=== PATIENT | female | born 1975 | race African-American/Black ===

== ENCOUNTER 2017-04-04 06:39 | Emergency (ER) | payer OTHER ==
[2017-04-04 07:21] LABS: #Basophils 0.1 thou/uL (0.0-0.2); #Eosinphils 0.1 thou/uL (0.0-0.7); #Lymphocytes 3.7 thou/uL (1.20-3.40); #Monocytes 0.9 thou/uL (0.11-0.59); #Neutrophils 3.3 thou/uL (1.40-6.50); %Basophils 1.4 % (0.0-1.0); %Eosinophils 1.7 % (0.0-10.0); %Lymphocytes 45.4 % (21.0-51.0); %Monocytes 10.6 % (0.0-10.0); Hematocrit 28.7 % (36.0-47.0); Mean Platelet Volume 7.7 fL (7.4-10.4); Red Blood Cell (RBC) Count 3.05 mill/uL (4.20-5.40); White Blood Cell (WBC) Count 8.2 thou/uL (4.8-10.8)
[2017-04-04 07:42] LABS: ALT (SGPT) 13 U/L (8-55); AST (SGOT) 54 U/L (5-34); Alkaline Phosphatase 152 U/L (40-150); Anion Gap 13 mmol/L (10-20); BUN (Urea Nitrogen) 5 mg/dL (7.0-18.7); Bilirubin, Total 1.9 mg/dL (0.2-1.2); Calc. Creatinine Clearance 0 mL/min (70-130); Calcium 9.1 mg/dL (7.8-10.44); Carbon Dioxide 22 mmol/L (22-29); Chloride 109 mmol/L (98-107); Estimated GFR-MDRD Greater than 90; Globulin 5.3 g/dL (2.4-3.5); Lipase 98 U/L (8-78); Protein, Total 8.2 g/dL (6.0-8.3)
== END 2017-04-04 10:45 | disposition home or self-care (01) ==
LOC: ERS 06:39
DX: E87.6 Hypokalemia (principal); F10.10 Alcohol abuse, uncomplicated; D64.9 Anemia, unspecified; R18.8 Other ascites; I10 Essential (primary) hypertension; Z87.891 Personal history of nicotine dependence; Z79.899 Other long term (current) drug therapy
CPT/HCPCS: 36415; 80053; 82140; 83690; 85025; 99284

== ENCOUNTER 2019-06-05 17:02 | Inpatient (IN) | payer OTHER, SELFPAY ==
[2019-06-05 17:57] LABS: Hemoglobin 10.7 g/dL (12.0-16.0); Mean Corpuscular HGB CONC 32.8 g/dL (32.0-36.0); Mean Corpuscular Hemoglobin 25.8 pg (27.0-31.0); Mean Corpuscular Volume 78.6 fL (78.0-98.0); Mean Platelet Volume 8.3 fL (7.4-10.4); Platelet Count 113 thou/uL (130-400); RBC Distribution Width 17.9 % (11.5-14.5); Red Blood Cell (RBC) Count 4.15 mill/uL (4.20-5.40); White Blood Cell (WBC) Count 14.4 thou/uL (4.8-10.8)
[2019-06-05 18:11] LABS: Bilirubin Small (Negative); Blood, Urine Large (Negative); Glucose, Urine (Dipstick) Negative (Negative); Leukocyte Trace (Negative); Nitrite Positive (Negative); Protein, Urine (Dipstick) Trace mg/dL (Neg-Trace)
[2019-06-05 18:14] LABS: Clarity Cloudy (Clear)
[2019-06-05 18:17] LABS: Band 12 % (5-11); Lymphocytes 6 % (21-51); MDiff Complete? YES; Monocytes 2 % (0-10); Neutrophil 79 % (42-75); Platelet Morphology Comment Appears Decreased; Reactive Lymphocytes 1 % (0-10); Target Cells SLIGHT = 2-5 cells (100X) (0-1/hpf)
[2019-06-05 18:20] LABS: Bacteria/HPF 4+ HPF (None Seen)
[2019-06-05 18:22] LABS: WBC/HPF 0-3 HPF (0-3)
[2019-06-05 18:23] LABS: Trichomonas/HPF Rare HPF (None Seen)
[2019-06-05 18:23] LABS: ALT (SGPT) 22 U/L (8-55); AST (SGOT) 94 U/L (5-34); Albumin 3.4 g/dL (3.5-5.0); Alkaline Phosphatase 137 U/L (40-110); Anion Gap 15 mmol/L (10-20); BUN (Urea Nitrogen) 10 mg/dL (7.0-18.7); Bilirubin, Total 2.1 mg/dL (0.2-1.2); Calc. Creatinine Clearance 0 mL/min (70-130); Calcium 8.4 mg/dL (7.8-10.44); Carbon Dioxide 19 mmol/L (22-29); Chloride 100 mmol/L (98-107); Estimated GFR-MDRD Greater than 90; Globulin 4.4 g/dL (2.4-3.5); Glucose 106 mg/dL (70-105); Protein, Total 7.8 g/dL (6.0-8.3); Sodium 130 mmol/L (136-145)
--- NOTE | 2019-06-05 18:31 | RAD ---
FRONTAL VIEW CHEST: Indication: Cough. Comparison: 01-10-17 FINDINGS: There is patchy bilateral perihilar opacification as well as superimposed patchy opacity at the left lung base. Cardiac silhouette is accentuated by technique as is pulmonary vasculature. IMPRESSION: Patchy bilateral parenchymal opacities which may be on the basis of atypical pneumonia, or alternativ maliha, edema. Recommend clinical correlation and as necessary imaging follow up may be obtained. POS: ELENITA
[2019-06-05 18:52] LABS: BHCG - Serum Negative (NEGATIVE); Pregs Control Background? CLEAR/WHITE (CLR/WHITE); Pregs Control Bar Appear? YES (CONTROL BAR)
[2019-06-05 18:58] LABS: CKMB 4.7 ng/mL (0-6.6)
[2019-06-05] MEDS ORDERED: cefTRIAXone\\ROCEPHIN 2 GM VIAL ONE (19:51)
[2019-06-05] MEDS ORDERED: Azithromycin 500 MG VIAL ONE (19:51)
[2019-06-05] MEDS ORDERED: Aspirin Chewable 81 MG TAB ONE (19:51)
[2019-06-05] MEDS ORDERED: metroNIDAZOLE 250 MG TAB ONE (20:18)
[2019-06-05] MEDS ORDERED: Oseltamivir 75 MG CAP PO SCH (20:45)
[2019-06-05 20:59] LABS: Lactic Acid 2.4 mmol/L (0.5-2.2)
--- NOTE | 2019-06-05 21:49 | PDOC.FPRHP ---
- History of Present Illness Chief Complaint: Cough History of Present Illness: 43yo F presented to the ED via EMS w/ complaint of cough, fever, and SOB. Pt reported to ED physician that she had been coughing up green phlegm for 2 days. Kids at home are sick as well. Experiencing generalized body aches and weakness. At that time of my evaluation pt was somnolent and verbalized very little. Pt did note that she smoked crack about 2 days ago before her sx had started. She denied currently taking any medication. She denied having medical problems but did state that she knew she had liver disease. Further hx was unable to be obtained. ED Course: Influenza B+, UTI with trich, CXR w/ possible bilateral atypical pna vs edema Received flagyl, azithro, rocephin, and tamiflu. 30mg/kg fluid bolus. - Allergies/Adverse Reactions Allergies Allergy/AdvReac Type Severity Reaction Status Date / Time peach Allergy Rash Verified 06/05/19 23:05 Penicillins Allergy Verified 06/05/19 23:05 - Home Medications Medication Instructions Recorded Confirmed Type No Known 06/05/19 06/05/19 History - History PMHx: Alcoholism cirrhosis, further hx unknown PSHx: Kidney surgery FHx: Unknown Social: Alcoholism, unsure of frequency/quantity; Crack cocaine use - Review of Systems ROS unobtainable: due to mental status General: reports: fever/chills Respiratory: reports: cough, shortness of breath Gastrointestinal: reports: vomiting Neurological: reports: weakness (generalized) - Vital signs BP: 95/47, MAP: 63, Pulse: 108, Resp: 20, Temp: 98.3 (Oral), Pain: 0, O2 sat: 97 on (Room Air), Wt: 68kg - Physical Exam Constitutional: NAD -Constitutional: Somnolent, arousable for very short periods of time HEENT: normocephalic and atraumatic, MMM Neck: supple, no JVD Heart: RRR, normal S1/S2, no murmurs/rubs/gallops, pulses present -Lungs: Inspiratory and expiratory wheezing, mild basilar rales Abdomen: soft, non-tender Musculoskeletal: normal structure, normal tone Neurological: normal sensation -Neurological: Follows commands, limited verbal response Skin: no rash/lesions, good turgor FMR H&P: Results - Labs Result Diagrams: 12/24/19 03:46 06/06/19 03:46 Lab results: WBC 14.4 thou/uL (4.8-10.8) H 06/05/19 17:39 Hgb 10.7 g/dL (12.0-16.0) L 06/05/19 17:39 Hct 32.6 % (36.0-47.0) L 06/05/19 17:39 MCV 78.6 fL (78.0-98.0) 06/05/19 17:39 Plt Count 113 thou/uL (130-400) L 06/05/19 17:39 Band Neuts % (Manual) 12 % (5-11) H 06/05/19 17:39 Sodium 130 mmol/L (136-145) L 06/05/19 17:39 Potassium 4.0 mmol/L (3.5-5.1) 06/05/19 17:39 Chloride 100 mmol/L (98-107) 06/05/19 17:39 Carbon Dioxide 19 mmol/L (22-29) L 06/05/19 17:39 BUN 10 mg/dL (7.0-18.7) 06/05/19 17:39 Creatinine 0.70 mg/dL (0.6-1.1) 06/05/19 17:39 Glucose 106 mg/dL (70-105) H 06/05/19 17:39 Lactic Acid 2.4 mmol/L (0.5-2.2) H 06/05/19 20:34 Calcium 8.4 mg/dL (7.8-10.44) 06/05/19 17:39 Total Bilirubin 2.1 mg/dL (0.2-1.2) H 06/05/19 17:39 AST 94 U/L (5-34) H 06/05/19 17:39 ALT 22 U/L (8-55) 06/05/19 17:39 Alkaline Phosphatase 137 U/L (40-110) H 06/05/19 17:39 CK-MB (CK-2) 4.7 ng/mL (0-6.6) 06/05/19 17:39 Serum Total Protein 7.8 g/dL (6.0-8.3) 06/05/19 17:39 Albumin 3.4 g/dL (3.5-5.0) L 06/05/19 17:39 Urine Ketones Trace mg/dL (Negative) A 06/05/19 18:00 Urine Blood Large (Negative) A 06/05/19 18:00 Urine Nitrite Positive (Negative) A 06/05/19 18:00 Ur Leukocyte Esterase Trace (Negative) H 06/05/19 18:00 Urine RBC 4-6 HPF (0-3) A 06/05/19 18:00 Urine WBC 0-3 HPF (0-3) 06/05/19 18:00 Ur Squamous Epith Cells 4-6 HPF (0-3) A 06/05/19 18:00 Urine Bacteria 4+ HPF (None Seen) A 06/05/19 18:00 - Radiology Interpretation Chest x-ray Status: report reviewed by me (Patchy bilateral parenchymal opacities which may be on the basis of atypical pna or edema.) FMR H&P: A/P - Problem List (1) Atypical pneumonia Current Visit: Yes Status: Acute Code(s): J18.9 - PNEUMONIA, UNSPECIFIED ORGANISM (2) UTI (urinary tract infection) Current Visit: Yes Status: Acute (3) Trichomoniasis Current Visit: Yes Status: Acute (4) Polysubstance abuse Current Visit: Yes Status: Acute Code(s): F19.10 - OTHER PSYCHOACTIVE SUBSTANCE ABUSE, UNCOMPLICATED (5) Influenza B Current Visit: Yes Status: Acute Code(s): J10.1 - FLU DUE TO OTH IDENT INFLUENZA VIRUS W OTH RESP MANIFEST (6) Alcoholism Current Visit: Yes Status: Acute Code(s): F10.20 - ALCOHOL DEPENDENCE, UNCOMPLICATED (7) Cirrhosis Current Visit: No Status: Acute Code(s): K74.60 - UNSPECIFIED CIRRHOSIS OF LIVER Qualifiers: Hepatic cirrhosis type: alcoholic cirrhosis Ascites presence: with ascites Qualified Code(s): K70.31 - Alcoholic cirrhosis of liver with ascites Comment: appears to be end stage with ongoing alc use - Plan Sepsis 2/2 Atypical Pneumonia w/ positive Influenza and Polysubstance abuse - CXR showing bilateral atypical pna vs edema - Recent crack cocaine use prior to sx could have resulted in pneumonitis - Continue to monitor respiratory status, f/u cxr for resolution - Procal of 0.51 - Confirmed influenza B positive - Treat with tamiflu BID - Received azitho and rocephin in ED to cover for atypical pna - Leukocytosis with left shift - continue empiric abx for CAP - LR @ 125 for sepsis - Duoneb treatments prn, supplemental O2 w/ goal >92 - Admit to IMUC for bilateral pna findings Indeterminate troponin - 0.042 -> 0.056 - Likely 2/2 demand ischemia from cocaine use and respiratory illness - Continue to trend UTI - +nitrite and leuks - Rocephin in ED, will continue Trichomoniasis - Seen on UA - Treated w/ 2g Flagyl in ED Alcoholism w/ Hx of Cirrhosis and Ascites - Currently somnolent w/ alcohol level of 106 - Ammonia of 97, likely near patient's baseline - Will monitor pt's mental status as alcohol level resolves, if continued AMS will consider lactulose tx - ASE protocol Lactic Acidosis - IVF resuscitation and optimizing respiratory status - Trend for resolution Hyponatremia - Chronic based on previous visits - Likely 2/2 to beer potomania Code: Full Diet: HH IVF: LR @ 125 VTE: SCD and lovenox Dispo: Admit to IMCU. ELOS >48hr PCP: No doc FMR H&P: Upper Level - Pertinent history 43 yo F w/ PMH of polysubstance abuse and alcohol abuse with alcoholic cirrhosis and preior episodes of alcoholic hepatitis presetns to ED with 2-3 day history of increasing weakness and productvie cough. Pt somnolent for interview. Majority of history obtained from ER records and pt chart. Per ER note reports weakness, productive cough and sick contacts at home. Bedside abg showed metabolic acidosis with respiratory compensation: pCO2 of 28, pH 7.35 and pO2 of 88. Lactic acid initially 3.0. She was given flagyl IV, rocephin ansd azithromycin in ED in addition to 2L IVF. Found to be hyponatremic @ 130 which on review of previous visits appears to be chronic. CXR reviewed and read reports concern of infiltrate vs edema. No evidence of overload on exam. XR did show scattered peribronchial cuffing and concern of LLL and perihilar infiltrates. Flu B pos in ED. - Pertinent findings ROS: Unable to obtain PE: Gen: Somnolent/Uncooperative, ill appearing HEENT: NCAT CV: Tachycardic: regular rhythm. No MRG. No LE edema or evidence of volume overload Resp: Scattered inspiratory and end expiratory wheezes throughout with crackles in left base concerning for iinfectious process. No retractions. Tachypnea. Abd: Mildly distended, no palpable fluid wave, NT, bsx4 Neuro: Somnolent, no focal deficit Psych: Somnolent vs intoxicated - Plan Date/Time: 06/05/19 6717 I, Froylan Ybarra, , have evaluated this patient and agree with findings/ plan as outlined by internal sales resident. Pertinent changes/additions are listed here. 1) Sepsis 2/2 flu - admit to IMCU - cont IVF with LR @ 125 - Monitor BP maintain MAP >65 - CXR concerning for pneumonia viral vs bacterial, procal pos @ .51 and leukocytosis with left shift, will rx for cap and monitor clinical response. - Nebs PRN - Steroids 40mg qdx5 days 2) H/O alcohol abuse: - ASE with meds - mild elevateion in AST - alcohol level 106 3) h/o cirrhosis - monitor fluid status - ast 96 - likely related to alcohol abuse vs drug abuse - ammonia 96, lactulose titrated to 3-4 BM/day - elyte replacement 4) Hyponatremia - check serum osmoles, urine osmoles and urine sodium - likely related to alcohol abuse vs decreased solute intake - studies pending 5) Luekocytosis - abx rocephin and azithromycin, monitor repsonse 6) Lactic acidosis: 2/2 #1 - IVF resuscitate and trend Dispo: Currently stable, will admit to IMCU given b/l infiltrates and monitor for clinical repsonse. Rx for cap and flu. IVF resuscitate and await hyponatremia labs. ASE for alcohol abuse. PRNs for respiratory support. Addendum - Attending - Attending Attestation Date/Time: 06/06/19 1951 I personally evaluated the patient and discussed the management with Dr. Ybarra and Ira at time of admission last night. I agree with the History, Examination, Assessment and Plan documented above with any addition or exceptions noted below.
[2019-06-05 22:04] LABS: Amphetamine Not Detected (NotDetected); Barbiturates Screen Not Detected (NotDetected); Benzodiazepine Screen Not Detected (NotDetected); Cocaine Metabolite Screen Detected (NotDetected); Medtox Reader # READER 4; Methadone Not Detected (NotDetected); Methamphetamine Not Detected (NotDetected); Opiate Screen Not Detected (NotDetected); Oxycodone Screen Not Detected (NotDetected); Phencyclidine (PCP) Not Detected (NotDetected); THC/Cannabinoid Screen Not Detected (NotDetected); Tricyclic Screen Not Detected (NotDetected)
[2019-06-05 22:05] LABS: Medtox Control Line Valid? VALID (VALID)
[2019-06-05 22:18] LABS: Troponin I 0.056 ng/mL (< 0.028)
[2019-06-05] MEDS ORDERED: Acetaminophen 325 MG TAB PO PRN (22:43)
[2019-06-05] MEDS ORDERED: Albuterol Sulfate 1.25 MG/3 ML NEB NEB PRN (22:43)
[2019-06-05] MEDS ORDERED: Acetaminophen 650 MG Suppository PR PRN (22:43)
[2019-06-05 22:49] VITALS: BMI 26.4
[2019-06-05] MEDS: Sodium Chloride 0.9% 1,000 ML IV SCH (23:30)
[2019-06-05 23:43] LABS: HBCM Index 0.07 S/CO (0-0.79); HBSAg Index 0.23 S/CO (0-0.99); HIV (1/2) Antibody/Antigen Non-Reactive (NonReactive); HIV 1/2 INDEX 0.09 S/CO (<1.00); Hep A IgM AB Non-Reactive (NonReactive); Hep A IgM S/CO 0.22 S/CO (0-0.79); Hep B Surf Ag Non-Reactive S/CO (NonReactive); Hep C IgG Ab Non-Reactive (NonReactive); Hep C Index 0.06 S/CO (0-0.79); Hepatitis B Core IgM Abs Non-Reactive (NonReactive)
[2019-06-06 00:25] LABS: Troponin I 0.049 ng/mL (< 0.028)
[2019-06-06] MEDS ORDERED: Diazepam 5 MG TAB PO PRN (00:37)
[2019-06-06] MEDS ORDERED: Thiamine HCl 200 MG/2 ML VIAL IM SCH (00:45)
[2019-06-06] MEDS ORDERED: Diazepam 5 MG TAB PO SCH (00:45)
[2019-06-06] MEDS: Lactated Ringer's 1,000 ML IV SCH ×4 (01:27→17:44)
[2019-06-06 02:30] LABS: ALV-art Gradient 25.705 (0-20); Actual Bicarbonate (HCO3a) 15.7 mEq/L (22-28); Analyzer IN Cardio ER; Base Excess (BEa) -8.6 mEq/L (-2.0 to +3.0); CO2 Tension 28.5 mmHg (35.0-45.0); Calcium, Ionized 1.09 mmol/L (1.12-1.30); Carboxyhemoglobin (COHb) 0.4 gm% (0.0-3.0); Hemoglobin (Hb) 10.2 g/dL (12.0-16.0); O2 Tension (PaO2) 88.4 mmHg (80.0-100.0); Potassium - ABG Lab 3.15 mmol/L (3.70-5.30); Puncture Site RRA; pH, Arterial 7.36 (7.35-7.45)
[2019-06-06 04:30] LABS: Anion Gap 11 mmol/L (10-20); BUN (Urea Nitrogen) 6 mg/dL (7.0-18.7); Calc. Creatinine Clearance 130 mL/min (70-130); Calcium 8.2 mg/dL (7.8-10.44); Carbon Dioxide 20 mmol/L (22-29); Chloride 109 mmol/L (98-107); Estimated GFR-MDRD Greater than 90; Glucose 87 mg/dL (70-105); Potassium 3.6 mmol/L (3.5-5.1); Sodium 136 mmol/L (136-145)
[2019-06-06] MEDS: Sodium Chloride 0.9% 1,000 ML IV SCH ×2 (05:14→05:15)
[2019-06-06 06:05] LABS: #Basophils 0.1 thou/uL (0.0-0.2); #Eosinphils 0.1 thou/uL (0.0-0.7); #Lymphocytes 1.8 thou/uL (1.20-3.40); #Monocytes 1.2 thou/uL (0.11-0.59); #Neutrophils 9.3 thou/uL (1.40-6.50); %Basophils 0.6 % (0.0-1.0); %Eosinophils 0.5 % (0.0-10.0); %Lymphocytes 14.4 % (21.0-51.0); %Monocytes 9.6 % (0.0-10.0); %Neutrophils 74.9 % (42.0-75.0); Band 20 % (5-11); Hemoglobin 9.7 g/dL (12.0-16.0); Lymphocytes 12 % (21-51); MDiff Complete? YES; Mean Corpuscular HGB CONC 33.1 g/dL (32.0-36.0); Mean Corpuscular Hemoglobin 26.2 pg (27.0-31.0); Mean Corpuscular Volume 79.1 fL (78.0-98.0); Mean Platelet Volume 7.6 fL (7.4-10.4); Monocytes 4 % (0-10); Neutrophil 64 % (42-75); Platelet Count 88 thou/uL (130-400); Platelet Morphology Comment Appears Decreased; RBC Distribution Width 17.7 % (11.5-14.5); Red Blood Cell (RBC) Count 3.72 mill/uL (4.20-5.40); Target Cells SLIGHT = 2-5 cells (100X) (0-1/hpf); White Blood Cell (WBC) Count 12.4 thou/uL (4.8-10.8)
--- NOTE | 2019-06-06 07:25 | PDOC.FM ---
- Subjective Subjective: Patient states she feels feverish this AM. No other complaints. Eating/ drinking. She is alert this morning, states she is feeling confused this AM. - Objective Vital Signs & Weight: Vital Signs (12 hours) Temp Pulse Ox 06/06/19 03:37 99.5 F 06/06/19 01:00 99.0 F 06/05/19 22:30 98.1 F 96 Weight Weight 67.614 kg Most Recent Monitor Data Heart Rate from ECG 111 NIBP 132/70 NIBP BP-Mean 90 Respiration from ECG 23 SpO2 100 I&O: 06/05/19 06/06/19 06/07/19 06:59 06:59 06:59 Intake Total 1534 Output Total 775 Balance 759 Result Diagrams: 06/06/19 03:46 06/06/19 03:46 Phys Exam - Physical Examination Pt appears uncomfortable, trembling Respiratory: no rhonchi expiratory wheezing, loudest at the bases tachycardic, no rubs or murmurs Gastrointestinal: soft, no distention, positive bowel sounds Musculoskeletal: no edema, pulses present Neurological: moves all 4 limbs Deviation from normal: alert, asterixis present Skin: normal turgor, cap refill <2 seconds Dx/Plan (1) Alcoholism Code(s): F10.20 - ALCOHOL DEPENDENCE, UNCOMPLICATED Status: Acute (2) Atypical pneumonia Code(s): J18.9 - PNEUMONIA, UNSPECIFIED ORGANISM Status: Acute (3) Influenza B Code(s): J10.1 - FLU DUE TO OTH IDENT INFLUENZA VIRUS W OTH RESP MANIFEST Status: Acute (4) Polysubstance abuse Code(s): F19.10 - OTHER PSYCHOACTIVE SUBSTANCE ABUSE, UNCOMPLICATED Status: Acute (5) Trichomoniasis Status: Acute (6) UTI (urinary tract infection) Status: Acute (7) Alcoholic hepatitis Code(s): K70.10 - ALCOHOLIC HEPATITIS WITHOUT ASCITES Status: Acute Qualifiers: Ascites presence: with ascites Qualified Code(s): K70.11 - Alcoholic hepatitis with ascites (8) Cirrhosis Code(s): K74.60 - UNSPECIFIED CIRRHOSIS OF LIVER Status: Acute Qualifiers: Hepatic cirrhosis type: alcoholic cirrhosis Ascites presence: with ascites Qualified Code(s): K70.31 - Alcoholic cirrhosis of liver with ascites (9) Hyponatremia Code(s): E87.1 - HYPO-OSMOLALITY AND HYPONATREMIA Status: Acute (10) UTI (urinary tract infection) Status: Acute Qualifiers: Urinary tract infection type: acute cystitis Hematuria presence: without hematuria Qualified Code(s): N30.00 - Acute cystitis without hematuria - Plan Plan: 1) Sepsis 2/2 flu - admit to IMCU - cont IVF with LR @ 125 - Monitor BP maintain MAP >65 - CXR concerning for pneumonia viral vs bacterial, procal positive @ .51 and leukocytosis with left shift, will rx for cap and monitor clinical response. - Nebs PRN - Possible underlying asthma, no previous diagnosis; Steroids 40mg qdx5 days - ibuprofen for fever 2) H/O alcohol abuse: - ASE with meds - mild elevation in AST - alcohol level 106 - mentation improved this morning - thiamine daily 3) h/o cirrhosis - monitor fluid status - ast 96 - likely related to alcohol abuse vs drug abuse - ammonia 96, lactulose titrated to 3-4 BM/day - monitor and replace electrolytes as needed 4) Hyponatremia - resolved - likely related to alcohol abuse vs decreased solute intake 5) Leukocytosis - abx rocephin and azithromycin 6) Lactic acidosis: 2/2 #1 - IVF resuscitate and trend Dispo: Currently stable, tx for cap and flu. IVF resuscitation. ASE and thiamine for alcohol abuse. PRNs for respiratory support. Addendum - Attending - Attending Attestation Date/Time: 06/06/19 1009 I personally evaluated the patient and discussed the management with Dr. Philippe I agree with the History, Examination, Assessment and Plan documented above with any addition or exceptions noted below. Continue Azithro, rocephin, tamiflu and steroids. D/C diazepam and start lorazapam for ASE protocol. States last drink was 3 days ago. patient more somnolent this morning but will awaken to verbal stimulation. Unsure if she wants to stop drinking at this time. Will f/u during hospital stay. Transfer to floor.
[2019-06-06] MEDS: Folic Acid 1 MG TAB PO SCH (07:58)
[2019-06-06] MEDS: Multivitamin W/ Minerals 1 TAB PO SCH (07:58)
[2019-06-06] MEDS: predniSONE 20 MG TAB PO SCH (07:59)
[2019-06-06] MEDS: Oseltamivir 75 MG CAP PO SCH ×2 (07:59→20:11)
[2019-06-06] MEDS: Enoxaparin Sodium 40 MG/0.4 ML SYRINGE SC SCH (08:04)
[2019-06-06 08:24] LABS: Lactic Acid 1.5 mmol/L (0.5-2.2)
[2019-06-06] MEDS ORDERED: FLU VACC QS2019-20(6MOS UP)/PF 60 MCG/0.5 ML SYRINGE IM ONE (09:00)
[2019-06-06] MEDS: Thiamine 100 MG TAB PO SCH (09:11)
[2019-06-06] MEDS ORDERED: Lorazepam 2 MG/ML VIAL SLOW IVP PRN (09:53)
[2019-06-06 10:45] LABS: Iron 24 ug/dL (50-170); Iron Binding Capacity, Total 299 mcg/dL (265-497); Transferrin, Serum 239 mg/dL (180-382)
--- NOTE | 2019-06-06 13:24 | CON ---
DATE OF CONSULTATION: HISTORY OF PRESENT ILLNESS: Eunice Styles is a 43-year-old female, who presented with shortness of breath. She was apparently noted to be wheezing when she was admitted and wheezing this morning, although she is pretty clear at this time. She admits to smoking crack cocaine 2 days ago. This correlates with the time she started coughing up sputum. She is positive for influenza B. PAST MEDICAL HISTORY: Remarkable for: 1. Admission in 2017 for alcoholic hepatitis and cirrhosis with ascites. 2. History of E coli sepsis with bacteremia during that admission. 3. History of encephalopathy during that admission. 4. History of renal insufficiency during that admission. 5. History of alcohol abuse prior to that admission. FAMILY HISTORY: Negative for lung disease in early age. REVIEW OF SYSTEMS: Otherwise negative. PHYSICAL EXAMINATION: VITAL SIGNS: Temperature is 100.6, oximetry is 97%, heart rate is 100, and blood pressure 159/87. HEAD AND NECK: Unremarkable. She has very poor dentition. NECK: Without lymphadenopathy. LUNGS: Remarkable for end-expiratory wheezes. HEART: Regular rhythm. ABDOMEN: Soft. EXTREMITIES: Without clubbing, cyanosis, or edema. IMAGING STUDIES: Chest x-ray was reviewed by me. Film was interpreted as having patchy infiltrates, but is fairly unimpressive film. There may be something small in her right upper lobe and something small in her left lower lobe and may be medially at her right base, but it is a fairly unimpressive film. IMPRESSION: 1. Influenza B. 2. Pneumonia versus "crack lung.". 3. She is still mildly bronchospastic. There is no real reason for her to stay in the intermediate care unit as she is in absolutely no distress. She can be transferred to medical bed. 4. Other problems include anemia with hemoglobin 9.7, likely anemia of chronic disease. Her hemoglobin was in the 8 g range when she was in the hospital in 2017. 5. History of cirrhosis. 6. History of coagulopathy with her cirrhosis. Her last INR in this medical record system was a past admission andher INR was greater than 2. 7. Her drug screen was positive for cocaine. PLAN: We will continue supportive care. She is close to a point where she could be considered for discharge home. Job ID: [id number] [facility]
[2019-06-06] MEDS ORDERED: Vancomycin HCl 1.25 GM in Sodium Chloride 0.9% 250 ML 250 ML IVPB SCH (16:15)
--- NOTE | 2019-06-06 16:29 | PDOC.BPN ---
- Brief Progress Note Patient 2/2 blood cultures coag negative staph Start IV vancomycin, will await sensitivities.
[2019-06-06] MEDS: Vancomycin HCl 1 GM in Premix Bag 1 BAG IVPB SCH (17:44)
[2019-06-06] MEDS: Azithromycin 500 MG in Sodium Chloride 0.9% 250 ML 250 ML IVPB SCH (20:06)
[2019-06-06] MEDS: cefTRIAXone\\ROCEPHIN 1 GM in Sodium Chloride 0.9% 100 ML IVPB SCH (20:07)
[2019-06-07] MEDS: Vancomycin HCl 1 GM in Premix Bag 1 BAG IVPB SCH ×2 (02:27→08:45)
[2019-06-07] MEDS: Lactated Ringer's 1,000 ML IV SCH ×2 (02:29→08:23)
[2019-06-07] MEDS ORDERED: Diazepam 5 MG TAB PO PRN (04:00)
[2019-06-07 06:27] LABS: Hemoglobin 9.9 g/dL (12.0-16.0); Mean Corpuscular HGB CONC 32.5 g/dL (32.0-36.0); Mean Corpuscular Hemoglobin 26.1 pg (27.0-31.0); Mean Corpuscular Volume 80.4 fL (78.0-98.0); RBC Distribution Width 18.4 % (11.5-14.5); Red Blood Cell (RBC) Count 3.77 mill/uL (4.20-5.40); White Blood Cell (WBC) Count 12.2 thou/uL (4.8-10.8)
[2019-06-07 06:38] LABS: #Basophils 0.1 thou/uL (0.0-0.2); #Eosinphils 0.1 thou/uL (0.0-0.7); #Lymphocytes 2.6 thou/uL (1.20-3.40); #Monocytes 1.3 thou/uL (0.11-0.59); #Neutrophils 8.2 thou/uL (1.40-6.50); %Basophils 0.9 % (0.0-1.0); %Eosinophils 0.5 % (0.0-10.0); %Lymphocytes 21.1 % (21.0-51.0); %Monocytes 10.5 % (0.0-10.0); %Neutrophils 67.1 % (42.0-75.0); ALT (SGPT) 17 U/L (8-55); AST (SGOT) 70 U/L (5-34); Alkaline Phosphatase 152 U/L (40-110); Anion Gap 8 mmol/L (10-20); BUN (Urea Nitrogen) 7 mg/dL (7.0-18.7); Bilirubin, Total 1.3 mg/dL (0.2-1.2); Calc. Creatinine Clearance 122 mL/min (70-130); Calcium 8.7 mg/dL (7.8-10.44); Carbon Dioxide 26 mmol/L (22-29); Chloride 105 mmol/L (98-107); Estimated GFR-MDRD Greater than 90; Glucose 110 mg/dL (70-105); MDiff Complete? YES; Mean Platelet Volume 12.1 fL (7.4-10.4); Platelet Count 97 thou/uL (130-400); Platelet Morphology Comment Appears Decreased; Potassium 3.3 mmol/L (3.5-5.1); Sodium 136 mmol/L (136-145); Target Cells SLIGHT = 2-5 cells (100X) (0-1/hpf)
--- NOTE | 2019-06-07 07:21 | PDOC.FM ---
- Subjective Subjective: Denies chest pain this morning, denies SOB. She is eating, drinking, voiding, stooling. Pt reports she stooled 7x yesterday. Naeo. She is alert and interactive this morning - Objective Vital Signs & Weight: Vital Signs (12 hours) Temp Pulse Resp BP BP Pulse Ox 06/07/19 03:37 98.1 F 99 20 160/97 H 99 06/07/19 00:00 151/93 H 06/06/19 23:51 98.1 F 100 20 151/93 H 99 06/06/19 20:31 98 06/06/19 20:00 98.1 F 102 H 20 150/83 H 150/83 H 98 Weight Weight 67.614 kg Most Recent Monitor Data Heart Rate from ECG 83 NIBP 159/87 NIBP BP-Mean 111 Respiration from ECG 16 SpO2 98 I&O: 06/06/19 06/07/19 06/08/19 06:59 06:59 06:59 Intake Total 1534 3045 Output Total 775 Balance 759 3045 Result Diagrams: 06/07/19 06:08 06/07/19 06:08 Phys Exam - Physical Examination Constitutional: NAD alert and orientec loud expiratory wheezing, worse on L side Cardiovascular: RRR, no significant murmur Gastrointestinal: soft, non-tender, no distention, positive bowel sounds Musculoskeletal: no edema, pulses present Neurological: non-focal, moves all 4 limbs Psychiatric: normal affect Skin: normal turgor, cap refill <2 seconds Dx/Plan (1) Alcoholism Code(s): F10.20 - ALCOHOL DEPENDENCE, UNCOMPLICATED Status: Acute (2) Atypical pneumonia Code(s): J18.9 - PNEUMONIA, UNSPECIFIED ORGANISM Status: Acute (3) Influenza B Code(s): J10.1 - FLU DUE TO OTH IDENT INFLUENZA VIRUS W OTH RESP MANIFEST Status: Acute (4) Polysubstance abuse Code(s): F19.10 - OTHER PSYCHOACTIVE SUBSTANCE ABUSE, UNCOMPLICATED Status: Acute (5) Trichomoniasis Status: Acute (6) UTI (urinary tract infection) Status: Acute (7) Alcoholic hepatitis Code(s): K70.10 - ALCOHOLIC HEPATITIS WITHOUT ASCITES Status: Acute Qualifiers: Ascites presence: with ascites Qualified Code(s): K70.11 - Alcoholic hepatitis with ascites (8) Cirrhosis Code(s): K74.60 - UNSPECIFIED CIRRHOSIS OF LIVER Status: Acute Qualifiers: Hepatic cirrhosis type: alcoholic cirrhosis Ascites presence: with ascites Qualified Code(s): K70.31 - Alcoholic cirrhosis of liver with ascites (9) Hyponatremia Code(s): E87.1 - HYPO-OSMOLALITY AND HYPONATREMIA Status: Acute (10) UTI (urinary tract infection) Status: Acute Qualifiers: Urinary tract infection type: acute cystitis Hematuria presence: without hematuria Qualified Code(s): N30.00 - Acute cystitis without hematuria - Plan Plan: 1) Sepsis 2/2 flu - CXR concerning for pneumonia viral vs bacterial, procal positive @ 0.51 with L shift - rocephin and azithromycin, tamiflu for influenza B - Nebs PRN - Possible underlying asthma, states she was diagnosed as a child; Steroids 40mg qdx5 days - ibuprofen for fever - Vancomycin added yesterday for 2/2 blood cultures g+ cocci, today shows Coag neg staph and staph epidermidis, likely contaminants, d/c vancomycin 2) H/O alcohol abuse: - ASE with meds - mild elevation in AST - alcohol level 106 - thiamine daily 3) h/o cirrhosis - monitor fluid status - ast 96 - likely related to alcohol abuse vs drug abuse - ammonia 96, lactulose titrated to 3-4 BM/day - monitor and replace electrolytes as needed 4) Hyponatremia - resolved - likely related to alcohol abuse vs decreased solute intake 5) Lactic acidosis: 2/2 #1 - resolved 6) NSTEMI type 2 - Trop indeterminate, down trended 7) Hypokalemia -3.3, monitor and replaced as needed Dispo: Currently stable, tx for cap and flu. Stop IVF. ASE and thiamine for alcohol abuse. PRNs for respiratory support. Addendum - Attending - Attending Attestation Date/Time: 06/07/19 1151 I personally evaluated the patient and discussed the management with Dr. Philippe I agree with the History, Examination, Assessment and Plan documented above with any addition or exceptions noted below. Blood cultures 2/2 positive for different species likely contaminant. d/c vanc and redraw blood cultures. Start amlodipine for BP control and SHEMAR neb for SOB. Monitor today with likely d/c tomorrow. Continue azithro and rocephin.
[2019-06-07] MEDS ORDERED: Potassium Chloride 20 MEQ TAB PO SCH (08:00)
[2019-06-07] MEDS: Oseltamivir 75 MG CAP PO SCH ×2 (08:42→19:42)
[2019-06-07] MEDS: Magnesium Oxide 400 MG TAB PO SCH (08:42)
[2019-06-07] MEDS: Folic Acid 1 MG TAB PO SCH (08:42)
[2019-06-07] MEDS: predniSONE 20 MG TAB PO SCH (08:42)
[2019-06-07] MEDS: Multivitamin W/ Minerals 1 TAB PO SCH (08:43)
[2019-06-07] MEDS: Thiamine 100 MG TAB PO SCH (08:43)
[2019-06-07] MEDS: Enoxaparin Sodium 40 MG/0.4 ML SYRINGE SC SCH (08:43)
[2019-06-07] MEDS ORDERED: Thiamine 100 MG TAB PO SCH (09:00)
[2019-06-07] MEDS ORDERED: Hydrochlorothiazide 25 MG TAB PO SCH (09:00)
[2019-06-07 09:41] LABS: INR-International Normal Ratio 1.6; Prothrombin Time 18.6 SEC (12.0-14.7)
[2019-06-07] MEDS ORDERED: Amlodipine 5 MG TAB PO SCH (10:15)
[2019-06-07] MEDS: Albuterol Sulfate 2.5 mg/3 ml Neb NEB SCH ×2 (14:55→19:26)
[2019-06-07] MEDS: Azithromycin 500 MG in Sodium Chloride 0.9% 250 ML 250 ML IVPB SCH (19:43)
[2019-06-07] MEDS: cefTRIAXone\\ROCEPHIN 1 GM in Sodium Chloride 0.9% 100 ML IVPB SCH (19:52)
[2019-06-08] MEDS: Albuterol Sulfate 2.5 mg/3 ml Neb NEB SCH ×2 (01:27→07:18)
[2019-06-08 07:00] LABS: #Basophils 0.1 thou/uL (0.0-0.2); #Eosinphils 0.1 thou/uL (0.0-0.7); #Monocytes 1.5 thou/uL (0.11-0.59); #Neutrophils 8.8 thou/uL (1.40-6.50); %Basophils 0.7 % (0.0-1.0); %Eosinophils 0.4 % (0.0-10.0); %Lymphocytes 22.4 % (21.0-51.0); %Monocytes 10.9 % (0.0-10.0); %Neutrophils 65.6 % (42.0-75.0); Hemoglobin 10.3 g/dL (12.0-16.0); Mean Corpuscular Volume 81.2 fL (78.0-98.0); Platelet Count 117 thou/uL (130-400); RBC Distribution Width 19.2 % (11.5-14.5); Red Blood Cell (RBC) Count 3.98 mill/uL (4.20-5.40); White Blood Cell (WBC) Count 13.5 thou/uL (4.8-10.8)
--- NOTE | 2019-06-08 07:08 | PDOC.FM ---
- Subjective Subjective: Pt reports she is feeling well this morning, ready to go home. No complaints this morning. Eating, drinking, voiding, stooling. - Objective Vital Signs & Weight: Vital Signs (12 hours) Temp Pulse Resp BP BP Pulse Ox 06/08/19 04:00 98.1 F 99 20 161/89 H 161/89 H 97 06/08/19 00:00 98.3 F 98 20 151/87 H 151/87 H 99 06/07/19 22:13 97 06/07/19 20:00 98.0 F 101 H 20 152/96 H 152/96 H 97 06/07/19 19:26 72 12 Weight Weight 67.614 kg Most Recent Monitor Data Heart Rate from ECG 83 NIBP 159/87 NIBP BP-Mean 111 Respiration from ECG 16 SpO2 98 I&O: 06/07/19 06/08/19 06/09/19 06:59 06:59 06:59 Intake Total 3045 1180 Balance 3045 1180 Result Diagrams: 06/08/19 06:26 06/07/19 06:08 Phys Exam - Physical Examination Constitutional: NAD Respiratory: no wheezing, clear to auscultation bilateral Cardiovascular: RRR, no significant murmur Gastrointestinal: soft, non-tender Musculoskeletal: no edema, pulses present Neurological: non-focal, moves all 4 limbs Psychiatric: normal affect, A&O x 3 Skin: cap refill <2 seconds Dx/Plan (1) Alcoholism Code(s): F10.20 - ALCOHOL DEPENDENCE, UNCOMPLICATED Status: Acute (2) Atypical pneumonia Code(s): J18.9 - PNEUMONIA, UNSPECIFIED ORGANISM Status: Acute (3) Influenza B Code(s): J10.1 - FLU DUE TO OTH IDENT INFLUENZA VIRUS W OTH RESP MANIFEST Status: Acute (4) Polysubstance abuse Code(s): F19.10 - OTHER PSYCHOACTIVE SUBSTANCE ABUSE, UNCOMPLICATED Status: Acute (5) Trichomoniasis Status: Acute (6) UTI (urinary tract infection) Status: Acute (7) Alcoholic hepatitis Code(s): K70.10 - ALCOHOLIC HEPATITIS WITHOUT ASCITES Status: Acute Qualifiers: Ascites presence: with ascites Qualified Code(s): K70.11 - Alcoholic hepatitis with ascites (8) Cirrhosis Code(s): K74.60 - UNSPECIFIED CIRRHOSIS OF LIVER Status: Acute Qualifiers: Hepatic cirrhosis type: alcoholic cirrhosis Ascites presence: with ascites Qualified Code(s): K70.31 - Alcoholic cirrhosis of liver with ascites (9) Hyponatremia Code(s): E87.1 - HYPO-OSMOLALITY AND HYPONATREMIA Status: Acute (10) UTI (urinary tract infection) Status: Acute Qualifiers: Urinary tract infection type: acute cystitis Hematuria presence: without hematuria Qualified Code(s): N30.00 - Acute cystitis without hematuria (11) FLAKITA (acute kidney injury) Code(s): N17.9 - ACUTE KIDNEY FAILURE, UNSPECIFIED Status: Resolved (12) Cocaine abuse Code(s): F14.10 - COCAINE ABUSE, UNCOMPLICATED Status: Acute - Plan Plan: 1) Sepsis 2/2 flu and CAP - CXR concerning for pneumonia viral vs bacterial, procal positive @ 0.51 with L shift - transition to PO cefdinir and azithromycin, tamiflu for influenza B - Nebs PRN - Possible underlying asthma, states she was diagnosed as a child; Steroids 40mg qdx5 days, albuterol PRN - ibuprofen for fever 2) H/O alcohol abuse: - ASE with meds - mild elevation in AST - alcohol level 106 - thiamine daily 3) h/o cirrhosis - monitor fluid status - ast 96 - likely related to alcohol abuse vs drug abuse - ammonia 96, lactulose titrated to 3-4 BM/day 4) Hyponatremia - resolved, likely related to pneumonia 5) Lactic acidosis: 2/2 #1 - resolved 6) NSTEMI type 2 - Trop indeterminate, down trended 7) Hypokalemia -3.3, monitor and replaced as needed 8) Cocaine abuse - aware 9) UTI 2/2 E coli - s/p treatment with rocephin 10) Trichomoniasis -s/p treatment Dispo: Currently stable, tx for cap and flu. Plan to DC home today with antibiotics for CAP and flu with close follow up. Addendum - Attending - Attending Attestation Date/Time: 06/08/19 7521 I personally evaluated the patient and discussed the management with Dr. Philippe I agree with the History, Examination, Assessment and Plan documented above with any addition or exceptions noted below. Repeat cultures negative. D/c today.
[2019-06-08 07:52] VITALS: BP 130/85; TEMP 98.5
[2019-06-08] MEDS: predniSONE 20 MG TAB PO SCH (08:36)
[2019-06-08] MEDS: Folic Acid 1 MG TAB PO SCH (08:38)
[2019-06-08] MEDS: Enoxaparin Sodium 40 MG/0.4 ML SYRINGE SC SCH (08:38)
[2019-06-08] MEDS: Magnesium Oxide 400 MG TAB PO SCH (08:38)
[2019-06-08] MEDS: Oseltamivir 75 MG CAP PO SCH (08:39)
[2019-06-08] MEDS: Multivitamin W/ Minerals 1 TAB PO SCH (08:39)
[2019-06-08] MEDS: Thiamine 100 MG TAB PO SCH (08:39)
[2019-06-08] MEDS ORDERED: Cefdinir 300 MG CAP PO SCH (09:00)
[2019-06-08] MEDS ORDERED: Amlodipine 5 MG TAB PO SCH (09:00)
[2019-06-08] MEDS ORDERED: Azithromycin 250 MG TAB PO SCH (09:00)
[2019-06-08] MEDS ORDERED: Albuterol Sulfate 2.5 mg/3 ml Neb NEB SCH (13:00)
--- NOTE | 2019-06-08 14:07 | DIS ---
DATE OF ADMISSION: 06/05/2019 DATE OF DISCHARGE: 06/08/2019 RESIDENT: Mariam Philippe MD ADMITTING ATTENDING: Kiko Paredes MD DISCHARGE ATTENDING: Soren Brown MD. CONSULTS: Pulmonology, Dr. Jimenez. PROCEDURE PERFORMED: Chest x-ray, 06/05/2019, impression; patchy bilateral parenchymal opacities, which may be on the basis of atypical pneumonia or alternatively edema. PRIMARY DIAGNOSES: 1. Sepsis secondary to influenza. 2. Sepsis secondary to community-acquired pneumonia. 3. Asthma. SECONDARY DIAGNOSES: 1. History of alcohol abuse. 2. History of cirrhosis. 3. Hyponatremia. 4. Lactic acidosis. 5. [id number]-[id number] myocardial infarction, type 2. 6. Hypokalemia. 7. Cocaine abuse. 8. Urinary tract infection secondary to Escherichia coli. 9. Trichomoniasis, vaginal. DISCHARGE MEDICATIONS: 1. Amlodipine 5 mg p.o. daily. 2. Azithromycin 250 mg p.o. daily. 3. Cefdinir 300 mg p.o. b.i.d. 4. Lactulose 10 g p.o. t.i.d. 5. Multivitamin. 6. Oseltamivir 75 mg p.o. b.i.d. 7. Prednisone 40 mg p.o. q.a.m. with breakfast. 8. Thiamine 100 mg p.o. daily. DISCONTINUED MEDICATIONS: None. HISTORY OF PRESENT ILLNESS/HOSPITAL COURSE: A 43-year-old female, presented to the ED via EMS with complaint of cough, fever, and shortness of breath. The patient reported that she had been coughing up green phlegm for 2 days, and her kids were at home sick as well. She experienced generalized body aches and weakness. The patient reported that she had smoked crack 2 days prior before the symptoms had started. She denied any current medications or medical problems, but states she knew she had liver disease. In the ED, she was positive for influenza B. Urine showed infection. The patient also had trichomoniasis. Chest x-ray showed bilateral atypical pneumonia. The patient received Flagyl, azithromycin, Rocephin, and Tamiflu as well as 30 fluid bolus for sepsis. The patient was treated during her stay with azithromycin and Rocephin for her pneumonia as well as to cover atypical pneumonia. She was given steroids and DuoNeb as well because she was wheezing. The patient reports a history of asthma. The patient had an indeterminate troponin that trended down. The patient was treated for an E. coli UTI with Rocephin. She was also treated with Flagyl for trichomoniasis. The patient had lactic acidosis on presentation that resolved. The patient also has cirrhosis with ascites. Her ammonia was 97 on admission. She was started on lactulose and titrated to 2 to 5 bowel movements a day. She was discharged on 10 g oral lactulose t.i.d. The patient also had hyponatremia on admission of 126, that resolved. This was likely secondary to pneumonia. The patient's pressures were elevated in the hospital. She reports she has a history of hypertension. She was started on amlodipine 5 mg p.o. daily. DISPOSITION: Stable. DISCHARGE INSTRUCTIONS: 1. Location: Home. 2. Diet: Heart-healthy. 3. Activity: As tolerated. 4. Follow up and establish care at either [facility] or [facility]. Information was given to be able to call both clinics. Job ID: [id number]
== END 2019-06-08 11:45 | disposition home or self-care (01) | DRG 871 ==
LOC: ERS 17:02 → IMCU/EMU 20:44 → T4-B 06-06 13:18
PROVIDERS: ADMIT Family Medicine; ATTEND Family Medicine
DX: A41.89 Other specified sepsis (principal); J10.08 Influenza due to other identified influenza virus with other specified pneumonia; I21.A1 Myocardial infarction type 2; E87.1 Hypo-osmolality and hyponatremia; E87.2 Acidosis; N39.0 Urinary tract infection, site not specified; F10.19 Alcohol abuse with unspecified alcohol-induced disorder; E87.6 Hypokalemia; F14.10 Cocaine abuse, uncomplicated; B96.20 Unspecified Escherichia coli [E. coli] as the cause of diseases classified elsewhere; A59.01 Trichomonal vulvovaginitis; I10 Essential (primary) hypertension; F31.9 Bipolar disorder, unspecified; Z87.891 Personal history of nicotine dependence; R65.20 Severe sepsis without septic shock; K70.31 Alcoholic cirrhosis of liver with ascites; K70.11 Alcoholic hepatitis with ascites; R79.1 Abnormal coagulation profile; D64.9 Anemia, unspecified; J45.909 Unspecified asthma, uncomplicated; Z88.0 Allergy status to penicillin
CPT/HCPCS: 36415; 71045; 80048; 80053; 80061; 80074; 80306; 80307; 81003; 81015; 82140; 82553; 82728; 82805; 83540; 83550; 83605; 83930; 83935; 84145; 84300; 84466; 84484; 84703; 85025; 85610; 85730; 87040; 87077; 87086; 87149; 87186; 87389; 87804; 93005; 94640; J0456; J0696; J1650; J3370; J3411; J3475; J3490; J7050; J7512; J7611

== ENCOUNTER 2020-10-06 18:13 | Emergency (ER) | payer SELFPAY ==
[2020-10-06 19:04] LABS: #Basophils 0.1 thou/uL (0.0-0.2); #Eosinphils 0.1 thou/uL (0.0-0.7); #Lymphocytes 1.7 thou/uL (1.20-3.40); #Monocytes 0.7 thou/uL (0.11-0.59); #Neutrophils 2.6 thou/uL (1.40-6.50); %Basophils 1.7 % (0.0-1.0); %Eosinophils 2.1 % (0.0-10.0); %Lymphocytes 33.3 % (21.0-51.0); %Monocytes 13.9 % (0.0-10.0); Hemoglobin 9.4 g/dL (12.0-16.0); Mean Corpuscular HGB CONC 31.2 g/dL (32.0-36.0); Mean Corpuscular Hemoglobin 24.7 pg (27.0-31.0); Mean Corpuscular Volume 78.9 fL (78.0-98.0); Mean Platelet Volume 7.1 fL (7.4-10.4); Platelet Count 77 thou/uL (130-400); Red Blood Cell (RBC) Count 3.82 mill/uL (4.20-5.40); White Blood Cell (WBC) Count 5.2 thou/uL (4.8-10.8)
[2020-10-06 19:21] LABS: Anisocytosis SLIGHT = 6-15 cells (100X) (0-5/hpf); Hypochromia SLIGHT = 6-15 cells (100X) (0-5/hpf); MDiff Complete? YES; Platelet Morphology Comment Appears Decreased; Polychromasia SLIGHT = 2-3 cells (100X) (0-2/hpf); Target Cells MODERATE= 6-15 cells (100X) (0-1/hpf)
[2020-10-06 19:26] LABS: ALT (SGPT) 25 U/L (8-55); AST (SGOT) 152 U/L (5-34); Alkaline Phosphatase 224 U/L (40-110); Anion Gap 13 mmol/L (10-20); BUN (Urea Nitrogen) 6 mg/dL (7.0-18.7); Bilirubin, Total 4.3 mg/dL (0.2-1.2); Calc. Creatinine Clearance 0 mL/min (70-130); Calcium 8.4 mg/dL (7.8-10.44); Carbon Dioxide 26 mmol/L (22-29); Chloride 103 mmol/L (98-107); Globulin 5.4 g/dL (2.4-3.5); Glucose 104 mg/dL (70-105); Lipase 86 U/L (8-78); Potassium 3.3 mmol/L (3.5-5.1); Protein, Total 8.4 g/dL (6.0-8.3); Sodium 139 mmol/L (136-145)
== END 2020-10-06 21:34 | disposition home or self-care (01) ==
LOC: ERS 18:13
DX: K74.60 Unspecified cirrhosis of liver (principal); I10 Essential (primary) hypertension; Z87.891 Personal history of nicotine dependence
CPT/HCPCS: 36415; 71045; 80053; 83690; 83880; 85025; 93005

== ENCOUNTER 2020-12-14 04:16 | Emergency (ER) | payer SELFPAY | END 2020-12-14 06:54 | disposition home or self-care (01) | LOC: ERS 04:16 | DX: R60.0 Localized edema (principal); I10 Essential (primary) hypertension; Z87.891 Personal history of nicotine dependence ==

== ENCOUNTER 2021-02-15 19:57 | Emergency (ER) | payer SELFPAY ==
[2021-02-15 20:40] LABS: Hemoglobin 9.9 g/dL (12.0-16.0); Mean Corpuscular HGB CONC 32.5 g/dL (32.0-36.0); Mean Corpuscular Hemoglobin 30.8 pg (27.0-31.0); Mean Corpuscular Volume 94.9 fL (78.0-98.0); Mean Platelet Volume 7.3 fL (7.4-10.4); Platelet Count 65 thou/uL (130-400); RBC Distribution Width 19.7 % (11.5-14.5); Red Blood Cell (RBC) Count 3.21 mill/uL (4.20-5.40); White Blood Cell (WBC) Count 5.3 thou/uL (4.8-10.8)
[2021-02-15 20:45] LABS: BHCG - Serum Negative (NEGATIVE); Pregs Control Background? CLEAR/WHITE (CLR/WHITE); Pregs Control Bar Appear? YES (CONTROL BAR)
[2021-02-15 20:59] LABS: Acetaminophen Less than 6.0 mcg/mL (10.0-30.0); Alcohol 227 mg/dL (Less than 10); Hypochromia SLIGHT = 6-15 cells (100X) (0-5/hpf); Lipase 158 U/L (8-78); Lymphocytes 39 % (21-51); MDiff Complete? YES; Monocytes 11 % (0-10); Neutrophil 50 % (42-75); Platelet Morphology Comment Appears Decreased; Salicylate Less than 8.0 mg/dL (15.0-30.0)
[2021-02-15 21:01] LABS: ALT (SGPT) 36 U/L (8-55); AST (SGOT) 167 U/L (5-34); Albumin 2.7 g/dL (3.5-5.0); Alkaline Phosphatase 227 U/L (40-110); Anion Gap 11 mmol/L (10-20); BUN (Urea Nitrogen) 13 mg/dL (7.0-18.7); Bilirubin, Total 7.6 mg/dL (0.2-1.2); Calc. Creatinine Clearance 0 mL/min (70-130); Calcium 8.3 mg/dL (7.8-10.44); Carbon Dioxide 25 mmol/L (22-29); Chloride 106 mmol/L (98-107); Globulin 5.6 g/dL (2.4-3.5); Glucose 109 mg/dL (70-105); Magnesium 1.5 mg/dL (1.6-2.6); Potassium 3.4 mmol/L (3.5-5.1); Protein, Total 8.3 g/dL (6.0-8.3); Sodium 139 mmol/L (136-145)
[2021-02-15 21:16] LABS: Bacteria/HPF 2+ HPF (None Seen); Bilirubin 2+ (Negative); Blood, Urine 2+ (Negative); Clarity Turbid (Clear); Glucose, Urine (Dipstick) Normal (Negative); Ketone, Urine Negative (Negative); Leukocyte 250 Leu/uL (Negative); Mucous/LPF Rare LPF (<2+); Nitrite Negative (Negative); Protein, Urine (Dipstick) 10 mg/dL (Neg-Trace); Specific Gravity, Urine 1.024 (1.002-1.036); Urobilinogen Greater than 12 mg/dL (Less than 2)
[2021-02-15 21:20] LABS: Amphetamine Not Detected (NotDetected); Barbiturates Screen Not Detected (NotDetected); Benzodiazepine Screen Not Detected (NotDetected); Cocaine Metabolite Screen Detected (NotDetected); Methadone Not Detected (NotDetected); Methamphetamine Not Detected (NotDetected); Opiate Screen Not Detected (NotDetected); Oxycodone Screen Not Detected (NotDetected); Phencyclidine (PCP) Not Detected (NotDetected); THC/Cannabinoid Screen Not Detected (NotDetected); Tricyclic Screen Not Detected (NotDetected)
[2021-02-15 23:47] LABS: Lactic Acid 2.2 mmol/L (0.5-2.2)
[2021-02-16] MEDS ORDERED: Lorazepam 2 MG/ML VIAL ONE (04:23)
== END 2021-02-16 11:06 | disposition home or self-care (01) ==
LOC: ERS 19:57
DX: F10.129 Alcohol abuse with intoxication, unspecified (principal); I10 Essential (primary) hypertension; N19 Unspecified kidney failure; Y90.4 Blood alcohol level of 80-99 mg/100 ml; Z87.891 Personal history of nicotine dependence
CPT/HCPCS: 36415; 80053; 80306; 80307; 81003; 81015; 83605; 83690; 83735; 84703; 85025; 93005; 96374; J2060

== ENCOUNTER 2021-04-01 17:50 | Emergency (ER) | payer SELFPAY | END 2021-04-01 18:41 | disposition home or self-care (01) | LOC: ERS 17:50 | DX: F10.129 Alcohol abuse with intoxication, unspecified (principal); I12.9 Hypertensive chronic kidney disease with stage 1 through stage 4 chronic kidney disease, or unspecified chronic kidney disease; N18.9 Chronic kidney disease, unspecified; Z87.891 Personal history of nicotine dependence | CPT/HCPCS: 99284 ==

== ENCOUNTER 2021-04-05 14:32 | Emergency (ER) | payer SELFPAY ==
[2021-04-05 15:45] LABS: Mean Corpuscular HGB CONC 32.4 g/dL (32.0-36.0); Mean Corpuscular Hemoglobin 29.4 pg (27.0-31.0); Mean Corpuscular Volume 90.6 fL (78.0-98.0); Mean Platelet Volume 11.6 fL (7.4-10.4); Platelet Count 89 thou/uL (130-400); RBC Distribution Width 17.9 % (11.5-14.5); Red Blood Cell (RBC) Count 3.74 mill/uL (4.20-5.40); White Blood Cell (WBC) Count 5.7 thou/uL (4.8-10.8)
[2021-04-05 16:05] LABS: ALT (SGPT) 20 U/L (8-55); AST (SGOT) 65 U/L (5-34); Albumin 2.7 g/dL (3.5-5.0); Alkaline Phosphatase 149 U/L (40-110); Anion Gap 11 mmol/L (10-20); BUN (Urea Nitrogen) 6 mg/dL (7.0-18.7); Bilirubin, Total 5.3 mg/dL (0.2-1.2); Calc. Creatinine Clearance 0 mL/min (70-130); Calcium 8.6 mg/dL (7.8-10.44); Carbon Dioxide 20 mmol/L (22-29); Chloride 108 mmol/L (98-107); Globulin 5.4 g/dL (2.4-3.5); Glucose 157 mg/dL (70-105); Lipase 104 U/L (8-78); Magnesium 1.7 mg/dL (1.6-2.6); Potassium 3.1 mmol/L (3.5-5.1); Protein, Total 8.1 g/dL (6.0-8.3); Sodium 136 mmol/L (136-145)
[2021-04-05 16:15] LABS: Band 1 % (5-11); Eosinophils 1 % (0-10); Large Platelets SLIGHT; Lymphocytes 44 % (21-51); MDiff Complete? YES; Monocytes 14 % (0-10); Neutrophil 35 % (42-75); Platelet Morphology Comment Appears Decreased; Reactive Lymphocytes 5 % (0-10); Target Cells MODERATE= 6-15 cells (100X) (0-1/hpf)
[2021-04-05 16:26] LABS: Bilirubin Negative (Negative); Blood, Urine Negative (Negative); Clarity Clear (Clear); Glucose, Urine (Dipstick) 300 mg/dL (Negative); Ketone, Urine Negative (Negative); Leukocyte Negative Leu/uL (Negative); Nitrite Negative (Negative); Protein, Urine (Dipstick) Negative (Neg-Trace); Specific Gravity, Urine 1.007 (1.002-1.036); Urobilinogen Normal mg/dL (Less than 2)
[2021-04-05 16:30] LABS: Amphetamine Not Detected (NotDetected); Barbiturates Screen Not Detected (NotDetected); Benzodiazepine Screen Not Detected (NotDetected); Cocaine Metabolite Screen Not Detected (NotDetected); Methadone Not Detected (NotDetected); Methamphetamine Not Detected (NotDetected); Opiate Screen Not Detected (NotDetected); Oxycodone Screen Not Detected (NotDetected); Phencyclidine (PCP) Not Detected (NotDetected); THC/Cannabinoid Screen Not Detected (NotDetected); Tricyclic Screen Not Detected (NotDetected)
[2021-04-05] MEDS ORDERED: Aspirin 325 MG TAB ONE (16:34)
[2021-04-05] MEDS ORDERED: Potassium Chloride 20 MEQ TAB ONE (16:34)
[2021-04-05] MEDS ORDERED: NS 0.9% w/ 20 MEQ KCL 1,000 ML IV SCH (17:00)
[2021-04-05 17:18] LABS: Troponin I 0.047 ng/mL (< 0.028)
== END 2021-04-05 18:45 | disposition home or self-care (01) ==
LOC: ERS 14:32
DX: S00.531A Contusion of lip, initial encounter (principal); F10.129 Alcohol abuse with intoxication, unspecified; I12.9 Hypertensive chronic kidney disease with stage 1 through stage 4 chronic kidney disease, or unspecified chronic kidney disease; N18.9 Chronic kidney disease, unspecified; X58.XXXA Exposure to other specified factors, initial encounter; Z87.891 Personal history of nicotine dependence
CPT/HCPCS: 36415; 70450; 70486; 71045; 72125; 80053; 80306; 81003; 82553; 83690; 83735; 84484; 85025; 93005; 96365; J3480

== ENCOUNTER 2021-05-04 07:19 | Emergency (ER) | payer SELFPAY ==
[2021-05-04] MEDS ORDERED: Ondansetron PF 4 MG/2 ML Vial ONE (08:05)
[2021-05-04 08:09] LABS: #Basophils 0.1 thou/uL (0.0-0.2); #Eosinphils 0.2 thou/uL (0.0-0.7); #Lymphocytes 1.7 thou/uL (1.20-3.40); #Monocytes 0.8 thou/uL (0.11-0.59); #Neutrophils 3.1 thou/uL (1.40-6.50); %Eosinophils 3.7 % (0.0-10.0); %Lymphocytes 29.6 % (21.0-51.0); %Monocytes 13.6 % (0.0-10.0); %Neutrophils 52.1 % (42.0-75.0); Hemoglobin 11.1 g/dL (12.0-16.0); Mean Corpuscular HGB CONC 31.4 g/dL (32.0-36.0); Mean Corpuscular Hemoglobin 27.5 pg (27.0-31.0); Mean Corpuscular Volume 87.4 fL (78.0-98.0); Mean Platelet Volume 7.2 fL (7.4-10.4); Platelet Count 102 thou/uL (130-400); RBC Distribution Width 18.9 % (11.5-14.5); Red Blood Cell (RBC) Count 4.02 mill/uL (4.20-5.40); White Blood Cell (WBC) Count 5.9 thou/uL (4.8-10.8)
[2021-05-04 08:15] LABS: INR-International Normal Ratio 1.6; Prothrombin Time 19.7 sec (12.0-14.7)
[2021-05-04 08:43] LABS: ALT (SGPT) 23 U/L (8-55); AST (SGOT) 71 U/L (5-34); Acetaminophen Less than 6.0 mcg/mL (10.0-30.0); Albumin 2.8 g/dL (3.5-5.0); Alcohol Less than 10 mg/dL (Less than 10); Alkaline Phosphatase 221 U/L (40-110); Anion Gap 12 mmol/L (10-20); BUN (Urea Nitrogen) 7 mg/dL (7.0-18.7); Bilirubin, Total 4.9 mg/dL (0.2-1.2); Calc. Creatinine Clearance 0 mL/min (70-130); Calcium 9.2 mg/dL (7.8-10.44); Carbon Dioxide 22 mmol/L (22-29); Chloride 106 mmol/L (98-107); Globulin 5.5 g/dL (2.4-3.5); Glucose 116 mg/dL (70-105); Lipase 128 U/L (8-78); Potassium 4.2 mmol/L (3.5-5.1); Protein, Total 8.3 g/dL (6.0-8.3); Salicylate Less than 8.0 mg/dL (15.0-30.0); Sodium 136 mmol/L (136-145)
[2021-05-04 09:01] LABS: CKMB 3.4 ng/mL (0-6.6)
== END 2021-05-04 14:43 | disposition home or self-care (01) ==
LOC: ERS 07:19
DX: R11.2 Nausea with vomiting, unspecified (principal); I10 Essential (primary) hypertension; N19 Unspecified kidney failure; Z87.891 Personal history of nicotine dependence
CPT/HCPCS: 71045; 80053; 80307; 82553; 83690; 84484; 85025; 85610; 93005; 96374; J2405

== ENCOUNTER 2021-05-17 02:39 | Observation (INO) | payer SELFPAY ==
[2021-05-17 04:00] LABS: #Basophils 0.1 thou/uL (0.0-0.2); #Eosinphils 0.1 thou/uL (0.0-0.7); #Lymphocytes 1.5 thou/uL (1.20-3.40); #Monocytes 0.7 thou/uL (0.11-0.59); #Neutrophils 3.1 thou/uL (1.40-6.50); %Basophils 1.9 % (0.0-1.0); %Eosinophils 2.1 % (0.0-10.0); %Lymphocytes 26.6 % (21.0-51.0); %Monocytes 12.7 % (0.0-10.0); %Neutrophils 56.8 % (42.0-75.0); Anisocytosis MODERATE=16-30 cells (100X) (0-5/hpf); Hemoglobin 10.1 g/dL (12.0-16.0); MDiff Complete? YES; Mean Corpuscular HGB CONC 32.3 g/dL (32.0-36.0); Mean Corpuscular Volume 86.7 fL (78.0-98.0); Mean Platelet Volume 13.1 fL (7.4-10.4); Platelet Count 75 thou/uL (130-400); Platelet Morphology Comment Appears Decreased; RBC Distribution Width 23.5 % (11.5-14.5); Target Cells SLIGHT = 2-5 cells (100X) (0-1/hpf); White Blood Cell (WBC) Count 5.5 thou/uL (4.8-10.8)
[2021-05-17 04:18] LABS: Albumin 2.6 g/dL (3.5-5.0)
[2021-05-17 04:20] LABS: Calcium 9.1 mg/dL (7.8-10.44); Chloride 108 mmol/L (98-107); Potassium 3.5 mmol/L (3.5-5.1); Sodium 140 mmol/L (136-145)
[2021-05-17] MEDS ORDERED: Ketamine 50 MG/ML (10ML VIAL) ONE (04:20)
[2021-05-17 04:21] LABS: Glucose 122 mg/dL (70-105); Protein, Total 7.6 g/dL (6.0-8.3)
[2021-05-17 04:22] LABS: Anion Gap 11 mmol/L (10-20); Carbon Dioxide 25 mmol/L (22-29)
[2021-05-17 04:23] LABS: Bilirubin, Total 4.9 mg/dL (0.2-1.2)
[2021-05-17 04:24] LABS: Alkaline Phosphatase 237 U/L (40-110); Calc. Creatinine Clearance 0 mL/min (70-130)
[2021-05-17 04:25] LABS: BUN (Urea Nitrogen) 9 mg/dL (7.0-18.7)
[2021-05-17 04:26] LABS: AST (SGOT) 80 U/L (5-34)
[2021-05-17 04:27] LABS: ALT (SGPT) 27 U/L (8-55)
[2021-05-17 04:28] LABS: Bacteria/HPF None Seen HPF (None Seen); Bilirubin Negative (Negative); Blood, Urine 1+ (Negative); Clarity Clear (Clear); Glucose, Urine (Dipstick) Normal (Negative); Ketone, Urine Negative (Negative); Leukocyte Negative Leu/uL (Negative); Nitrite Negative (Negative); Protein, Urine (Dipstick) 10 mg/dL (Neg-Trace); RBC/HPF 21-50 HPF (0-3); Specific Gravity, Urine 1.023 (1.002-1.036); Squamous Epithelial 0-3 HPF (0-3); Urobilinogen 6 mg/dL (Less than 2); WBC/HPF 0-3 HPF (0-3); pH, Urine 6.5 (5.0-9.0)
[2021-05-17 04:35] LABS: Amphetamine Not Detected (NotDetected); Barbiturates Screen Not Detected (NotDetected); Benzodiazepine Screen Not Detected (NotDetected); Cocaine Metabolite Screen Detected (NotDetected); Methadone Not Detected (NotDetected); Methamphetamine Not Detected (NotDetected); Opiate Screen Not Detected (NotDetected); Oxycodone Screen Not Detected (NotDetected); Phencyclidine (PCP) Not Detected (NotDetected); THC/Cannabinoid Screen Not Detected (NotDetected); Tricyclic Screen Not Detected (NotDetected)
[2021-05-17 05:14] LABS: Alcohol 17 mg/dL (Less than 10)
[2021-05-17 05:17] LABS: Salicylate Less than 8.0 mg/dL (15.0-30.0)
[2021-05-17] MEDS ORDERED: Dextrose 5 % And 0.9 % NaCl 1,000 ML IV SCH (06:00)
[2021-05-17] MEDS ORDERED: Clindamycin/D5W 600 mg/50 ml Premix Bag ONE (07:56)
[2021-05-17] MEDS ORDERED: Bacitracin 1 PK ONE (08:19)
[2021-05-17 09:55] VITALS: BMI 26.9
[2021-05-17] MEDS ORDERED: Ondansetron PF 4 MG/2 ML Vial IVP PRN (11:22)
[2021-05-17] MEDS ORDERED: HYDROcodone/Acetaminophen 5/325 mg Tablet PO PRN (11:22)
[2021-05-17] MEDS ORDERED: Senokot S 8.6-50 MG TAB PO PRN (11:22)
[2021-05-17] MEDS ORDERED: Multivitamins, Adult 10 ML, Folic Acid 1 MG, Thiamine HCl 100 MG in Dextrose 5 %-0.45 %... IV SCH (12:15)
[2021-05-17] MEDS ORDERED: Lorazepam 1 MG TAB PO PRN (12:16)
[2021-05-17] MEDS: Folic Acid 1 MG, Multivitamins, Adult 10 ML in Dextrose 5 %-0.45 % NaCl 1,000 ML IV SCH (13:48)
[2021-05-17] MEDS: Sodium Chloride 0.9% 1,000 ML IV SCH ×2 (13:55→15:44)
[2021-05-17] MEDS ORDERED: FLU VACC QS2021-22(6MOS UP)/PF 60 MCG/0.5 ML SYRINGE IM ONE (14:15)
[2021-05-17] MEDS: Thiamine HCl 200 MG/2 ML VIAL SLOW IVP SCH (15:43)
[2021-05-17] MEDS: Clindamycin/D5W 600 MG in Premix Bag 1 BAG IVPB SCH ×2 (15:43→21:45)
[2021-05-18] MEDS: Sodium Chloride 0.9% 1,000 ML IV SCH ×3 (00:59→17:42)
[2021-05-18 05:37] LABS: Hemoglobin 9.1 g/dL (12.0-16.0); Mean Corpuscular Volume 87.5 fL (78.0-98.0); Mean Platelet Volume 10.7 fL (7.4-10.4); Platelet Count 87 thou/uL (130-400); RBC Distribution Width 21.1 % (11.5-14.5); Red Blood Cell (RBC) Count 3.23 mill/uL (4.20-5.40); White Blood Cell (WBC) Count 4.3 thou/uL (4.8-10.8)
[2021-05-18 05:52] LABS: Anion Gap 6 mmol/L (10-20); BUN (Urea Nitrogen) 7 mg/dL (7.0-18.7); Calc. Creatinine Clearance 116 mL/min (70-130); Calcium 7.9 mg/dL (7.8-10.44); Carbon Dioxide 27 mmol/L (22-29); Chloride 106 mmol/L (98-107); Glucose 125 mg/dL (70-105); Sodium 136 mmol/L (136-145)
[2021-05-18] MEDS: Clindamycin/D5W 600 MG in Premix Bag 1 BAG IVPB SCH ×3 (05:52→21:34)
[2021-05-18 05:56] LABS: ALT (SGPT) 20 U/L (8-55); AST (SGOT) 60 U/L (5-34); Albumin 2.1 g/dL (3.5-5.0); Alkaline Phosphatase 159 U/L (40-110); Protein, Total 6.4 g/dL (6.0-8.3)
[2021-05-18 06:10] LABS: Eosinophils 3 % (0-10); Lymphocytes 46 % (21-51); MDiff Complete? YES; Monocytes 14 % (0-10); Neutrophil 36 % (42-75); Platelet Morphology Comment Appears Decreased; Reactive Lymphocytes 1 % (0-10); Target Cells SLIGHT = 2-5 cells (100X) (0-1/hpf)
[2021-05-18 06:14] LABS: Potassium 2.9 mmol/L (3.5-5.1)
[2021-05-18] MEDS ORDERED: Electrolyte Replacement Protocol 1 EACH FS PRN (06:25)
[2021-05-18] MEDS: Enoxaparin Sodium 40 MG/0.4 ML SYRINGE SC SCH (09:07)
[2021-05-18] MEDS: Potassium Chloride 20 MEQ TAB PO SCH ×2 (10:46→14:54)
[2021-05-18] MEDS: Folic Acid 1 MG, Multivitamins, Adult 10 ML in Dextrose 5 %-0.45 % NaCl 1,000 ML IV SCH (17:02)
[2021-05-18] MEDS: Thiamine HCl 200 MG/2 ML VIAL SLOW IVP SCH (17:03)
[2021-05-18 18:30] LABS: Potassium 3.6 mmol/L (3.5-5.1)
[2021-05-19] MEDS: Sodium Chloride 0.9% 1,000 ML IV SCH ×2 (04:27→05:53)
[2021-05-19] MEDS: Clindamycin/D5W 600 MG in Premix Bag 1 BAG IVPB SCH ×2 (05:53→13:06)
[2021-05-19 06:41] LABS: Anion Gap 10 mmol/L (10-20); BUN (Urea Nitrogen) 7 mg/dL (7.0-18.7); Calc. Creatinine Clearance 124 mL/min (70-130); Calcium 8.1 mg/dL (7.8-10.44); Carbon Dioxide 22 mmol/L (22-29); Chloride 107 mmol/L (98-107); Glucose 116 mg/dL (70-105); Potassium 3.7 mmol/L (3.5-5.1); Sodium 135 mmol/L (136-145)
[2021-05-19 06:42] LABS: Hemoglobin 8.9 g/dL (12.0-16.0); Mean Corpuscular HGB CONC 32.4 g/dL (32.0-36.0); Mean Corpuscular Hemoglobin 28.1 pg (27.0-31.0); Mean Corpuscular Volume 86.7 fL (78.0-98.0); Mean Platelet Volume 11.9 fL (7.4-10.4); Platelet Count 89 thou/uL (130-400); Red Blood Cell (RBC) Count 3.17 mill/uL (4.20-5.40); White Blood Cell (WBC) Count 4.9 thou/uL (4.8-10.8)
[2021-05-19] MEDS: Enoxaparin Sodium 40 MG/0.4 ML SYRINGE SC SCH (09:54)
[2021-05-19 10:17] LABS: Eosinophils 5 % (0-10); Hypochromia MODERATE=16-30 cells (100X) (0-5/hpf); Lymphocytes 34 % (21-51); MDiff Complete? YES; Monocytes 22 % (0-10); Neutrophil 39 % (42-75); Platelet Morphology Comment Appears Decreased; Polychromasia SLIGHT = 2-3 cells (100X) (0-2/hpf); Target Cells SLIGHT = 2-5 cells (100X) (0-1/hpf)
[2021-05-19 12:06] LABS: ALT (SGPT) 19 U/L (8-55); AST (SGOT) 58 U/L (5-34); Albumin 2.2 g/dL (3.5-5.0); Alkaline Phosphatase 166 U/L (40-110); Bilirubin, Direct 2.9 mg/dL (0.1-0.3); Bilirubin, Total 4.2 mg/dL (0.2-1.2); Protein, Total 6.7 g/dL (6.0-8.3)
[2021-05-19 15:57] VITALS: BP 139/86; TEMP 98.2
[2021-05-19] MEDS: Folic Acid 1 MG, Multivitamins, Adult 10 ML in Dextrose 5 %-0.45 % NaCl 1,000 ML IV SCH (17:07)
[2021-05-19] MEDS: Thiamine HCl 200 MG/2 ML VIAL SLOW IVP SCH (17:09)
== END 2021-05-19 16:26 | disposition home or self-care (01) ==
LOC: ERS 02:39 → NEURO 06:28
PROVIDERS: ADMIT Internal Medicine Geriatric Medicine; ATTEND Internal Medicine
DX: F14.10 Cocaine abuse, uncomplicated (principal); F10.20 Alcohol dependence, uncomplicated; S61.204A Unspecified open wound of right ring finger without damage to nail, initial encounter; L03.011 Cellulitis of right finger; I96 Gangrene, not elsewhere classified; E87.6 Hypokalemia; I12.9 Hypertensive chronic kidney disease with stage 1 through stage 4 chronic kidney disease, or unspecified chronic kidney disease; N18.9 Chronic kidney disease, unspecified; R79.89 Other specified abnormal findings of blood chemistry; Z88.0 Allergy status to penicillin; Z91.018 Allergy to other foods; Z79.899 Other long term (current) drug therapy; Z87.891 Personal history of nicotine dependence; X58.XXXA Exposure to other specified factors, initial encounter; Y90.0 Blood alcohol level of less than 20 mg/100 ml
CPT/HCPCS: 36415; 51701; 70450; 76705; 80048; 80053; 80076; 80306; 80307; 81003; 81015; 82140; 85007; 85025; 85027; 90471; 90686; 93005; 96365; 96366; 96367; 96372; 96375; 96376; G0008; G0378; J0744; J1650; J3411; J3490; J7042; J7050

== ENCOUNTER 2021-07-29 14:25 | Inpatient (IN) | payer SELFPAY ==
[2021-07-29 15:10] LABS: Analyzer IN Cardio ER; Base Excess -10.7 mEq/L (-2.0 to +3.0); Calcium, Ionized (venous) 1.07 mmol/L (1.16-1.32); Chloride (VBG) 103 mmol/L (98-106); Hemoglobin (Hb) 10.9 g/dL (11.7-16.0); Potassium (VBG) 3.78 mmol/L (3.70-5.30); Sodium 134.9 mmol/L (133-146); pH (venous) 7.35 (7.32-7.43)
[2021-07-29 15:11] LABS: Actual Bicarbonate (HCO3v) 13 mEq/L (22-28)
[2021-07-29 15:17] LABS: #Lymphocytes 0.8 thou/uL (1.20-3.40); #Monocytes 1.9 thou/uL (0.11-0.59); %Basophils 0.2 % (0.0-1.0); %Lymphocytes 6.4 % (21.0-51.0); %Monocytes 14.6 % (0.0-10.0); %Neutrophils 78.9 % (42.0-75.0); Hemoglobin 10.1 g/dL (12.0-16.0); Mean Corpuscular HGB CONC 30.9 g/dL (32.0-36.0); Mean Corpuscular Hemoglobin 26.9 pg (27.0-31.0); Mean Corpuscular Volume 86.9 fL (78.0-98.0); Mean Platelet Volume 7.4 fL (7.4-10.4); Platelet Count 74 thou/uL (130-400); RBC Distribution Width 21.2 % (11.5-14.5); Red Blood Cell (RBC) Count 3.77 mill/uL (4.20-5.40); White Blood Cell (WBC) Count 12.7 thou/uL (4.8-10.8)
[2021-07-29 15:27] LABS: BHCG - Serum Negative (NEGATIVE); Pregs Control Background? CLEAR/WHITE (CLR/WHITE); Pregs Control Bar Appear? YES (CONTROL BAR)
[2021-07-29 15:46] LABS: Acetaminophen Less than 6.0 mcg/mL (10.0-30.0); Alcohol Less than 10 mg/dL (Less than 10); CK (CPK) 1997 U/L (29-168); Magnesium 1.5 mg/dL (1.6-2.6); Salicylate Less than 8.0 mg/dL (15.0-30.0)
[2021-07-29 15:47] LABS: ALT (SGPT) 28 U/L (8-55); AST (SGOT) 123 U/L (5-34); Albumin 2.5 g/dL (3.5-5.0); Alkaline Phosphatase 165 U/L (40-110); Anion Gap 20 mmol/L (10-20); BUN (Urea Nitrogen) 16 mg/dL (7.0-18.7); Bilirubin, Total 7.3 mg/dL (0.2-1.2); Calc. Creatinine Clearance 0 mL/min (70-130); Calcium 8.7 mg/dL (7.8-10.44); Carbon Dioxide 16 mmol/L (22-29); Chloride 102 mmol/L (98-107); Globulin 5.4 g/dL (2.4-3.5); Glucose 135 mg/dL (70-105); Potassium 3.8 mmol/L (3.5-5.1); Protein, Total 7.9 g/dL (6.0-8.3); Sodium 134 mmol/L (136-145)
[2021-07-29 16:00] LABS: CKMB 6.2 ng/mL (0-6.6)
[2021-07-29] MEDS ORDERED: Levofloxacin 500 mg/D5W 100 ml Premix Bag ONE (16:33)
[2021-07-29 16:35] LABS: Bilirubin Small (Negative); Blood, Urine Moderate (Negative); Glucose, Urine (Dipstick) Negative (Negative); Ketone, Urine Trace mg/dL (Negative); Leukocyte Moderate (Negative); Nitrite Negative (Negative); Protein, Urine (Dipstick) > or equal to 300 mg/dL (Neg-Trace); pH, Urine 6.5 (5.0-9.0)
[2021-07-29 16:38] LABS: Clarity Turbid (Clear)
[2021-07-29 16:42] LABS: Amphetamine Detected (NotDetected); Barbiturates Screen Not Detected (NotDetected); Benzodiazepine Screen Not Detected (NotDetected); Cocaine Metabolite Screen Not Detected (NotDetected); Methadone Not Detected (NotDetected); Methamphetamine Not Detected (NotDetected); Opiate Screen Not Detected (NotDetected); Oxycodone Screen Not Detected (NotDetected); Phencyclidine (PCP) Not Detected (NotDetected); THC/Cannabinoid Screen Not Detected (NotDetected); Tricyclic Screen Not Detected (NotDetected)
[2021-07-29 16:54] LABS: WBC/HPF Greater than 50 HPF (0-3)
[2021-07-29 16:55] LABS: Bacteria/HPF 4+ HPF (None Seen); Renal Epithelial 0-3 HPF (None Seen); Squamous Epithelial 21-50 HPF (0-3); Trichomonas/HPF 3+ HPF (None Seen)
[2021-07-29] MEDS ORDERED: Magnesium 2 GM/50 ML BAG (IN WATER) ONE (17:42)
[2021-07-29] MEDS ORDERED: Lorazepam 2 MG/ML VIAL ONE ×2 (18:12→20:21)
[2021-07-29] MEDS ORDERED: Lorazepam 2 MG/ML VIAL SLOW IVP SCH ×2 (18:15→22:00)
[2021-07-29 18:34] LABS: Hemoglobin A1c 5.6 % (4.0-6.0)
[2021-07-29 18:45] LABS: Troponin I 0.151 ng/mL (< 0.028)
[2021-07-29 18:49] LABS: Lactic Acid 5.6 mmol/L (0.5-2.2)
[2021-07-29] MEDS: Lactated Ringer's 1,000 ML IV SCH (20:35)
[2021-07-29 20:40] LABS: SARS-CoV-2 NAA Rapid Test Not Detected (NotDetected)
[2021-07-29] MEDS ORDERED: Acetaminophen 650 MG Suppository ONE (20:45)
[2021-07-29] MEDS ORDERED: Ketorolac Tromethamine 30 MG/ML VIAL ONE (20:55)
[2021-07-29] MEDS ORDERED: Acetaminophen 650 MG Suppository PR PRN (21:53)
[2021-07-29] MEDS ORDERED: cefTRIAXone\\ROCEPHIN 1 GM in Sodium Chloride 0.9% 100 ML IVPB SCH (22:00)
[2021-07-29 22:02] LABS: Troponin I 0.179 ng/mL (< 0.028)
[2021-07-30] MEDS: Lactated Ringer's 1,000 ML IV SCH ×3 (03:06→20:36)
[2021-07-30] MEDS ORDERED: FLU VACC QS2021-22(6MOS UP)/PF 60 MCG/0.5 ML SYRINGE IM ONE (09:00)
[2021-07-30] MEDS: Enoxaparin Sodium 40 MG/0.4 ML SYRINGE SC SCH (09:13)
[2021-07-30] MEDS: metroNIDAZOLE 500 MG in Premix Bag 1 BAG IVPB SCH ×2 (09:15→20:36)
[2021-07-30] MEDS: Multivitamin W/ Minerals 1 TAB PO SCH (10:25)
[2021-07-30 12:50] LABS: Hemoglobin 9.4 g/dL (12.0-16.0); Mean Corpuscular HGB CONC 30.5 g/dL (32.0-36.0); Mean Corpuscular Hemoglobin 27.1 pg (27.0-31.0); Mean Corpuscular Volume 88.9 fL (78.0-98.0); Mean Platelet Volume 8.5 fL (7.4-10.4); Platelet Count 64 thou/uL (130-400); RBC Distribution Width 21.5 % (11.5-14.5); Red Blood Cell (RBC) Count 3.48 mill/uL (4.20-5.40); White Blood Cell (WBC) Count 15.7 thou/uL (4.8-10.8)
[2021-07-30 13:11] LABS: Lactic Acid 2.7 mmol/L (0.5-2.2)
[2021-07-30 13:28] LABS: ALT (SGPT) 29 U/L (8-55); AST (SGOT) 159 U/L (5-34); Alkaline Phosphatase 108 U/L (40-110); Anion Gap 12 mmol/L (10-20); Anisocytosis SLIGHT = 6-15 cells (100X) (0-5/hpf); BUN (Urea Nitrogen) 21 mg/dL (7.0-18.7); Band 21 % (5-11); Bilirubin, Total 6.3 mg/dL (0.2-1.2); CK (CPK) 2286 U/L (29-168); Calc. Creatinine Clearance 113 mL/min (70-130); Calcium 7.9 mg/dL (7.8-10.44); Carbon Dioxide 22 mmol/L (22-29); Chloride 107 mmol/L (98-107); Globulin 4.2 g/dL (2.4-3.5); Glucose 146 mg/dL (70-105); Hypochromia SLIGHT = 6-15 cells (100X) (0-5/hpf); Lymphocytes 6 % (21-51); MDiff Complete? YES; Monocytes 16 % (0-10); Neutrophil 55 % (42-75); Ovalocytes SLIGHT = 2-5 cells (100X) (0-1/hpf); Phosphorus 2.4 mg/dL (2.3-4.7); Platelet Morphology Comment Appears Decreased; Polychromasia SLIGHT = 2-3 cells (100X) (0-2/hpf); Protein, Total 6.2 g/dL (6.0-8.3); Reactive Lymphocytes 2 % (0-10); Sodium 137 mmol/L (136-145); Target Cells MODERATE= 6-15 cells (100X) (0-1/hpf)
[2021-07-30 15:28] LABS: Ref Lab Test Ordered VOLATILES BLOOD; Reference Lab Name LABCORP
[2021-07-30 15:53] LABS: Ref Lab Test Ordered VOLITILES UR; Reference Lab Name LABCORP
[2021-07-30] MEDS: Acetaminophen 325 MG TAB PO PRN (20:35)
[2021-07-30] MEDS: cefTRIAXone\\ROCEPHIN 2 GM in Sodium Chloride 0.9% 100 ML IVPB SCH (21:55)
[2021-07-30] MEDS ORDERED: cefTRIAXone\\ROCEPHIN 2 GM in Sodium Chloride 0.9% 100 ML IVPB SCH (22:00)
[2021-07-31] MEDS: Lactated Ringer's 1,000 ML IV SCH (05:18)
[2021-07-31 07:21] LABS: Hemoglobin 8.8 g/dL (12.0-16.0); Mean Corpuscular HGB CONC 29.4 g/dL (32.0-36.0); Mean Corpuscular Hemoglobin 26.5 pg (27.0-31.0); Mean Corpuscular Volume 90.2 fL (78.0-98.0); Mean Platelet Volume 7.3 fL (7.4-10.4); Platelet Count 77 thou/uL (130-400); RBC Distribution Width 22.3 % (11.5-14.5); Red Blood Cell (RBC) Count 3.33 mill/uL (4.20-5.40); White Blood Cell (WBC) Count 14.9 thou/uL (4.8-10.8)
[2021-07-31 07:39] LABS: ALT (SGPT) 41 U/L (8-55); AST (SGOT) 205 U/L (5-34); Albumin 2.1 g/dL (3.5-5.0); Alkaline Phosphatase 103 U/L (40-110); Anion Gap 6 mmol/L (10-20); BUN (Urea Nitrogen) 16 mg/dL (7.0-18.7); Bilirubin, Total 5.7 mg/dL (0.2-1.2); Calc. Creatinine Clearance 123 mL/min (70-130); Calcium 8.1 mg/dL (7.8-10.44); Carbon Dioxide 27 mmol/L (22-29); Chloride 103 mmol/L (98-107); Globulin 4.5 g/dL (2.4-3.5); Glucose 173 mg/dL (70-105); Potassium 4.1 mmol/L (3.5-5.1); Protein, Total 6.6 g/dL (6.0-8.3); Sodium 132 mmol/L (136-145)
[2021-07-31 08:12] LABS: Band 17 % (5-11); Hypochromia SLIGHT = 6-15 cells (100X) (0-5/hpf); Lymphocytes 6 % (21-51); MDiff Complete? YES; Monocytes 18 % (0-10); Neutrophil 59 % (42-75); Platelet Morphology Comment Appears Decreased; Polychromasia SLIGHT = 2-3 cells (100X) (0-2/hpf)
[2021-07-31] MEDS: Enoxaparin Sodium 40 MG/0.4 ML SYRINGE SC SCH ×2 (08:15→11:02)
[2021-07-31] MEDS: metroNIDAZOLE 500 MG TAB PO SCH ×3 (08:15→21:27)
[2021-07-31] MEDS: Multivitamin W/ Minerals 1 TAB PO SCH (08:15)
[2021-07-31 14:26] LABS: HBCM Index 0.08 S/CO (0-0.79); HIV (1/2) Antibody/Antigen Non-Reactive (NonReactive); HIV 1/2 INDEX 0.19 S/CO (<1.00); Hep A IgM AB Non-Reactive (NonReactive); Hep A IgM S/CO 0.21 S/CO (0-0.79); Hep B Surf Ag Non-Reactive S/CO (NonReactive); Hep C IgG Ab Non-Reactive (NonReactive); Hep C Index 0.13 S/CO (0-0.79); Hepatitis B Core IgM Abs Non-Reactive (NonReactive)
[2021-07-31 19:57] LABS: Syphilis Antibody Index 11.52 S/CO (<1.00 Non-Reactive)
[2021-07-31 19:59] LABS: Syphilis Antibody INDETERMINATE (Nonreactive)
[2021-07-31] MEDS ORDERED: Sodium Chloride 0.9% 1,000 ML IV SCH (21:15)
[2021-07-31] MEDS: Acetaminophen 325 MG TAB PO PRN (21:26)
[2021-07-31] MEDS: cefTRIAXone\\ROCEPHIN 2 GM in Sodium Chloride 0.9% 100 ML IVPB SCH (21:27)
[2021-07-31 22:14] LABS: Troponin I 0.137 ng/mL (< 0.028)
[2021-08-01 05:03] LABS: ALT (SGPT) 38 U/L (8-55); AST (SGOT) 171 U/L (5-34); Alkaline Phosphatase 109 U/L (40-110); Anion Gap 10 mmol/L (10-20); BUN (Urea Nitrogen) 11 mg/dL (7.0-18.7); Bilirubin, Total 5.7 mg/dL (0.2-1.2); Calc. Creatinine Clearance 129 mL/min (70-130); Calcium 7.7 mg/dL (7.8-10.44); Carbon Dioxide 23 mmol/L (22-29); Chloride 103 mmol/L (98-107); Globulin 4.3 g/dL (2.4-3.5); Glucose 94 mg/dL (70-105); Potassium 3.6 mmol/L (3.5-5.1); Protein, Total 6.3 g/dL (6.0-8.3); Sodium 132 mmol/L (136-145)
[2021-08-01 05:09] LABS: Band 5 % (5-11); Eosinophils 3 % (0-10); Hemoglobin 8.1 g/dL (12.0-16.0); Hypochromia SLIGHT = 6-15 cells (100X) (0-5/hpf); Lymphocytes 7 % (21-51); MDiff Complete? YES; Mean Corpuscular HGB CONC 30.9 g/dL (32.0-36.0); Mean Corpuscular Hemoglobin 27.2 pg (27.0-31.0); Mean Platelet Volume 6.3 fL (7.4-10.4); Monocytes 22 % (0-10); Neutrophil 63 % (42-75); Platelet Count 85 thou/uL (130-400); Platelet Morphology Comment Appears Decreased; RBC Distribution Width 21.6 % (11.5-14.5); Red Blood Cell (RBC) Count 2.97 mill/uL (4.20-5.40); Target Cells SLIGHT = 2-5 cells (100X) (0-1/hpf); White Blood Cell (WBC) Count 14.2 thou/uL (4.8-10.8)
[2021-08-01] MEDS: metroNIDAZOLE 500 MG TAB PO SCH ×2 (08:20→21:23)
[2021-08-01] MEDS: Multivitamin W/ Minerals 1 TAB PO SCH (08:21)
[2021-08-01] MEDS: Enoxaparin Sodium 40 MG/0.4 ML SYRINGE SC SCH ×2 (08:21→08:22)
[2021-08-01 09:00] VITALS: BMI 31.7
[2021-08-01] MEDS ORDERED: Esmolol 100 MG/10 ML VIAL ONE (10:09)
[2021-08-01] MEDS ORDERED: GLYCOPYRROLATE/PF 0.2 MG/ML VIAL ONE (10:09)
[2021-08-01] MEDS ORDERED: PROPOFOL 200 MG/20 ML VIAL ONE (10:09)
[2021-08-01] MEDS ORDERED: Ketamine 50 MG/ML (10ML VIAL) ONE (10:22)
[2021-08-01] MEDS ORDERED: PROPOFOL 40 ML ONE (10:23)
[2021-08-01] MEDS ORDERED: Benzocaine 20% Spray 60 ML CAN ONE (10:23)
[2021-08-01] MEDS: Benzonatate 100 MG CAP PO PRN (15:40)
[2021-08-01] MEDS: Acetaminophen 325 MG TAB PO PRN (18:43)
[2021-08-01] MEDS: cefTRIAXone\\ROCEPHIN 2 GM in Sodium Chloride 0.9% 100 ML IVPB SCH (21:23)
[2021-08-02 05:03] LABS: ALT (SGPT) 32 U/L (8-55); AST (SGOT) 138 U/L (5-34); Albumin 1.9 g/dL (3.5-5.0); Alkaline Phosphatase 115 U/L (40-110); Anion Gap 9 mmol/L (10-20); BUN (Urea Nitrogen) 9 mg/dL (7.0-18.7); Bilirubin, Total 5.2 mg/dL (0.2-1.2); Calc. Creatinine Clearance 134 mL/min (70-130); Calcium 7.6 mg/dL (7.8-10.44); Carbon Dioxide 21 mmol/L (22-29); Chloride 102 mmol/L (98-107); Globulin 4.3 g/dL (2.4-3.5); Glucose 153 mg/dL (70-105); Potassium 3.4 mmol/L (3.5-5.1); Protein, Total 6.2 g/dL (6.0-8.3); Sodium 129 mmol/L (136-145)
[2021-08-02 05:55] LABS: Anisocytosis SLIGHT = 6-15 cells (100X) (0-5/hpf); Eosinophils 1 % (0-10); Hemoglobin 7.8 g/dL (12.0-16.0); Hypochromia SLIGHT = 6-15 cells (100X) (0-5/hpf); Lymphocytes 28 % (21-51); MDiff Complete? YES; Mean Corpuscular HGB CONC 31.1 g/dL (32.0-36.0); Mean Corpuscular Hemoglobin 27.5 pg (27.0-31.0); Mean Corpuscular Volume 88.3 fL (78.0-98.0); Mean Platelet Volume 5.9 fL (7.4-10.4); Monocytes 17 % (0-10); Neutrophil 53 % (42-75); Platelet Count 89 thou/uL (130-400); Platelet Morphology Comment Appears Decreased; RBC Distribution Width 22.2 % (11.5-14.5); Reactive Lymphocytes 1 % (0-10); Red Blood Cell (RBC) Count 2.83 mill/uL (4.20-5.40); Target Cells MODERATE= 6-15 cells (100X) (0-1/hpf); White Blood Cell (WBC) Count 10.8 thou/uL (4.8-10.8)
[2021-08-02] MEDS: Acetaminophen 325 MG TAB PO PRN ×2 (06:24→22:00)
[2021-08-02] MEDS: Enoxaparin Sodium 40 MG/0.4 ML SYRINGE SC SCH (09:16)
[2021-08-02] MEDS: Benzonatate 100 MG CAP PO PRN (09:17)
[2021-08-02] MEDS: Multivitamin W/ Minerals 1 TAB PO SCH (09:17)
[2021-08-02] MEDS: metroNIDAZOLE 500 MG TAB PO SCH ×2 (09:17→20:15)
[2021-08-02] MEDS ORDERED: Potassium Chloride 20 MEQ TAB PO SCH (09:30)
[2021-08-02 12:09] LABS: Potassium, Urine 20.9 mmol/L
[2021-08-03 05:09] LABS: Hemoglobin 8.2 g/dL (12.0-16.0); Mean Corpuscular HGB CONC 30.9 g/dL (32.0-36.0); Mean Corpuscular Hemoglobin 27.4 pg (27.0-31.0); Mean Corpuscular Volume 88.7 fL (78.0-98.0); Mean Platelet Volume 11.2 fL (7.4-10.4); Platelet Count 99 thou/uL (130-400); RBC Distribution Width 22.5 % (11.5-14.5); Red Blood Cell (RBC) Count 2.98 mill/uL (4.20-5.40); White Blood Cell (WBC) Count 10.8 thou/uL (4.8-10.8)
[2021-08-03 05:10] LABS: ALT (SGPT) 32 U/L (8-55); AST (SGOT) 114 U/L (5-34); Alkaline Phosphatase 119 U/L (40-110); Anion Gap 9 mmol/L (10-20); BUN (Urea Nitrogen) 6 mg/dL (7.0-18.7); Bilirubin, Total 5.6 mg/dL (0.2-1.2); Calc. Creatinine Clearance 140 mL/min (70-130); Calcium 7.9 mg/dL (7.8-10.44); Carbon Dioxide 24 mmol/L (22-29); Chloride 102 mmol/L (98-107); Globulin 4.2 g/dL (2.4-3.5); Glucose 109 mg/dL (70-105); Potassium 3.9 mmol/L (3.5-5.1); Protein, Total 6.2 g/dL (6.0-8.3); Sodium 131 mmol/L (136-145)
[2021-08-03] MEDS: Acetaminophen 325 MG TAB PO PRN ×2 (05:20→17:13)
[2021-08-03 05:46] LABS: Band 1 % (5-11); Eosinophils 2 % (0-10); Lymphocytes 27 % (21-51); MDiff Complete? YES; Metamyelocyte 2 % (0-0); Monocytes 15 % (0-10); Neutrophil 53 % (42-75); Platelet Morphology Comment Appears Decreased; Target Cells SLIGHT = 2-5 cells (100X) (0-1/hpf); Toxic Granulation SLIGHT
[2021-08-03] MEDS: metroNIDAZOLE 500 MG TAB PO SCH ×2 (09:44→20:49)
[2021-08-03] MEDS: Multivitamin W/ Minerals 1 TAB PO SCH (09:44)
[2021-08-03] MEDS: Enoxaparin Sodium 40 MG/0.4 ML SYRINGE SC SCH (09:45)
[2021-08-04] MEDS: Acetaminophen 325 MG TAB PO PRN ×2 (00:56→13:14)
[2021-08-04 04:42] LABS: ALT (SGPT) 29 U/L (8-55); AST (SGOT) 100 U/L (5-34); Alkaline Phosphatase 111 U/L (40-110); Anion Gap 9 mmol/L (10-20); BUN (Urea Nitrogen) 7 mg/dL (7.0-18.7); Bilirubin, Total 5.8 mg/dL (0.2-1.2); Calc. Creatinine Clearance 131 mL/min (70-130); Calcium 7.9 mg/dL (7.8-10.44); Carbon Dioxide 25 mmol/L (22-29); Chloride 99 mmol/L (98-107); Globulin 4.3 g/dL (2.4-3.5); Glucose 128 mg/dL (70-105); Mean Corpuscular Hemoglobin 27.1 pg (27.0-31.0); Mean Corpuscular Volume 90.4 fL (78.0-98.0); Mean Platelet Volume 10.8 fL (7.4-10.4); Platelet Count 125 thou/uL (130-400); Potassium 3.9 mmol/L (3.5-5.1); Protein, Total 6.3 g/dL (6.0-8.3); RBC Distribution Width 23.9 % (11.5-14.5); Red Blood Cell (RBC) Count 2.93 mill/uL (4.20-5.40); Sodium 129 mmol/L (136-145); White Blood Cell (WBC) Count 11.4 thou/uL (4.8-10.8)
[2021-08-04 04:43] LABS: Anisocytosis SLIGHT = 6-15 cells (100X) (0-5/hpf); Band 2 % (5-11); Hypochromia SLIGHT = 6-15 cells (100X) (0-5/hpf); Lymphocytes 25 % (21-51); MDiff Complete? YES; Monocytes 22 % (0-10); Neutrophil 47 % (42-75); Platelet Morphology Comment Appears Adequate; Polychromasia SLIGHT = 2-3 cells (100X) (0-2/hpf); Target Cells MODERATE= 6-15 cells (100X) (0-1/hpf)
[2021-08-04] MEDS: Enoxaparin Sodium 40 MG/0.4 ML SYRINGE SC SCH (08:42)
[2021-08-04] MEDS: Multivitamin W/ Minerals 1 TAB PO SCH (08:42)
[2021-08-04] MEDS: metroNIDAZOLE 500 MG TAB PO SCH (08:42)
[2021-08-04 12:29] VITALS: TEMP 98.4
[2021-08-04] MEDS: Benzonatate 100 MG CAP PO PRN (13:14)
[2021-08-04] MEDS ORDERED: hydrOXYzine 25 MG TAB PO SCH ×2 (14:00→18:00)
[2021-08-04 16:26] VITALS: BP 131/79
== END 2021-08-04 17:30 | disposition home or self-care (01) | DRG 871 ==
LOC: ERS 14:25 → ERHOLD 16:19 → 2NO 21:17
PROVIDERS: ADMIT Student in an Organized Health Care Education/Training Program; ATTEND Student in an Organized Health Care Education/Training Program
PROC: 3E03329 Introduction of Other Anti-infective into Peripheral Vein, Percutaneous Approach (ICD-10-PCS; 2021-07-29)
PROC: B24BZZ4 Ultrasonography of Heart with Aorta, Transesophageal (ICD-10-PCS; principal; 2021-08-01)
DX: A40.3 Sepsis due to Streptococcus pneumoniae (principal); G92.8 Other toxic encephalopathy; J13 Pneumonia due to Streptococcus pneumoniae; J69.0 Pneumonitis due to inhalation of food and vomit; E87.2 Acidosis; M62.82 Rhabdomyolysis; R45.851 Suicidal ideations; E22.2 Syndrome of inappropriate secretion of antidiuretic hormone; Z20.822 Contact with and (suspected) exposure to COVID-19; I10 Essential (primary) hypertension; T43.621A Poisoning by amphetamines, accidental (unintentional), initial encounter; F32.A Depression, unspecified; E83.42 Hypomagnesemia; R74.01 Elevation of levels of liver transaminase levels; D64.9 Anemia, unspecified; A59.9 Trichomoniasis, unspecified; K70.30 Alcoholic cirrhosis of liver without ascites; F15.129 Other stimulant abuse with intoxication, unspecified; F10.20 Alcohol dependence, uncomplicated; R73.9 Hyperglycemia, unspecified; R01.1 Cardiac murmur, unspecified; I08.1 Rheumatic disorders of both mitral and tricuspid valves; D69.6 Thrombocytopenia, unspecified; Z88.0 Allergy status to penicillin; Z91.018 Allergy to other foods; Z79.899 Other long term (current) drug therapy
CPT/HCPCS: 36415; 51701; 70450; 71046; 80053; 80074; 80306; 80307; 81003; 81015; 82550; 82553; 82805; 83036; 83605; 83735; 83880; 83930; 83935; 84100; 84133; 84145; 84300; 84484; 84703; 85025; 86593; 86780; 87040; 87077; 87086; 87149; 87186; 87389; 93005; 93010; 93306; 93312; 96365; 96375; J0696; J1650; J1885; J1956; J2060; J2704; J3475; J3490; J7050; J7120; U0002

== ENCOUNTER 2021-09-29 14:58 | Inpatient (IN) | payer SELFPAY ==
[2021-09-29 15:58] LABS: Hemoglobin 9.2 g/dL (12.0-16.0); Mean Corpuscular HGB CONC 31.7 g/dL (32.0-36.0); Mean Corpuscular Hemoglobin 27.1 pg (27.0-31.0); Mean Corpuscular Volume 85.6 fL (78.0-98.0); Mean Platelet Volume 10.7 fL (7.4-10.4); Platelet Count 119 thou/uL (130-400); RBC Distribution Width 18.3 % (11.5-14.5); Red Blood Cell (RBC) Count 3.39 mill/uL (4.20-5.40); White Blood Cell (WBC) Count 5.6 thou/uL (4.8-10.8)
[2021-09-29 16:11] LABS: Eosinophils 1 % (0-10); Lymphocytes 28 % (21-51); MDiff Complete? YES; Monocytes 16 % (0-10); Neutrophil 54 % (42-75); Platelet Morphology Comment Appears Decreased; Polychromasia SLIGHT = 2-3 cells (100X) (0-2/hpf); Target Cells SLIGHT = 2-5 cells (100X) (0-1/hpf)
[2021-09-29 16:19] LABS: Acetaminophen Less than 10.0 mcg/mL (10.0-30.0); Alcohol Less than 10 mg/dL (Less than 10); Salicylate Less than 8.0 mg/dL (15.0-30.0)
[2021-09-29 16:20] LABS: ALT (SGPT) 17 U/L (8-55); AST (SGOT) 42 U/L (5-34); Albumin 2.4 g/dL (3.5-5.0); Alkaline Phosphatase 187 U/L (40-110); Anion Gap 9 mmol/L (10-20); BUN (Urea Nitrogen) 9 mg/dL (7.0-18.7); Bilirubin, Total 1.9 mg/dL (0.2-1.2); CK (CPK) 124 U/L (29-168); Calc. Creatinine Clearance 0 mL/min (70-130); Calcium 8.4 mg/dL (7.8-10.44); Carbon Dioxide 26 mmol/L (22-29); Chloride 105 mmol/L (98-107); Globulin 4.3 g/dL (2.4-3.5); Glucose 124 mg/dL (70-105); Lipase 48 U/L (8-78); Magnesium 1.4 mg/dL (1.6-2.6); Potassium 3.7 mmol/L (3.5-5.1); Protein, Total 6.7 g/dL (6.0-8.3); Sodium 136 mmol/L (136-145)
[2021-09-29] MEDS ORDERED: Magnesium 2 GM/50 ML BAG (IN WATER) ONE ×2 (16:42→16:49)
[2021-09-29 16:52] LABS: Bacteria/HPF 1+ HPF (None Seen); Bilirubin Negative (Negative); Blood, Urine Trace (Negative); Clarity Clear (Clear); Glucose, Urine (Dipstick) 30 mg/dL (Negative); Ketone, Urine Negative (Negative); Leukocyte 250 Leu/uL (Negative); Nitrite Negative (Negative); Pregnancy Test - Urine (BHCG) Negative (Negative); Pregu Control Background? CLEAR/WHITE (CLR/WHITE); Pregu Control Bar Appear? YES (CONTROL BAR); Protein, Urine (Dipstick) 10 mg/dL (Neg-Trace); RBC/HPF 0-3 HPF (0-3); Specific Gravity 1.019 (1.002-1.036); Specific Gravity, Urine 1.019 (1.002-1.036); Squamous Epithelial 0-3 HPF (0-3); WBC/HPF 0-3 HPF (0-3)
[2021-09-29 17:00] LABS: Amphetamine Not Detected (NotDetected); Barbiturates Screen Not Detected (NotDetected); Benzodiazepine Screen Not Detected (NotDetected); Cocaine Metabolite Screen Not Detected (NotDetected); Methadone Not Detected (NotDetected); Methamphetamine Not Detected (NotDetected); Opiate Screen Not Detected (NotDetected); Oxycodone Screen Not Detected (NotDetected); Phencyclidine (PCP) Not Detected (NotDetected); THC/Cannabinoid Screen Not Detected (NotDetected); Tricyclic Screen Not Detected (NotDetected)
[2021-09-29] MEDS ORDERED: Aspirin Chewable 81 MG TAB ONE (17:58)
[2021-09-29] MEDS ORDERED: Bisacodyl 5 MG TAB PO PRN (18:02)
[2021-09-29] MEDS ORDERED: Ondansetron PF 4 MG/2 ML Vial IVP PRN (18:02)
[2021-09-29] MEDS ORDERED: Lorazepam 1 MG TAB PO PRN (18:02)
[2021-09-29] MEDS ORDERED: Senokot S 8.6-50 MG TAB PO PRN (18:02)
[2021-09-29] MEDS ORDERED: Lorazepam 2 MG/ML VIAL IM PRN (18:02)
[2021-09-29] MEDS ORDERED: Electrolyte Replacement Protocol 1 EACH FS SCH (18:15)
[2021-09-29 19:18] LABS: Troponin I 0.051 ng/mL (< 0.028)
[2021-09-29 22:03] LABS: Troponin I 0.046 ng/mL (< 0.028)
[2021-09-29] MEDS: Sodium Chloride 0.9% 1,000 ML IV SCH (22:23)
[2021-09-29 22:24] LABS: Magnesium 1.7 mg/dL (1.6-2.6)
[2021-09-29] MEDS: Lorazepam 1 MG TAB PO SCH (22:26)
[2021-09-29] MEDS: Thiamine HCl 200 MG/2 ML VIAL SLOW IVP SCH (22:30)
[2021-09-29] MEDS: Nicotine 21 MG PATCH TD SCH (22:30)
[2021-09-30] MEDS ORDERED: Furosemide 20 MG/2 ML VIAL SLOW IVP SCH (01:00)
[2021-09-30] MEDS: Lorazepam 1 MG TAB PO SCH ×4 (01:18→17:13)
[2021-09-30 05:39] LABS: SARS-CoV-2 NAA Rapid Test Not Detected (NotDetected)
[2021-09-30 05:40] LABS: Eosinophils 1 % (0-10); Hemoglobin 10.7 g/dL (12.0-16.0); Hypochromia SLIGHT = 6-15 cells (100X) (0-5/hpf); Lymphocytes 48 % (21-51); MDiff Complete? YES; Mean Corpuscular HGB CONC 30.6 g/dL (32.0-36.0); Mean Corpuscular Volume 91.6 fL (78.0-98.0); Mean Platelet Volume 10.2 fL (7.4-10.4); Monocytes 2 % (0-10); Neutrophil 49 % (42-75); Platelet Count 71 thou/uL (130-400); Platelet Morphology Comment Appears Decreased; RBC Distribution Width 18.9 % (11.5-14.5); Red Blood Cell (RBC) Count 3.83 mill/uL (4.20-5.40); White Blood Cell (WBC) Count 4.3 thou/uL (4.8-10.8)
[2021-09-30 06:23] LABS: ALT (SGPT) 17 U/L (8-55); AST (SGOT) 42 U/L (5-34); Albumin 2.2 g/dL (3.5-5.0); Alkaline Phosphatase 154 U/L (40-110); Anion Gap 9 mmol/L (10-20); BUN (Urea Nitrogen) 9 mg/dL (7.0-18.7); Bilirubin, Total 1.8 mg/dL (0.2-1.2); Calc. Creatinine Clearance 114 mL/min (70-130); Calcium 8.5 mg/dL (7.8-10.44); Carbon Dioxide 27 mmol/L (22-29); Chloride 105 mmol/L (98-107); Globulin 4.2 g/dL (2.4-3.5); Glucose 240 mg/dL (70-105); Phosphorus 4.1 mg/dL (2.3-4.7); Potassium 3.7 mmol/L (3.5-5.1); Protein, Total 6.4 g/dL (6.0-8.3); Sodium 137 mmol/L (136-145)
[2021-09-30] MEDS: Folic Acid 1 MG TAB PO SCH (08:22)
[2021-09-30] MEDS: Multivit, Therapeutic 1 TAB PO SCH (08:22)
[2021-09-30] MEDS: Sodium Chloride 0.9% 1,000 ML IV SCH (11:43)
[2021-09-30 13:55] LABS: Syphilis Antibody Index 12.32 S/CO (<1.00 Non-Reactive)
[2021-09-30 14:05] LABS: Syphilis Antibody INDETERMINATE (Nonreactive)
[2021-09-30] MEDS: Thiamine HCl 200 MG/2 ML VIAL SLOW IVP SCH (17:12)
[2021-09-30] MEDS: Nicotine 21 MG PATCH TD SCH (17:13)
[2021-09-30] MEDS ORDERED: Nicotine 14 MG PATCH TD PRN (17:56)
[2021-09-30] MEDS ORDERED: Dextrose 5% in Water 1,000 ML IV PRN (18:01)
[2021-09-30] MEDS ORDERED: Dextrose 50% Abboject 50 ML SYRINGE SLOW IVP PRN (18:01)
[2021-09-30] MEDS ORDERED: Insulin Regular 300 UNITS/3 ML VIAL SC PRN (18:01)
[2021-09-30] MEDS ORDERED: Lorazepam 1 MG TAB PO PRN (18:02)
[2021-09-30] MEDS: Senokot S 8.6-50 MG TAB PO SCH ×2 (21:17→21:45)
[2021-09-30] MEDS: pyridOXINE 50 MG (B6) TAB PO SCH ×2 (21:18→21:44)
[2021-09-30] MEDS: Cyanocobalamin (Vitamin B-12) 1,000 MCG TAB PO SCH ×2 (21:18→21:44)
[2021-09-30] MEDS ORDERED: Lorazepam 2 MG/ML VIAL ONE (23:04)
[2021-09-30] MEDS ORDERED: Lorazepam 2 MG/ML VIAL SLOW IVP SCH (23:30)
[2021-10-01] MEDS: Lorazepam 1 MG TAB PO SCH ×3 (00:17→12:45)
[2021-10-01 04:40] LABS: ALT (SGPT) 18 U/L (8-55); AST (SGOT) 47 U/L (5-34); Albumin 2.4 g/dL (3.5-5.0); Alkaline Phosphatase 151 U/L (40-110); Anion Gap 10 mmol/L (10-20); BUN (Urea Nitrogen) 10 mg/dL (7.0-18.7); Bilirubin, Total 1.8 mg/dL (0.2-1.2); Calc. Creatinine Clearance 128 mL/min (70-130); Calcium 8.5 mg/dL (7.8-10.44); Carbon Dioxide 25 mmol/L (22-29); Chloride 108 mmol/L (98-107); Globulin 4.6 g/dL (2.4-3.5); Glucose 82 mg/dL (70-105); Magnesium 1.3 mg/dL (1.6-2.6); Potassium 3.9 mmol/L (3.5-5.1); Sodium 139 mmol/L (136-145)
[2021-10-01 05:53] LABS: Band 1 % (5-11); Eosinophils 6 % (0-10); Hypochromia SLIGHT = 6-15 cells (100X) (0-5/hpf); Lymphocytes 40 % (21-51); MDiff Complete? YES; Mean Corpuscular HGB CONC 31.2 g/dL (32.0-36.0); Mean Corpuscular Volume 86.5 fL (78.0-98.0); Mean Platelet Volume 10.6 fL (7.4-10.4); Monocytes 13 % (0-10); Neutrophil 40 % (42-75); Platelet Count 133 thou/uL (130-400); Platelet Morphology Comment Appears Adequate; Polychromasia SLIGHT = 2-3 cells (100X) (0-2/hpf); RBC Distribution Width 18.3 % (11.5-14.5); Red Blood Cell (RBC) Count 3.71 mill/uL (4.20-5.40)
[2021-10-01] MEDS ORDERED: Magnesium Sulfate In Water 4 GM in Premix Bag 1 BAG IVPB SCH (06:30)
[2021-10-01] MEDS: Multivit, Therapeutic 1 TAB PO SCH ×2 (09:57→11:59)
[2021-10-01] MEDS: Folic Acid 1 MG TAB PO SCH ×2 (09:57→12:00)
[2021-10-01] MEDS: K-Phos Neutral 250 MG TAB PO SCH ×2 (12:49→18:48)
[2021-10-01] MEDS ORDERED: Lorazepam 1 MG TAB PO PRN (18:02)
[2021-10-01] MEDS: Propranolol 10 MG TAB PO SCH (18:48)
[2021-10-01] MEDS: Lorazepam 0.5 MG TAB PO SCH ×2 (21:17→21:41)
[2021-10-01] MEDS: Senokot S 8.6-50 MG TAB PO SCH (21:41)
[2021-10-01] MEDS: Cyanocobalamin (Vitamin B-12) 1,000 MCG TAB PO SCH (21:42)
[2021-10-01] MEDS: Thiamine HCl 200 MG/2 ML VIAL SLOW IVP SCH ×2 (21:42→21:44)
[2021-10-01] MEDS: pyridOXINE 50 MG (B6) TAB PO SCH (21:42)
[2021-10-02 03:55] LABS: Albumin 2.6 g/dL (3.5-5.0); Anion Gap 10 mmol/L (10-20); BUN (Urea Nitrogen) 9 mg/dL (7.0-18.7); BUN/Creatinine Ratio 14.06; Calc. Creatinine Clearance 127 mL/min (70-130); Calcium 8.7 mg/dL (7.8-10.44); Carbon Dioxide 26 mmol/L (22-29); Chloride 106 mmol/L (98-107); Glucose 102 mg/dL (70-105); Magnesium 1.5 mg/dL (1.6-2.6); Phosphorus 4.4 mg/dL (2.3-4.7); Potassium 3.8 mmol/L (3.5-5.1); Sodium 138 mmol/L (136-145)
[2021-10-02 04:03] LABS: Band 2 % (5-11); Eosinophils 3 % (0-10); Hypochromia SLIGHT = 6-15 cells (100X) (0-5/hpf); Lymphocytes 25 % (21-51); MDiff Complete? YES; Mean Corpuscular HGB CONC 31.7 g/dL (32.0-36.0); Mean Corpuscular Hemoglobin 27.4 pg (27.0-31.0); Mean Corpuscular Volume 86.6 fL (78.0-98.0); Mean Platelet Volume 9.8 fL (7.4-10.4); Monocytes 11 % (0-10); Neutrophil 59 % (42-75); Platelet Count 128 thou/uL (130-400); Platelet Morphology Comment Appears Decreased; RBC Distribution Width 18.2 % (11.5-14.5); Red Blood Cell (RBC) Count 4.02 mill/uL (4.20-5.40)
[2021-10-02] MEDS ORDERED: Magnesium 2 GM/50 ML(in water) 2 GM in Premix Bag 1 BAG IVPB SCH (04:45)
[2021-10-02] MEDS: K-Phos Neutral 250 MG TAB PO SCH ×3 (08:29→17:14)
[2021-10-02] MEDS: Propranolol 10 MG TAB PO SCH ×2 (08:29→17:14)
[2021-10-02] MEDS: Multivit, Therapeutic 1 TAB PO SCH (08:30)
[2021-10-02] MEDS: Folic Acid 1 MG TAB PO SCH (08:32)
[2021-10-02] MEDS: Thiamine 100 MG TAB PO SCH (17:14)
[2021-10-02] MEDS ORDERED: cloNIDine 0.1 MG TAB PO PRN (17:48)
[2021-10-02] MEDS ORDERED: Lorazepam 0.5 MG TAB PO PRN (18:02)
[2021-10-02] MEDS: pyridOXINE 50 MG (B6) TAB PO SCH (21:22)
[2021-10-02] MEDS: Cyanocobalamin (Vitamin B-12) 1,000 MCG TAB PO SCH (21:22)
[2021-10-02] MEDS: Rifaximin 550 MG TAB PO SCH (21:22)
[2021-10-02] MEDS: Thiamine HCl 200 MG/2 ML VIAL SLOW IVP SCH (22:07)
[2021-10-03 04:35] LABS: Hemoglobin 12.1 g/dL (12.0-16.0); Mean Corpuscular HGB CONC 30.8 g/dL (32.0-36.0); Mean Corpuscular Volume 87.6 fL (78.0-98.0); Mean Platelet Volume 10.3 fL (7.4-10.4); Platelet Count 152 thou/uL (130-400); RBC Distribution Width 18.6 % (11.5-14.5); Red Blood Cell (RBC) Count 4.48 mill/uL (4.20-5.40); White Blood Cell (WBC) Count 7.3 thou/uL (4.8-10.8)
[2021-10-03 04:52] LABS: Phosphorus 4.4 mg/dL (2.3-4.7)
[2021-10-03 05:18] LABS: ALT (SGPT) 22 U/L (8-55); AST (SGOT) 65 U/L (5-34); Albumin 2.8 g/dL (3.5-5.0); Alkaline Phosphatase 140 U/L (40-110); Anion Gap 18 mmol/L (10-20); BUN (Urea Nitrogen) 11 mg/dL (7.0-18.7); Bilirubin, Total 2.7 mg/dL (0.2-1.2); Calc. Creatinine Clearance 116 mL/min (70-130); Calcium 9.4 mg/dL (7.8-10.44); Carbon Dioxide 16 mmol/L (22-29); Chloride 107 mmol/L (98-107); Globulin 5.5 g/dL (2.4-3.5); Glucose 85 mg/dL (70-105); Magnesium 1.6 mg/dL (1.6-2.6); Protein, Total 8.3 g/dL (6.0-8.3); Sodium 137 mmol/L (136-145)
[2021-10-03 05:29] LABS: Eosinophils 5 % (0-10); Lymphocytes 27 % (21-51); MDiff Complete? YES; Monocytes 15 % (0-10); Neutrophil 52 % (42-75)
[2021-10-03] MEDS ORDERED: Magnesium 2 GM/50 ML(in water) 2 GM in Premix Bag 1 BAG IVPB SCH (05:30)
[2021-10-03] MEDS: Folic Acid 1 MG TAB PO SCH (08:41)
[2021-10-03] MEDS: Multivit, Therapeutic 1 TAB PO SCH (08:41)
[2021-10-03] MEDS: K-Phos Neutral 250 MG TAB PO SCH ×2 (08:41→11:41)
[2021-10-03] MEDS: Rifaximin 550 MG TAB PO SCH ×2 (08:41→20:50)
[2021-10-03] MEDS: Propranolol 10 MG TAB PO SCH ×2 (08:41→17:15)
[2021-10-03] MEDS: Thiamine 100 MG TAB PO SCH (17:15)
[2021-10-03] MEDS: pyridOXINE 50 MG (B6) TAB PO SCH (20:50)
[2021-10-03] MEDS: Cyanocobalamin (Vitamin B-12) 1,000 MCG TAB PO SCH (20:51)
[2021-10-04 06:48] LABS: ALT (SGPT) 17 U/L (8-55); AST (SGOT) 50 U/L (5-34); Albumin 2.5 g/dL (3.5-5.0); Alkaline Phosphatase 128 U/L (40-110); Anion Gap 10 mmol/L (10-20); BUN (Urea Nitrogen) 13 mg/dL (7.0-18.7); Bilirubin, Total 1.8 mg/dL (0.2-1.2); Calc. Creatinine Clearance 102 mL/min (70-130); Calcium 9.1 mg/dL (7.8-10.44); Carbon Dioxide 26 mmol/L (22-29); Chloride 105 mmol/L (98-107); Globulin 4.4 g/dL (2.4-3.5); Glucose 118 mg/dL (70-105); Potassium 3.7 mmol/L (3.5-5.1); Protein, Total 6.9 g/dL (6.0-8.3); Sodium 137 mmol/L (136-145)
[2021-10-04] MEDS: Rifaximin 550 MG TAB PO SCH ×2 (10:14→20:22)
[2021-10-04] MEDS: Multivit, Therapeutic 1 TAB PO SCH (10:14)
[2021-10-04] MEDS: Folic Acid 1 MG TAB PO SCH (10:14)
[2021-10-04] MEDS: Propranolol 10 MG TAB PO SCH ×2 (10:15→16:30)
[2021-10-04] MEDS: Thiamine 100 MG TAB PO SCH (18:02)
[2021-10-04] MEDS: Cyanocobalamin (Vitamin B-12) 1,000 MCG TAB PO SCH (20:23)
[2021-10-04] MEDS: pyridOXINE 50 MG (B6) TAB PO SCH (20:23)
[2021-10-05 04:23] VITALS: BMI 24.8
[2021-10-05] MEDS: Rifaximin 550 MG TAB PO SCH ×2 (07:56→20:24)
[2021-10-05] MEDS: Folic Acid 1 MG TAB PO SCH (07:56)
[2021-10-05] MEDS: Multivit, Therapeutic 1 TAB PO SCH (07:56)
[2021-10-05] MEDS: Propranolol 10 MG TAB PO SCH ×2 (07:57→17:54)
[2021-10-05] MEDS ORDERED: Electrolyte Replacement Protocol FS PRN (13:15)
[2021-10-05] MEDS: Thiamine 100 MG TAB PO SCH (17:54)
[2021-10-05] MEDS: Cyanocobalamin (Vitamin B-12) 1,000 MCG TAB PO SCH (20:24)
[2021-10-05] MEDS: pyridOXINE 50 MG (B6) TAB PO SCH (20:24)
[2021-10-06 08:26] LABS: Hemoglobin A1c 7.1 % (4.0-6.0)
[2021-10-06 08:29] LABS: INR-International Normal Ratio 1.6
[2021-10-06 08:39] LABS: ALT (SGPT) 25 U/L (8-55); AST (SGOT) 64 U/L (5-34); Albumin 2.7 g/dL (3.5-5.0); Alkaline Phosphatase 137 U/L (40-110); Anion Gap 12 mmol/L (10-20); BUN (Urea Nitrogen) 8 mg/dL (7.0-18.7); Bilirubin, Total 2.2 mg/dL (0.2-1.2); Calc. Creatinine Clearance 132 mL/min (70-130); Calcium 9.1 mg/dL (7.8-10.44); Carbon Dioxide 22 mmol/L (22-29); Chloride 107 mmol/L (98-107); Globulin 4.8 g/dL (2.4-3.5); Glucose 102 mg/dL (70-105); Protein, Total 7.5 g/dL (6.0-8.3); Sodium 137 mmol/L (136-145)
[2021-10-06] MEDS: Rifaximin 550 MG TAB PO SCH ×2 (09:50→22:10)
[2021-10-06] MEDS: Multivit, Therapeutic 1 TAB PO SCH (09:51)
[2021-10-06] MEDS: Propranolol 10 MG TAB PO SCH ×2 (09:51→17:25)
[2021-10-06] MEDS: Folic Acid 1 MG TAB PO SCH (09:51)
[2021-10-06 12:28] LABS: SARS-CoV-2 PCR by NAA Not Detected (NotDetected)
[2021-10-06] MEDS: Thiamine 100 MG TAB PO SCH (18:22)
[2021-10-06] MEDS: pyridOXINE 50 MG (B6) TAB PO SCH (22:09)
[2021-10-06] MEDS: Cyanocobalamin (Vitamin B-12) 1,000 MCG TAB PO SCH (22:10)
[2021-10-07] MEDS: Rifaximin 550 MG TAB PO SCH ×2 (08:33→22:29)
[2021-10-07] MEDS: Multivit, Therapeutic 1 TAB PO SCH (08:33)
[2021-10-07] MEDS: Folic Acid 1 MG TAB PO SCH (08:33)
[2021-10-07] MEDS: Propranolol 10 MG TAB PO SCH ×2 (09:07→17:19)
[2021-10-07] MEDS: Insulin Regular 300 UNITS/3 ML VIAL SC PRN ×2 (12:28→17:19)
[2021-10-07] MEDS: Thiamine 100 MG TAB PO SCH (17:22)
[2021-10-07] MEDS: Cyanocobalamin (Vitamin B-12) 1,000 MCG TAB PO SCH (22:29)
[2021-10-07] MEDS: pyridOXINE 50 MG (B6) TAB PO SCH (22:29)
[2021-10-08] MEDS: Rifaximin 550 MG TAB PO SCH ×2 (07:57→22:26)
[2021-10-08] MEDS: Folic Acid 1 MG TAB PO SCH (07:58)
[2021-10-08] MEDS: Multivit, Therapeutic 1 TAB PO SCH (07:58)
[2021-10-08] MEDS: Propranolol 10 MG TAB PO SCH ×2 (07:59→17:05)
[2021-10-08] MEDS: Insulin Regular 300 UNITS/3 ML VIAL SC PRN (17:08)
[2021-10-08] MEDS: Thiamine 100 MG TAB PO SCH (18:32)
[2021-10-08] MEDS: pyridOXINE 50 MG (B6) TAB PO SCH (22:26)
[2021-10-08] MEDS: Cyanocobalamin (Vitamin B-12) 1,000 MCG TAB PO SCH (22:26)
[2021-10-09 07:54] VITALS: BP 124/73; TEMP 98.6
[2021-10-09] MEDS: Multivit, Therapeutic 1 TAB PO SCH (08:22)
[2021-10-09] MEDS: Rifaximin 550 MG TAB PO SCH (08:22)
[2021-10-09] MEDS: Folic Acid 1 MG TAB PO SCH (08:22)
[2021-10-09] MEDS: Propranolol 10 MG TAB PO SCH (08:22)
== END 2021-10-09 09:57 | disposition home or self-care (01) | DRG 441 ==
LOC: ERS 14:58 → 2NO 17:24 → OBSVTOIN 09-30 09:23 → T4-B 09-30 19:30 → 2NO 10-01 00:51 → T4-A 10-03 20:27
PROVIDERS: ADMIT Internal Medicine; ATTEND Internal Medicine
DX: K72.00 Acute and subacute hepatic failure without coma (principal); J18.0 Bronchopneumonia, unspecified organism; G93.41 Metabolic encephalopathy; F10.239 Alcohol dependence with withdrawal, unspecified; D61.818 Other pancytopenia; E44.0 Moderate protein-calorie malnutrition; Z20.822 Contact with and (suspected) exposure to COVID-19; J43.9 Emphysema, unspecified; E78.5 Hyperlipidemia, unspecified; F41.9 Anxiety disorder, unspecified; F31.9 Bipolar disorder, unspecified; E83.52 Hypercalcemia; F17.210 Nicotine dependence, cigarettes, uncomplicated; K70.11 Alcoholic hepatitis with ascites; F19.10 Other psychoactive substance abuse, uncomplicated; E11.65 Type 2 diabetes mellitus with hyperglycemia; I10 Essential (primary) hypertension; E87.6 Hypokalemia; Y90.0 Blood alcohol level of less than 20 mg/100 ml; G93.89 Other specified disorders of brain; E66.9 Obesity, unspecified; E83.42 Hypomagnesemia; Z90.49 Acquired absence of other specified parts of digestive tract; Z98.51 Tubal ligation status; Z59.00 Homelessness unspecified; Z90.710 Acquired absence of both cervix and uterus; Z68.24 Body mass index [BMI] 24.0-24.9, adult; Z91.14 Patient's other noncompliance with medication regimen
CPT/HCPCS: 36415; 36416; 51701; 70450; 71045; 72125; 80053; 80069; 80306; 80307; 81003; 81015; 81025; 82140; 82550; 82553; 83036; 83690; 83735; 84100; 84443; 84484; 85025; 85610; 86593; 86780; 93005; 95712; 95819; 95957; 96365; 96375; G0378; J1815; J1940; J2060; J3411; J3475; J7050; U0002; U0003; U0005

== ENCOUNTER 2021-10-12 02:49 | Emergency (ER) | payer SELFPAY | END 2021-10-12 04:30 | disposition home or self-care (01) | LOC: ERS 02:49 | DX: Z71.1 Person with feared health complaint in whom no diagnosis is made (principal); J44.9 Chronic obstructive pulmonary disease, unspecified; E78.5 Hyperlipidemia, unspecified; E11.9 Type 2 diabetes mellitus without complications; F17.210 Nicotine dependence, cigarettes, uncomplicated | CPT/HCPCS: 36416; 99281 ==

== ENCOUNTER 2021-10-20 10:06 | Inpatient (IN) | payer MEDICARE, SELFPAY ==
[2021-10-20 10:37] LABS: #Eosinphils 0.2 thou/uL (0.0-0.7); #Lymphocytes 1.8 thou/uL (1.20-3.40); #Monocytes 0.7 thou/uL (0.11-0.59); #Neutrophils 3.1 thou/uL (1.40-6.50); %Basophils 0.8 % (0.0-1.0); %Eosinophils 4.1 % (0.0-10.0); %Lymphocytes 30.9 % (21.0-51.0); %Monocytes 12.4 % (0.0-10.0); %Neutrophils 51.9 % (42.0-75.0); Mean Corpuscular HGB CONC 31.2 g/dL (32.0-36.0); Mean Corpuscular Hemoglobin 26.4 pg (27.0-31.0); Mean Corpuscular Volume 84.7 fL (78.0-98.0); Mean Platelet Volume 10.3 fL (7.4-10.4); Platelet Count 145 thou/uL (130-400); RBC Distribution Width 19.3 % (11.5-14.5); Red Blood Cell (RBC) Count 3.78 mill/uL (4.20-5.40); White Blood Cell (WBC) Count 5.9 thou/uL (4.8-10.8)
[2021-10-20 10:45] LABS: Actual Bicarbonate (HCO3v) 19 mEq/L (22-28); Analyzer IN Cardio ER; Base Excess -2.3 mEq/L (-2.0 to +3.0); Calcium, Ionized (venous) 1.02 mmol/L (1.16-1.32); Chloride (VBG) 112 mmol/L (98-106); Hemoglobin (Hb) 10.7 g/dL (11.7-16.0); Potassium (VBG) 3.67 mmol/L (3.70-5.30); Sodium 139.5 mmol/L (133-146); pH (venous) 7.53 (7.32-7.43)
[2021-10-20 12:13] LABS: ALT (SGPT) 24 U/L (8-55); AST (SGOT) 69 U/L (5-34); Acetaminophen Less than 10.0 mcg/mL (10.0-30.0); Albumin 2.6 g/dL (3.5-5.0); Alcohol Less than 10 mg/dL (Less than 10); Alkaline Phosphatase 180 U/L (40-110); Anion Gap 15 mmol/L (10-20); BUN (Urea Nitrogen) 8 mg/dL (7.0-18.7); Calc. Creatinine Clearance 0 mL/min (70-130); Calcium 8.5 mg/dL (7.8-10.44); Carbon Dioxide 17 mmol/L (22-29); Chloride 110 mmol/L (98-107); Globulin 4.8 g/dL (2.4-3.5); Glucose 117 mg/dL (70-105); Potassium 3.8 mmol/L (3.5-5.1); Protein, Total 7.4 g/dL (6.0-8.3); Salicylate Less than 8.0 mg/dL (15.0-30.0); Sodium 138 mmol/L (136-145)
[2021-10-20 15:34] LABS: Amphetamine Not Detected (NotDetected); Barbiturates Screen Not Detected (NotDetected); Benzodiazepine Screen Not Detected (NotDetected); Bilirubin Negative (Negative); Blood, Urine Trace (Negative); Clarity Clear (Clear); Cocaine Metabolite Screen Detected (NotDetected); Glucose, Urine (Dipstick) Normal (Negative); Ketone, Urine Negative (Negative); Leukocyte 25 Leu/uL (Negative); Methadone Not Detected (NotDetected); Methamphetamine Not Detected (NotDetected); Nitrite Negative (Negative); Opiate Screen Not Detected (NotDetected); Oxycodone Screen Not Detected (NotDetected); Phencyclidine (PCP) Not Detected (NotDetected); Protein, Urine (Dipstick) 10 mg/dL (Neg-Trace); Specific Gravity, Urine 1.019 (1.002-1.036); Squamous Epithelial 0-3 HPF (0-3); THC/Cannabinoid Screen Not Detected (NotDetected); Tricyclic Screen Not Detected (NotDetected); Urobilinogen 6 mg/dL (Less than 2); WBC/HPF 0-3 HPF (0-3); pH, Urine 7.5 (5.0-9.0)
[2021-10-20 15:36] LABS: Bacteria/HPF 1+ HPF (None Seen)
[2021-10-20] MEDS ORDERED: Dextrose 5% in Water 1,000 ML IV PRN (16:37)
[2021-10-20] MEDS ORDERED: HumaLOG 300 UNITS/3 ML VIAL SC PRN (16:37)
[2021-10-20] MEDS ORDERED: Dextrose 50% Abboject 50 ML SYRINGE SLOW IVP PRN (16:37)
[2021-10-20 16:40] VITALS: BMI 25.7
[2021-10-20] MEDS ORDERED: Ondansetron ODT 4 MG TAB PO PRN (16:40)
[2021-10-20] MEDS ORDERED: Ondansetron PF 4 MG/2 ML Vial IVP PRN (16:40)
[2021-10-20] MEDS ORDERED: Acetaminophen 650 MG Suppository PR PRN (16:40)
[2021-10-20] MEDS ORDERED: Acetaminophen 325 MG TAB PO PRN (16:40)
[2021-10-20] MEDS: cefTRIAXone\\ROCEPHIN 1 GM in Sodium Chloride 0.9% 100 ML IVPB SCH (16:57)
[2021-10-20] MEDS: Sodium Chloride 0.9% 1,000 ML IV SCH (16:57)
[2021-10-20] MEDS: HumaLOG 300 UNITS/3 ML VIAL SC PRN (17:42)
[2021-10-20] MEDS ORDERED: Lorazepam 1 MG TAB PO PRN ×2 (18:12→20:37)
[2021-10-20] MEDS ORDERED: Lorazepam 2 MG/ML VIAL IM PRN (18:12)
[2021-10-20] MEDS ORDERED: Albuterol Sulfate 2.5 mg/3 ml Neb NEB PRN (18:14)
[2021-10-20] MEDS ORDERED: Electrolyte Replacement Protocol 1 EACH FS SCH (18:15)
[2021-10-20] MEDS ORDERED: Thiamine 100 MG TAB PO SCH (18:30)
[2021-10-20] MEDS ORDERED: Folic Acid 1 MG TAB PO SCH (18:30)
[2021-10-20] MEDS ORDERED: Multivit, Therapeutic 1 TAB PO SCH (18:30)
[2021-10-20] MEDS: Nicotine 14 MG PATCH TD SCH (18:46)
[2021-10-20 23:30] LABS: SARS-CoV-2 NAA Rapid Test Not Detected (NotDetected)
[2021-10-21] MEDS: Sodium Chloride 0.9% 1,000 ML IV SCH (03:21)
[2021-10-21 06:20] LABS: #Basophils 0.1 thou/uL (0.0-0.2); #Eosinphils 0.3 thou/uL (0.0-0.7); #Lymphocytes 1.8 thou/uL (1.20-3.40); #Monocytes 0.7 thou/uL (0.11-0.59); #Neutrophils 3.6 thou/uL (1.40-6.50); %Basophils 0.9 % (0.0-1.0); %Eosinophils 4.1 % (0.0-10.0); %Lymphocytes 28.9 % (21.0-51.0); %Monocytes 10.3 % (0.0-10.0); %Neutrophils 55.8 % (42.0-75.0); Hemoglobin 10.2 g/dL (12.0-16.0); Mean Corpuscular HGB CONC 31.7 g/dL (32.0-36.0); Mean Corpuscular Hemoglobin 27.2 pg (27.0-31.0); Mean Corpuscular Volume 85.9 fL (78.0-98.0); Mean Platelet Volume 9.7 fL (7.4-10.4); Platelet Count 126 thou/uL (130-400); RBC Distribution Width 19.2 % (11.5-14.5); Red Blood Cell (RBC) Count 3.76 mill/uL (4.20-5.40); White Blood Cell (WBC) Count 6.4 thou/uL (4.8-10.8)
[2021-10-21 06:45] LABS: ALT (SGPT) 21 U/L (8-55); AST (SGOT) 62 U/L (5-34); Albumin 2.7 g/dL (3.5-5.0); Alkaline Phosphatase 172 U/L (40-110); Anion Gap 12 mmol/L (10-20); BUN (Urea Nitrogen) 5 mg/dL (7.0-18.7); Bilirubin, Total 3.7 mg/dL (0.2-1.2); Calc. Creatinine Clearance 116 mL/min (70-130); Calcium 8.5 mg/dL (7.8-10.44); Carbon Dioxide 22 mmol/L (22-29); Chloride 107 mmol/L (98-107); Globulin 4.8 g/dL (2.4-3.5); Glucose 98 mg/dL (70-105); Potassium 3.2 mmol/L (3.5-5.1); Protein, Total 7.5 g/dL (6.0-8.3); Sodium 138 mmol/L (136-145)
[2021-10-21] MEDS ORDERED: Potassium Chloride 20 MEQ TAB PO SCH (07:15)
[2021-10-21] MEDS ORDERED: hydrALAZINE 20 MG/ML VIAL SLOW IVP PRN (07:40)
[2021-10-21] MEDS ORDERED: Labetalol HCl 100 MG/20 ML VIAL SLOW IVP PRN (07:40)
[2021-10-21] MEDS ORDERED: Calcium Carbonate 500 MG ChewTAB PO PRN (07:40)
[2021-10-21] MEDS ORDERED: Artificial Tear Sol 15 ML BOT EA EYE PRN (07:40)
[2021-10-21] MEDS ORDERED: Acetaminophen 325 MG TAB PO PRN (08:06)
[2021-10-21] MEDS: Thiamine 100 MG TAB PO SCH (09:00)
[2021-10-21] MEDS: Amlodipine 5 MG TAB PO SCH (09:00)
[2021-10-21] MEDS: Multivit, Therapeutic 1 TAB PO SCH (09:00)
[2021-10-21] MEDS: Folic Acid 1 MG TAB PO SCH (09:00)
[2021-10-21 09:07] LABS: Iron 44 ug/dL (50-170); Iron Binding Capacity, Total 293 mcg/dL (265-497)
[2021-10-21 09:08] LABS: Bilirubin, Direct 2.2 mg/dL (0.1-0.3); Bilirubin, Total 3.8 mg/dL (0.2-1.2)
[2021-10-21 09:08] LABS: Pregnancy Test - Urine (BHCG) Negative (Negative); Pregu Control Background? CLEAR/WHITE (CLR/WHITE); Pregu Control Bar Appear? YES (CONTROL BAR); Specific Gravity 1.019 (1.002-1.036)
[2021-10-21 09:26] LABS: Ferritin 37.04 ng/mL (10-291)
[2021-10-21 09:28] LABS: HIV (1/2) Antibody/Antigen Non-Reactive (NonReactive); HIV 1/2 INDEX 0.15 S/CO (<1.00)
[2021-10-21] MEDS: HumaLOG 300 UNITS/3 ML VIAL SC PRN ×2 (12:27→17:19)
[2021-10-21] MEDS: cefTRIAXone\\ROCEPHIN 1 GM in Sodium Chloride 0.9% 100 ML IVPB SCH (17:19)
[2021-10-21] MEDS: Nicotine 14 MG PATCH TD SCH (18:15)
[2021-10-22] MEDS: HumaLOG 300 UNITS/3 ML VIAL SC PRN ×2 (04:16→12:10)
[2021-10-22 06:10] LABS: Hemoglobin 10.9 g/dL (12.0-16.0); Mean Corpuscular HGB CONC 29.9 g/dL (32.0-36.0); Mean Corpuscular Hemoglobin 26.4 pg (27.0-31.0); Mean Corpuscular Volume 88.1 fL (78.0-98.0); Mean Platelet Volume 10.8 fL (7.4-10.4); Platelet Count 131 thou/uL (130-400); RBC Distribution Width 19.9 % (11.5-14.5); Red Blood Cell (RBC) Count 4.12 mill/uL (4.20-5.40); White Blood Cell (WBC) Count 6.1 thou/uL (4.8-10.8)
[2021-10-22 06:13] LABS: INR-International Normal Ratio 1.6; PTT 37.9 sec (22.9-36.1); Prothrombin Time 18.9 sec (12.0-14.7)
[2021-10-22 06:25] LABS: #Basophils 0.1 thou/uL (0.0-0.2); #Eosinphils 0.3 thou/uL (0.0-0.7); #Lymphocytes 2.2 thou/uL (1.20-3.40); #Monocytes 0.8 thou/uL (0.11-0.59); #Neutrophils 2.8 thou/uL (1.40-6.50); %Basophils 0.9 % (0.0-1.0); %Eosinophils 4.7 % (0.0-10.0); %Lymphocytes 35.5 % (21.0-51.0); %Neutrophils 45.8 % (42.0-75.0)
[2021-10-22 06:37] LABS: ALT (SGPT) 20 U/L (8-55); AST (SGOT) 57 U/L (5-34); Albumin 2.6 g/dL (3.5-5.0); Alkaline Phosphatase 239 U/L (40-110); Anion Gap 11 mmol/L (10-20); BUN (Urea Nitrogen) 7 mg/dL (7.0-18.7); Bilirubin, Total 2.4 mg/dL (0.2-1.2); Calc. Creatinine Clearance 99 mL/min (70-130); Calcium 8.5 mg/dL (7.8-10.44); Carbon Dioxide 23 mmol/L (22-29); Chloride 108 mmol/L (98-107); Glucose 210 mg/dL (70-105); Potassium 3.7 mmol/L (3.5-5.1); Protein, Total 7.6 g/dL (6.0-8.3); Sodium 138 mmol/L (136-145)
[2021-10-22] MEDS: Folic Acid 1 MG TAB PO SCH (09:02)
[2021-10-22] MEDS: Thiamine 100 MG TAB PO SCH (09:02)
[2021-10-22] MEDS: Amlodipine 5 MG TAB PO SCH (09:02)
[2021-10-22] MEDS: Multivit, Therapeutic 1 TAB PO SCH (09:04)
[2021-10-22 12:07] VITALS: BP 135/93; TEMP 97.9
[2021-10-23] MEDS ORDERED: Thiamine 100 MG TAB PO SCH (18:15)
== END 2021-10-22 14:41 | disposition home or self-care (01) | DRG 441 ==
LOC: ERS 10:06 → T4-A 14:34 → OBSVTOIN 10-21 11:00
PROVIDERS: ADMIT Family Medicine; ATTEND Family Medicine
DX: K72.00 Acute and subacute hepatic failure without coma (principal); G93.41 Metabolic encephalopathy; N39.0 Urinary tract infection, site not specified; E87.2 Acidosis; F12.929 Cannabis use, unspecified with intoxication, unspecified; Z20.822 Contact with and (suspected) exposure to COVID-19; J44.9 Chronic obstructive pulmonary disease, unspecified; E78.5 Hyperlipidemia, unspecified; F31.9 Bipolar disorder, unspecified; F17.210 Nicotine dependence, cigarettes, uncomplicated; E11.65 Type 2 diabetes mellitus with hyperglycemia; D64.9 Anemia, unspecified; F10.10 Alcohol abuse, uncomplicated; Z91.018 Allergy to other foods; Z88.0 Allergy status to penicillin; Z79.899 Other long term (current) drug therapy; Z59.00 Homelessness unspecified
CPT/HCPCS: 36415; 36416; 51701; 70450; 71045; 76705; 80053; 80306; 80307; 81003; 81015; 81025; 82140; 82247; 82607; 82728; 82746; 82805; 83540; 83550; 83605; 84425; 85025; 85610; 85730; 87086; 87389; 93005; 96374; G0378; J0696; J1815; J3490; J7050; U0002

== ENCOUNTER 2021-12-28 07:36 | Inpatient (IN) | payer OTHER, SELFPAY ==
[2021-12-28 08:36] LABS: Bilirubin Negative (Negative); Blood, Urine Trace (Negative); Clarity Clear (Clear); Glucose, Urine (Dipstick) Normal (Negative); Ketone, Urine Negative (Negative); Leukocyte 75 Leu/uL (Negative); Nitrite Negative (Negative); Protein, Urine (Dipstick) 10 mg/dL (Neg-Trace); RBC/HPF 0-3 HPF (0-3); Specific Gravity, Urine 1.017 (1.002-1.036); Urobilinogen Normal mg/dL (Less than 2); WBC/HPF 0-3 HPF (0-3)
[2021-12-28 08:37] LABS: Bacteria/HPF 1+ HPF (None Seen)
[2021-12-28 09:03] LABS: Hemoglobin 10.1 g/dL (12.0-16.0); Mean Corpuscular HGB CONC 31.6 g/dL (32.0-36.0); Mean Corpuscular Hemoglobin 25.7 pg (27.0-31.0); Mean Corpuscular Volume 81.2 fL (78.0-98.0); Mean Platelet Volume 11.2 fL (7.4-10.4); Platelet Count 160 thou/uL (130-400); RBC Distribution Width 18.7 % (11.5-14.5); Red Blood Cell (RBC) Count 3.94 mill/uL (4.20-5.40)
[2021-12-28 09:11] LABS: BHCG - Serum Negative (NEGATIVE); Pregs Control Background? CLEAR/WHITE (CLR/WHITE); Pregs Control Bar Appear? YES (CONTROL BAR)
[2021-12-28 09:14] LABS: Acetaminophen Less than 10.0 mcg/mL (10.0-30.0); Alcohol Less than 10 mg/dL (Less than 10); Salicylate Less than 8.0 mg/dL (15.0-30.0)
[2021-12-28 09:23] LABS: ALT (SGPT) 39 U/L (8-55); AST (SGOT) 121 U/L (5-34); Albumin 2.9 g/dL (3.5-5.0); Alkaline Phosphatase 196 U/L (40-110); Anion Gap 16 mmol/L (10-20); BUN (Urea Nitrogen) 11 mg/dL (7.0-18.7); Bilirubin, Total 1.8 mg/dL (0.2-1.2); Calc. Creatinine Clearance 0 mL/min (70-130); Calcium 8.9 mg/dL (7.8-10.44); Carbon Dioxide 19 mmol/L (22-29); Chloride 110 mmol/L (98-107); Estimated GFR 109; Globulin 4.7 g/dL (2.4-3.5); Glucose 125 mg/dL (70-105); Potassium 3.4 mmol/L (3.5-5.1); Protein, Total 7.6 g/dL (6.0-8.3); Sodium 142 mmol/L (136-145)
[2021-12-28 09:24] LABS: Eosinophils 6 % (0-10); Hypochromia SLIGHT = 6-15 cells (100X) (0-5/hpf); Large Platelets SLIGHT; Lymphocytes 21 % (21-51); MDiff Complete? YES; Monocytes 14 % (0-10); Neutrophil 57 % (42-75); Platelet Morphology Comment Appears Adequate; Polychromasia SLIGHT = 2-3 cells (100X) (0-2/hpf); Reactive Lymphocytes 1 % (0-10); Target Cells MODERATE= 6-15 cells (100X) (0-1/hpf); Tear Drops SLIGHT = 2-5 cells (100X) (0-1/hpf)
[2021-12-28 09:37] LABS: SARS-CoV-2 NAA Rapid Test Not Detected (NotDetected)
[2021-12-28 09:42] LABS: CKMB 10.1 ng/mL (0-6.6)
[2021-12-28 09:48] LABS: Amphetamine Not Detected (NotDetected); Barbiturates Screen Not Detected (NotDetected); Benzodiazepine Screen Not Detected (NotDetected); Cocaine Metabolite Screen Not Detected (NotDetected); Methadone Not Detected (NotDetected); Methamphetamine Not Detected (NotDetected); Opiate Screen Not Detected (NotDetected); Oxycodone Screen Not Detected (NotDetected); Phencyclidine (PCP) Not Detected (NotDetected); THC/Cannabinoid Screen Not Detected (NotDetected); Tricyclic Screen Not Detected (NotDetected)
[2021-12-28] MEDS ORDERED: Acetaminophen 325 MG TAB PO PRN (10:51)
[2021-12-28] MEDS ORDERED: Rifaximin 550 MG TAB PO SCH (11:45)
[2021-12-28 12:23] LABS: Troponin I 0.042 ng/mL (< 0.028)
[2021-12-28 15:43] VITALS: BMI 29.2
[2021-12-28 16:03] LABS: Troponin I 0.023 ng/mL (< 0.028)
[2021-12-28] MEDS: Rifaximin 550 MG TAB PO SCH (20:57)
[2021-12-29] MEDS: Ondansetron PF 4 MG/2 ML Vial IVP PRN ×2 (01:57→13:11)
[2021-12-29 05:02] LABS: Anion Gap 11 mmol/L (10-20); BUN (Urea Nitrogen) 10 mg/dL (7.0-18.7); Calc. Creatinine Clearance 127 mL/min (70-130); Calcium 8.9 mg/dL (7.8-10.44); Carbon Dioxide 22 mmol/L (22-29); Chloride 112 mmol/L (98-107); Estimated GFR 108; Glucose 118 mg/dL (70-105); Potassium 3.2 mmol/L (3.5-5.1); Sodium 142 mmol/L (136-145)
[2021-12-29 05:29] LABS: #Basophils 0.1 thou/uL (0.0-0.2); #Eosinphils 0.2 thou/uL (0.0-0.7); #Lymphocytes 2.1 thou/uL (1.20-3.40); #Monocytes 1.1 thou/uL (0.11-0.59); #Neutrophils 4.8 thou/uL (1.40-6.50); %Basophils 0.9 % (0.0-1.0); %Eosinophils 2.6 % (0.0-10.0); %Lymphocytes 25.4 % (21.0-51.0); %Monocytes 13.5 % (0.0-10.0); %Neutrophils 57.6 % (42.0-75.0); Hemoglobin 8.8 g/dL (12.0-16.0); Mean Corpuscular Hemoglobin 25.2 pg (27.0-31.0); Mean Corpuscular Volume 81.3 fL (78.0-98.0); Mean Platelet Volume 12.1 fL (7.4-10.4); Platelet Count 149 thou/uL (130-400); Platelet Morphology Comment Appears Adequate; RBC Distribution Width 18.8 % (11.5-14.5); RBC Morphology Normal; Red Blood Cell (RBC) Count 3.48 mill/uL (4.20-5.40); White Blood Cell (WBC) Count 8.3 thou/uL (4.8-10.8)
[2021-12-29] MEDS ORDERED: Potassium Chloride 20 MEQ TAB PO SCH (09:00)
[2021-12-29] MEDS: Aspirin 81 mg Enteric Coated Tablet PO SCH (09:37)
[2021-12-29] MEDS: Rifaximin 550 MG TAB PO SCH ×2 (09:37→20:27)
[2021-12-30] MEDS: Aspirin 81 mg Enteric Coated Tablet PO SCH (08:04)
[2021-12-30] MEDS: Rifaximin 550 MG TAB PO SCH ×2 (08:12→21:05)
[2021-12-30 09:54] LABS: Hemoglobin 9.1 g/dL (12.0-16.0); Mean Corpuscular HGB CONC 30.8 g/dL (32.0-36.0); Mean Platelet Volume 10.8 fL (7.4-10.4); Platelet Count 152 thou/uL (130-400); RBC Distribution Width 18.7 % (11.5-14.5); Red Blood Cell (RBC) Count 3.66 mill/uL (4.20-5.40); White Blood Cell (WBC) Count 7.1 thou/uL (4.8-10.8)
[2021-12-30 10:18] LABS: Phosphorus 3.5 mg/dL (2.3-4.7)
[2021-12-30 10:20] LABS: ALT (SGPT) 36 U/L (8-55); AST (SGOT) 108 U/L (5-34); Albumin 2.7 g/dL (3.5-5.0); Alkaline Phosphatase 186 U/L (40-110); Anion Gap 15 mmol/L (10-20); BUN (Urea Nitrogen) 6 mg/dL (7.0-18.7); Bilirubin, Total 1.3 mg/dL (0.2-1.2); Calc. Creatinine Clearance 115 mL/min (70-130); Calcium 8.5 mg/dL (7.8-10.44); Carbon Dioxide 19 mmol/L (22-29); Chloride 105 mmol/L (98-107); Estimated GFR 102; Globulin 4.3 g/dL (2.4-3.5); Glucose 162 mg/dL (70-105); Magnesium 1.4 mg/dL (1.6-2.6); Potassium 3.2 mmol/L (3.5-5.1); Sodium 136 mmol/L (136-145)
[2021-12-30] MEDS ORDERED: Magnesium Sulfate In Water 4 GM in Premix Bag 1 BAG IVPB SCH (11:00)
[2021-12-30 11:33] LABS: Band 1 % (5-11); Eosinophils 3 % (0-10); Hypochromia SLIGHT = 6-15 cells (100X) (0-5/hpf); Lymphocytes 32 % (21-51); MDiff Complete? YES; Monocytes 15 % (0-10); Neutrophil 49 % (42-75); Platelet Morphology Comment Appears Adequate; Polychromasia SLIGHT = 2-3 cells (100X) (0-2/hpf)
[2021-12-30] MEDS: Potassium Citrate 10 MEQ TAB PO SCH ×2 (12:00→14:42)
[2021-12-30] MEDS ORDERED: Dextrose 50% Abboject 50 ML SYRINGE SLOW IVP PRN (15:46)
[2021-12-30] MEDS ORDERED: Insulin Regular 300 UNITS/3 ML VIAL SC PRN ×2 (15:46)
[2021-12-30] MEDS ORDERED: Dextrose 5% in Water 1,000 ML IV PRN (15:46)
[2021-12-30] MEDS ORDERED: Electrolyte Replacement Protocol 1 EACH FS SCH (16:00)
[2021-12-30] MEDS ORDERED: Thiamine 100 MG TAB PO SCH (21:00)
[2021-12-30] MEDS ORDERED: Multivit, Therapeutic 1 TAB PO SCH (21:00)
[2021-12-30] MEDS ORDERED: Folic Acid 1 MG TAB PO SCH (21:00)
[2021-12-31 05:36] VITALS: TEMP 98.4
[2021-12-31 06:47] LABS: #Basophils 0.1 thou/uL (0.0-0.2); #Eosinphils 0.4 thou/uL (0.0-0.7); #Neutrophils 2.6 thou/uL (1.40-6.50); %Basophils 1.4 % (0.0-1.0); %Eosinophils 5.8 % (0.0-10.0); %Monocytes 14.6 % (0.0-10.0); %Neutrophils 36.3 % (42.0-75.0); Hemoglobin 10.1 g/dL (12.0-16.0); Mean Corpuscular HGB CONC 31.7 g/dL (32.0-36.0); Mean Corpuscular Hemoglobin 25.7 pg (27.0-31.0); Mean Corpuscular Volume 81.1 fL (78.0-98.0); Mean Platelet Volume 11.3 fL (7.4-10.4); Platelet Count 164 thou/uL (130-400); RBC Distribution Width 18.8 % (11.5-14.5); Red Blood Cell (RBC) Count 3.93 mill/uL (4.20-5.40); White Blood Cell (WBC) Count 7.1 thou/uL (4.8-10.8)
[2021-12-31 06:49] LABS: ALT (SGPT) 40 U/L (8-55); AST (SGOT) 108 U/L (5-34); Albumin 2.9 g/dL (3.5-5.0); Alkaline Phosphatase 234 U/L (40-110); Anion Gap 11 mmol/L (10-20); BUN (Urea Nitrogen) 4 mg/dL (7.0-18.7); Bilirubin, Total 1.2 mg/dL (0.2-1.2); Calc. Creatinine Clearance 115 mL/min (70-130); Calcium 8.8 mg/dL (7.8-10.44); Carbon Dioxide 25 mmol/L (22-29); Chloride 105 mmol/L (98-107); Estimated GFR 102; Globulin 4.6 g/dL (2.4-3.5); Glucose 153 mg/dL (70-105); Magnesium 1.5 mg/dL (1.6-2.6); Phosphorus 3.7 mg/dL (2.3-4.7); Potassium 3.4 mmol/L (3.5-5.1); Protein, Total 7.5 g/dL (6.0-8.3); Sodium 138 mmol/L (136-145)
[2021-12-31] MEDS ORDERED: Potassium Chloride 20 MEQ TAB PO SCH (08:00)
[2021-12-31] MEDS ORDERED: Magnesium 2 GM/50 ML(in water) 2 GM in Premix Bag 1 BAG IVPB SCH (08:00)
[2021-12-31] MEDS: Rifaximin 550 MG TAB PO SCH (08:03)
[2021-12-31] MEDS ORDERED: Magnesium Sulfate 4 GM in Sodium Chloride 0.9% 250 ML 250 ML IVPB SCH (08:30)
[2021-12-31 08:56] VITALS: BP 134/76
[2021-12-31] MEDS ORDERED: Magnesium Sulfate In Water 4 GM in Premix Bag 1 BAG IVPB SCH (09:00)
== END 2021-12-31 16:43 | disposition home or self-care (01) | DRG 441 ==
LOC: ERS 07:36 → EEVIPCON 10:41 → ERHOLD 10:41 → 2NO 15:51 → T4-A 12-30 19:55
PROVIDERS: ADMIT Internal Medicine; ATTEND Internal Medicine
DX: K72.00 Acute and subacute hepatic failure without coma (principal); G93.41 Metabolic encephalopathy; E44.0 Moderate protein-calorie malnutrition; F17.210 Nicotine dependence, cigarettes, uncomplicated; Z20.822 Contact with and (suspected) exposure to COVID-19; K70.30 Alcoholic cirrhosis of liver without ascites; J44.9 Chronic obstructive pulmonary disease, unspecified; E11.9 Type 2 diabetes mellitus without complications; E87.6 Hypokalemia; E83.42 Hypomagnesemia; F31.9 Bipolar disorder, unspecified; F10.20 Alcohol dependence, uncomplicated; Z90.710 Acquired absence of both cervix and uterus; Z68.29 Body mass index [BMI] 29.0-29.9, adult; Z88.0 Allergy status to penicillin; Z79.899 Other long term (current) drug therapy; Z98.51 Tubal ligation status; Z91.14 Patient's other noncompliance with medication regimen
CPT/HCPCS: 36415; 36416; 71045; 76705; 80048; 80053; 80306; 80307; 81003; 81015; 82140; 82553; 83735; 84100; 84484; 84703; 85025; 87040; 87086; 93005; J1815; J2405; J3475

== ENCOUNTER 2021-12-31 19:38 | Inpatient (IN) | payer SELFPAY ==
[~2021-12-31 19:38] MED LIST: ISOVUE-370 76%-LOCM 1 ML ONE
[2021-12-31 20:14] LABS: Hemoglobin 8.8 g/dL (12.0-16.0); Mean Corpuscular HGB CONC 31.4 g/dL (32.0-36.0); Mean Corpuscular Hemoglobin 25.7 pg (27.0-31.0); Mean Corpuscular Volume 81.7 fL (78.0-98.0); Mean Platelet Volume 10.4 fL (7.4-10.4); Platelet Count 153 thou/uL (130-400); RBC Distribution Width 18.5 % (11.5-14.5); Red Blood Cell (RBC) Count 3.41 mill/uL (4.20-5.40); White Blood Cell (WBC) Count 7.4 thou/uL (4.8-10.8)
[2021-12-31 20:26] LABS: Bacteria/HPF None Seen HPF (None Seen); Bilirubin Negative (Negative); Blood, Urine 2+ (Negative); Clarity Clear (Clear); Glucose, Urine (Dipstick) Normal (Negative); Ketone, Urine 10 mg/dL (Negative); Leukocyte 75 Leu/uL (Negative); Nitrite Negative (Negative); Protein, Urine (Dipstick) 20 mg/dL (Neg-Trace); Specific Gravity, Urine 1.021 (1.002-1.036); Squamous Epithelial 0-3 HPF (0-3); Urobilinogen Normal mg/dL (Less than 2); pH, Urine 6.5 (5.0-9.0)
[2021-12-31 20:31] LABS: ALT (SGPT) 37 U/L (8-55); AST (SGOT) 101 U/L (5-34); Albumin 2.7 g/dL (3.5-5.0); Alkaline Phosphatase 197 U/L (40-110); Anion Gap 12 mmol/L (10-20); BUN (Urea Nitrogen) 6 mg/dL (7.0-18.7); Bilirubin, Total 1.3 mg/dL (0.2-1.2); Calc. Creatinine Clearance 0 mL/min (70-130); Calcium 8.5 mg/dL (7.8-10.44); Carbon Dioxide 22 mmol/L (22-29); Chloride 106 mmol/L (98-107); Estimated GFR 93; Glucose 89 mg/dL (70-105); Potassium 3.2 mmol/L (3.5-5.1); Protein, Total 6.7 g/dL (6.0-8.3); Sodium 137 mmol/L (136-145)
[2021-12-31] MEDS ORDERED: Cefepime 2 GM VIAL ONE (20:36)
[2021-12-31 20:43] LABS: Actual Bicarbonate (HCO3v) 22 mEq/L (22-28); Analyzer IN Cardio ER; Anisocytosis SLIGHT = 6-15 cells (100X) (0-5/hpf); Band 3 % (5-11); Base Excess -0.4 mEq/L (-2.0 to +3.0); Calcium, Ionized (venous) 1.02 mmol/L (1.16-1.32); Chloride (VBG) 106 mmol/L (98-106); Elliptocytes SLIGHT = 2-5 cells (100X) (0-1/hpf); Eosinophils 4 % (0-10); Hemoglobin (Hb) 9.6 g/dL (11.7-16.0); Hypochromia SLIGHT = 6-15 cells (100X) (0-5/hpf); Lymphocytes 37 % (21-51); MDiff Complete? YES; Monocytes 6 % (0-10); Neutrophil 45 % (42-75); Nucleated RBC 1 % (0); Platelet Morphology Comment Appears Adequate; Polychromasia SLIGHT = 2-3 cells (100X) (0-2/hpf); Potassium (VBG) 3.14 mmol/L (3.70-5.30); Reflex for Review?? NO; Schistocytes SLIGHT = 2-5 cells (100X) (0-1/hpf); Sodium 133.3 mmol/L (133-146); Target Cells MODERATE= 6-15 cells (100X) (0-1/hpf); Tear Drops SLIGHT = 2-5 cells (100X) (0-1/hpf); Toxic Granulation SLIGHT; pH (venous) 7.53 (7.32-7.43)
[2021-12-31] MEDS ORDERED: Vancomycin 1.5 GRAM/300 ML BAG 1.5 GM in Premix Bag 1 BAG IVPB SCH (20:45)
[2021-12-31 20:55] LABS: CKMB 5.3 ng/mL (0-6.6)
[2021-12-31 21:07] LABS: SARS-CoV-2 NAA Rapid Test Not Detected (NotDetected)
[2021-12-31] MEDS ORDERED: Senokot S 8.6-50 MG TAB PO PRN (23:21)
[2021-12-31] MEDS ORDERED: Calcium Carbonate 500 MG ChewTAB PO PRN (23:21)
[2021-12-31] MEDS ORDERED: Bisacodyl 5 MG TAB PO PRN (23:21)
[2021-12-31] MEDS ORDERED: Loperamide HCl 2 MG CAP PO PRN (23:21)
[2021-12-31] MEDS ORDERED: Bisacodyl 10 MG SUPP PR PRN (23:21)
[2021-12-31] MEDS ORDERED: Ondansetron PF 4 MG/2 ML Vial IVP PRN (23:21)
[2021-12-31 23:24] LABS: Troponin I 0.081 ng/mL (< 0.028)
[2022-01-01 00:30] VITALS: BMI 30.7
[2022-01-01 02:24] LABS: Troponin I 0.071 ng/mL (< 0.028)
[2022-01-01 04:47] LABS: #Basophils 0.1 thou/uL (0.0-0.2); #Eosinphils 0.1 thou/uL (0.0-0.7); #Monocytes 1.3 thou/uL (0.11-0.59); #Neutrophils 4.3 thou/uL (1.40-6.50); %Basophils 0.8 % (0.0-1.0); %Eosinophils 1.5 % (0.0-10.0); %Lymphocytes 33.8 % (21.0-51.0); %Monocytes 14.6 % (0.0-10.0); %Neutrophils 49.4 % (42.0-75.0); Hemoglobin 8.3 g/dL (12.0-16.0); Mean Corpuscular HGB CONC 32.2 g/dL (32.0-36.0); Mean Corpuscular Hemoglobin 26.3 pg (27.0-31.0); Mean Corpuscular Volume 81.7 fL (78.0-98.0); Mean Platelet Volume 10.2 fL (7.4-10.4); Platelet Count 137 thou/uL (130-400); RBC Distribution Width 18.6 % (11.5-14.5); Red Blood Cell (RBC) Count 3.16 mill/uL (4.20-5.40); White Blood Cell (WBC) Count 8.8 thou/uL (4.8-10.8)
[2022-01-01 05:07] LABS: ALT (SGPT) 32 U/L (8-55); AST (SGOT) 86 U/L (5-34); Albumin 2.4 g/dL (3.5-5.0); Alkaline Phosphatase 150 U/L (40-110); Anion Gap 12 mmol/L (10-20); BUN (Urea Nitrogen) 6 mg/dL (7.0-18.7); Bilirubin, Total 1.9 mg/dL (0.2-1.2); Calc. Creatinine Clearance 133 mL/min (70-130); Carbon Dioxide 19 mmol/L (22-29); Chloride 106 mmol/L (98-107); Estimated GFR 108; Globulin 3.5 g/dL (2.4-3.5); Glucose 122 mg/dL (70-105); Potassium 3.4 mmol/L (3.5-5.1); Protein, Total 5.9 g/dL (6.0-8.3); Sodium 134 mmol/L (136-145)
[2022-01-01] MEDS ORDERED: Ondansetron ODT 4 MG TAB PO PRN (07:37)
[2022-01-01] MEDS ORDERED: Lorazepam 2 MG/ML VIAL IM PRN (07:37)
[2022-01-01] MEDS ORDERED: Lorazepam 1 MG TAB PO PRN (07:37)
[2022-01-01] MEDS ORDERED: Potassium Chloride 20 MEQ TAB PO SCH (07:45)
[2022-01-01] MEDS ORDERED: Thiamine HCl 200 MG/2 ML VIAL SLOW IVP SCH (07:45)
[2022-01-01] MEDS ORDERED: Electrolyte Replacement Protocol 1 EACH FS SCH (07:45)
[2022-01-01] MEDS ORDERED: Rifaximin 550 MG TAB PO SCH (09:00)
[2022-01-01] MEDS ORDERED: Folic Acid 1 MG TAB PO SCH ×2 (09:00→21:00)
[2022-01-01] MEDS ORDERED: Multivit, Therapeutic 1 TAB PO SCH ×2 (09:00→21:00)
[2022-01-01] MEDS: Lorazepam 1 MG TAB PO SCH ×2 (10:54→16:06)
[2022-01-01 16:10] VITALS: BP 133/65; TEMP 98
[2022-01-01] MEDS ORDERED: Thiamine 100 MG TAB PO SCH (21:00)
[2022-01-02] MEDS ORDERED: Lorazepam 1 MG TAB PO PRN (07:37)
[2022-01-03] MEDS ORDERED: Lorazepam 1 MG TAB PO PRN (07:37)
[2022-01-03] MEDS ORDERED: Lorazepam 0.5 MG TAB PO SCH (07:45)
[2022-01-04] MEDS ORDERED: Lorazepam 0.5 MG TAB PO PRN (07:37)
[2022-01-04] MEDS ORDERED: Thiamine 100 MG TAB PO SCH (09:00)
== END 2022-01-01 16:31 | disposition home or self-care (01) | DRG 441 ==
LOC: ERS 19:38 → 2NO 22:34
PROVIDERS: ADMIT Internal Medicine; ATTEND Internal Medicine
DX: K72.00 Acute and subacute hepatic failure without coma (principal); I21.A1 Myocardial infarction type 2; F31.9 Bipolar disorder, unspecified; F17.210 Nicotine dependence, cigarettes, uncomplicated; K74.60 Unspecified cirrhosis of liver; E87.6 Hypokalemia; D63.8 Anemia in other chronic diseases classified elsewhere; F10.20 Alcohol dependence, uncomplicated; F19.10 Other psychoactive substance abuse, uncomplicated; Z20.822 Contact with and (suspected) exposure to COVID-19; Z90.710 Acquired absence of both cervix and uterus; Z98.51 Tubal ligation status; Z88.0 Allergy status to penicillin; Z88.8 Allergy status to other drugs, medicaments and biological substances; Z79.899 Other long term (current) drug therapy; Z91.19 Patient's noncompliance with other medical treatment and regimen
CPT/HCPCS: 36415; 36416; 70450; 71045; 74177; 80053; 81003; 81015; 82140; 82553; 82805; 83605; 84443; 84484; 85025; 86850; 86900; 86901; 87040; 87086; 93005; J0692; J3370; J3411; Q9966; U0002

== ENCOUNTER 2022-01-04 18:33 | Inpatient (IN) | payer OTHER, SELFPAY ==
[2022-01-04 19:16] LABS: Hemoglobin 8.4 g/dL (12.0-16.0); Mean Corpuscular Hemoglobin 26.3 pg (27.0-31.0); Mean Corpuscular Volume 82.1 fL (78.0-98.0); Mean Platelet Volume 10.4 fL (7.4-10.4); Platelet Count 156 thou/uL (130-400); RBC Distribution Width 18.7 % (11.5-14.5); Red Blood Cell (RBC) Count 3.19 mill/uL (4.20-5.40); White Blood Cell (WBC) Count 5.1 thou/uL (4.8-10.8)
[2022-01-04 19:31] LABS: Anisocytosis SLIGHT = 6-15 cells (100X) (0-5/hpf); Eosinophils 3 % (0-10); Hypochromia SLIGHT = 6-15 cells (100X) (0-5/hpf); Lymphocytes 38 % (21-51); MDiff Complete? YES; Monocytes 12 % (0-10); Neutrophil 45 % (42-75); Ovalocytes SLIGHT = 2-5 cells (100X) (0-1/hpf); Platelet Morphology Comment Appears Adequate; Polychromasia SLIGHT = 2-3 cells (100X) (0-2/hpf)
[2022-01-04 19:39] LABS: ALT (SGPT) 39 U/L (8-55); AST (SGOT) 117 U/L (5-34); Albumin 2.6 g/dL (3.5-5.0); Alkaline Phosphatase 154 U/L (40-110); Anion Gap 15 mmol/L (10-20); BUN (Urea Nitrogen) 6 mg/dL (7.0-18.7); Bilirubin, Total 1.6 mg/dL (0.2-1.2); Calc. Creatinine Clearance 0 mL/min (70-130); Carbon Dioxide 20 mmol/L (22-29); Chloride 109 mmol/L (98-107); Estimated GFR 108; Globulin 3.8 g/dL (2.4-3.5); Glucose 84 mg/dL (70-105); Potassium 3.7 mmol/L (3.5-5.1); Protein, Total 6.4 g/dL (6.0-8.3); Sodium 140 mmol/L (136-145)
[2022-01-04 19:40] LABS: Acetaminophen Less than 10.0 mcg/mL (10.0-30.0); Alcohol 119 mg/dL (Less than 10); CK (CPK) 1145 U/L (29-168); Salicylate Less than 8.0 mg/dL (15.0-30.0)
[2022-01-04 20:02] LABS: CKMB 4.1 ng/mL (0-6.6)
[2022-01-04 20:06] LABS: Amphetamine Not Detected (NotDetected); Barbiturates Screen Not Detected (NotDetected); Benzodiazepine Screen Not Detected (NotDetected); Cocaine Metabolite Screen Not Detected (NotDetected); Methadone Not Detected (NotDetected); Methamphetamine Not Detected (NotDetected); Opiate Screen Not Detected (NotDetected); Oxycodone Screen Not Detected (NotDetected); Phencyclidine (PCP) Not Detected (NotDetected); THC/Cannabinoid Screen Not Detected (NotDetected); Tricyclic Screen Not Detected (NotDetected)
[2022-01-04] MEDS ORDERED: Aspirin 300 MG Suppository ONE (20:15)
[2022-01-04] MEDS ORDERED: Lactulose 10 GM/15 ML Oral Solution PR SCH (21:00)
[2022-01-04] MEDS ORDERED: Ondansetron PF 4 MG/2 ML Vial IVP PRN (21:48)
[2022-01-04] MEDS ORDERED: Acetaminophen 325 MG TAB PO PRN (21:48)
[2022-01-04] MEDS ORDERED: Dextrose 5% in Water 1,000 ML IV PRN (22:04)
[2022-01-04] MEDS ORDERED: HumaLOG 300 UNITS/3 ML VIAL SC PRN (22:04)
[2022-01-04] MEDS ORDERED: Dextrose 50% Abboject 50 ML SYRINGE SLOW IVP PRN (22:04)
[2022-01-04] MEDS ORDERED: Cefepime 2 GM VIAL ONE (22:15)
[2022-01-04] MEDS ORDERED: Vancomycin 1.5 GRAM/300 ML BAG 1.5 GM in Premix Bag 1 BAG IVPB SCH (22:30)
[2022-01-04 22:38] LABS: Troponin I 0.029 ng/mL (< 0.028)
[2022-01-04 23:32] LABS: SARS-CoV-2 NAA Rapid Test Not Detected (NotDetected)
[2022-01-05 01:19] VITALS: BMI 29.5
[2022-01-05 01:54] LABS: Troponin I 0.027 ng/mL (< 0.028)
[2022-01-05 03:33] LABS: Bacteria/HPF None Seen HPF (None Seen); Bilirubin Negative (Negative); Blood, Urine 1+ (Negative); Clarity Clear (Clear); Glucose, Urine (Dipstick) Normal (Negative); Ketone, Urine Trace mg/dL (Negative); Leukocyte Negative Leu/uL (Negative); Nitrite Negative (Negative); Protein, Urine (Dipstick) 10 mg/dL (Neg-Trace); RBC/HPF 0-3 HPF (0-3); Specific Gravity, Urine 1.019 (1.002-1.036); Squamous Epithelial 0-3 HPF (0-3); WBC/HPF 0-3 HPF (0-3)
[2022-01-05 03:34] LABS: Urine Culture Reflex No No
[2022-01-05 06:46] LABS: Anion Gap 12 mmol/L (10-20); BUN (Urea Nitrogen) 7 mg/dL (7.0-18.7); CK (CPK) 744 U/L (29-168); Calc. Creatinine Clearance 134 mL/min (70-130); Calcium 8.1 mg/dL (7.8-10.44); Carbon Dioxide 22 mmol/L (22-29); Chloride 110 mmol/L (98-107); Estimated GFR 109; Glucose 77 mg/dL (70-105); Potassium 3.3 mmol/L (3.5-5.1); Sodium 141 mmol/L (136-145)
[2022-01-05 07:09] LABS: Hemoglobin 8.3 g/dL (12.0-16.0); Mean Corpuscular HGB CONC 30.9 g/dL (32.0-36.0); Mean Corpuscular Hemoglobin 25.8 pg (27.0-31.0); Mean Corpuscular Volume 83.6 fL (78.0-98.0); Mean Platelet Volume 10.8 fL (7.4-10.4); Platelet Count 139 thou/uL (130-400); RBC Distribution Width 18.8 % (11.5-14.5); Red Blood Cell (RBC) Count 3.23 mill/uL (4.20-5.40); White Blood Cell (WBC) Count 4.8 thou/uL (4.8-10.8)
[2022-01-05] MEDS: Enoxaparin Sodium 40 MG/0.4 ML SYRINGE SC SCH (08:39)
[2022-01-05] MEDS: Rifaximin 550 MG TAB PO SCH ×2 (08:40→21:20)
[2022-01-05 11:25] LABS: Eosinophils 7 % (0-10); Hypochromia SLIGHT = 6-15 cells (100X) (0-5/hpf); Lymphocytes 51 % (21-51); MDiff Complete? YES; Monocytes 15 % (0-10); Neutrophil 25 % (42-75); Platelet Morphology Comment Appears Adequate; Polychromasia SLIGHT = 2-3 cells (100X) (0-2/hpf)
[2022-01-05] MEDS: cefTRIAXone\\ROCEPHIN 1 GM in Sodium Chloride 0.9% 100 ML IVPB SCH (17:43)
[2022-01-05] MEDS: Thiamine 100 MG TAB PO SCH (21:20)
[2022-01-05] MEDS: Folic Acid 1 MG TAB PO SCH (21:20)
[2022-01-05] MEDS: Multivit, Therapeutic 1 TAB PO SCH (21:20)
[2022-01-06 03:51] LABS: INR-International Normal Ratio 1.5; PTT 39.9 sec (22.9-36.1); Prothrombin Time 18.8 sec (12.0-14.7)
[2022-01-06 04:04] LABS: Anion Gap 11 mmol/L (10-20); BUN (Urea Nitrogen) 5 mg/dL (7.0-18.7); Calc. Creatinine Clearance 124 mL/min (70-130); Calcium 8.3 mg/dL (7.8-10.44); Carbon Dioxide 23 mmol/L (22-29); Chloride 108 mmol/L (98-107); Estimated GFR 105; Glucose 114 mg/dL (70-105); Potassium 3.5 mmol/L (3.5-5.1); Sodium 138 mmol/L (136-145)
[2022-01-06 04:11] LABS: Eosinophils 5 % (0-10); Hypochromia SLIGHT = 6-15 cells (100X) (0-5/hpf); Lymphocytes 33 % (21-51); MDiff Complete? YES; Mean Corpuscular HGB CONC 30.2 g/dL (32.0-36.0); Mean Corpuscular Hemoglobin 25.6 pg (27.0-31.0); Mean Corpuscular Volume 84.7 fL (78.0-98.0); Mean Platelet Volume 10.9 fL (7.4-10.4); Neutrophil 62 % (42-75); Platelet Count 140 thou/uL (130-400); RBC Distribution Width 18.5 % (11.5-14.5); Red Blood Cell (RBC) Count 3.12 mill/uL (4.20-5.40); White Blood Cell (WBC) Count 5.2 thou/uL (4.8-10.8)
[2022-01-06] MEDS: Rifaximin 550 MG TAB PO SCH ×2 (09:00→21:03)
[2022-01-06] MEDS: Enoxaparin Sodium 40 MG/0.4 ML SYRINGE SC SCH (09:00)
[2022-01-06] MEDS: cefTRIAXone\\ROCEPHIN 1 GM in Sodium Chloride 0.9% 100 ML IVPB SCH (16:29)
[2022-01-06] MEDS: Folic Acid 1 MG TAB PO SCH (21:03)
[2022-01-06] MEDS: Thiamine 100 MG TAB PO SCH (21:03)
[2022-01-06] MEDS: Multivit, Therapeutic 1 TAB PO SCH (21:03)
[2022-01-07 06:16] LABS: #Basophils 0.1 thou/uL (0.0-0.2); #Eosinphils 0.4 thou/uL (0.0-0.7); #Monocytes 0.8 thou/uL (0.11-0.59); #Neutrophils 2.8 thou/uL (1.40-6.50); %Lymphocytes 32.7 % (21.0-51.0); %Monocytes 13.8 % (0.0-10.0); %Neutrophils 46.6 % (42.0-75.0); Hemoglobin 8.9 g/dL (12.0-16.0); Mean Corpuscular HGB CONC 30.6 g/dL (32.0-36.0); Mean Corpuscular Hemoglobin 24.9 pg (27.0-31.0); Mean Corpuscular Volume 81.2 fL (78.0-98.0); Mean Platelet Volume 11.1 fL (7.4-10.4); Platelet Count 145 thou/uL (130-400); RBC Distribution Width 18.5 % (11.5-14.5); Red Blood Cell (RBC) Count 3.58 mill/uL (4.20-5.40)
[2022-01-07 06:37] LABS: Anion Gap 13 mmol/L (10-20); BUN (Urea Nitrogen) 5 mg/dL (7.0-18.7); Calc. Creatinine Clearance 123 mL/min (70-130); Calcium 8.9 mg/dL (7.8-10.44); Carbon Dioxide 24 mmol/L (22-29); Chloride 105 mmol/L (98-107); Estimated GFR 104; Glucose 161 mg/dL (70-105); Potassium 3.4 mmol/L (3.5-5.1); Sodium 139 mmol/L (136-145)
[2022-01-07] MEDS: Potassium Chloride 20 MEQ TAB PO SCH (09:42)
[2022-01-07] MEDS: Enoxaparin Sodium 40 MG/0.4 ML SYRINGE SC SCH (09:43)
[2022-01-07] MEDS: Furosemide 20 MG TAB PO SCH ×2 (09:43→14:22)
[2022-01-07] MEDS: Rifaximin 550 MG TAB PO SCH ×2 (09:43→20:37)
[2022-01-07] MEDS: cefTRIAXone\\ROCEPHIN 1 GM in Sodium Chloride 0.9% 100 ML IVPB SCH (16:59)
[2022-01-07] MEDS: Thiamine 100 MG TAB PO SCH (20:37)
[2022-01-07] MEDS: Multivit, Therapeutic 1 TAB PO SCH (20:37)
[2022-01-07] MEDS: Folic Acid 1 MG TAB PO SCH (20:37)
[2022-01-08] MEDS: Rifaximin 550 MG TAB PO SCH ×2 (08:20→20:56)
[2022-01-08] MEDS: Potassium Chloride 20 MEQ TAB PO SCH (08:20)
[2022-01-08] MEDS: Furosemide 20 MG TAB PO SCH ×2 (08:20→14:10)
[2022-01-08] MEDS: Enoxaparin Sodium 40 MG/0.4 ML SYRINGE SC SCH (08:20)
[2022-01-08] MEDS: cefTRIAXone\\ROCEPHIN 1 GM in Sodium Chloride 0.9% 100 ML IVPB SCH (15:50)
[2022-01-08] MEDS: Folic Acid 1 MG TAB PO SCH (20:56)
[2022-01-08] MEDS: Thiamine 100 MG TAB PO SCH (20:56)
[2022-01-08] MEDS: Multivit, Therapeutic 1 TAB PO SCH (20:56)
[2022-01-09] MEDS: Potassium Chloride 20 MEQ TAB PO SCH (11:00)
[2022-01-09] MEDS: Furosemide 20 MG TAB PO SCH ×2 (11:00→15:18)
[2022-01-09] MEDS: Rifaximin 550 MG TAB PO SCH ×2 (11:00→21:28)
[2022-01-09] MEDS: Enoxaparin Sodium 40 MG/0.4 ML SYRINGE SC SCH (11:01)
[2022-01-09] MEDS: cefTRIAXone\\ROCEPHIN 1 GM in Sodium Chloride 0.9% 100 ML IVPB SCH (15:21)
[2022-01-09] MEDS: HumaLOG 300 UNITS/3 ML VIAL SC PRN (17:33)
[2022-01-09] MEDS: Thiamine 100 MG TAB PO SCH (21:28)
[2022-01-09] MEDS: Folic Acid 1 MG TAB PO SCH (21:28)
[2022-01-09] MEDS: Multivit, Therapeutic 1 TAB PO SCH (21:28)
[2022-01-10] MEDS: HumaLOG 300 UNITS/3 ML VIAL SC PRN (06:13)
[2022-01-10] MEDS: Potassium Chloride 20 MEQ TAB PO SCH (08:39)
[2022-01-10] MEDS: Rifaximin 550 MG TAB PO SCH ×2 (08:39→22:23)
[2022-01-10] MEDS: Furosemide 20 MG TAB PO SCH ×2 (08:39→15:58)
[2022-01-10] MEDS: Enoxaparin Sodium 40 MG/0.4 ML SYRINGE SC SCH (08:40)
[2022-01-10] MEDS: cefTRIAXone\\ROCEPHIN 1 GM in Sodium Chloride 0.9% 100 ML IVPB SCH (15:08)
[2022-01-10 21:00] VITALS: TEMP 99
[2022-01-10] MEDS: Thiamine 100 MG TAB PO SCH (22:18)
[2022-01-10] MEDS: Multivit, Therapeutic 1 TAB PO SCH (22:18)
[2022-01-10] MEDS: Folic Acid 1 MG TAB PO SCH (22:22)
[2022-01-11 08:18] VITALS: BP 109/70
[2022-01-11] MEDS: Potassium Chloride 20 MEQ TAB PO SCH (08:54)
[2022-01-11] MEDS: Rifaximin 550 MG TAB PO SCH (08:55)
[2022-01-11] MEDS: Furosemide 20 MG TAB PO SCH ×2 (08:55→16:13)
[2022-01-11] MEDS: Enoxaparin Sodium 40 MG/0.4 ML SYRINGE SC SCH (08:56)
[2022-01-11] MEDS: cefTRIAXone\\ROCEPHIN 1 GM in Sodium Chloride 0.9% 100 ML IVPB SCH (14:49)
== END 2022-01-11 18:07 | disposition left against medical advice (07) | DRG 433 ==
LOC: ERS 18:33 → ERHOLD 20:51 → IMCU/EMU 23:32 → T4-B 01-06 14:51
PROVIDERS: ADMIT Internal Medicine; ATTEND Internal Medicine
PROC: HZ2ZZZZ Detoxification Services for Substance Abuse Treatment (ICD-10-PCS; principal; 2022-01-04)
DX: K70.40 Alcoholic hepatic failure without coma (principal); M62.82 Rhabdomyolysis; Z20.822 Contact with and (suspected) exposure to COVID-19; K70.30 Alcoholic cirrhosis of liver without ascites; E11.9 Type 2 diabetes mellitus without complications; J44.9 Chronic obstructive pulmonary disease, unspecified; F31.9 Bipolar disorder, unspecified; F10.129 Alcohol abuse with intoxication, unspecified; R77.8 Other specified abnormalities of plasma proteins; D63.8 Anemia in other chronic diseases classified elsewhere; F25.9 Schizoaffective disorder, unspecified; Y90.5 Blood alcohol level of 100-119 mg/100 ml; Z88.0 Allergy status to penicillin; Z88.8 Allergy status to other drugs, medicaments and biological substances; Z91.14 Patient's other noncompliance with medication regimen; Z79.899 Other long term (current) drug therapy; Z90.710 Acquired absence of both cervix and uterus; Z98.51 Tubal ligation status; Z98.890 Other specified postprocedural states; Z59.00 Homelessness unspecified
CPT/HCPCS: 36415; 36416; 51701; 70450; 71045; 72125; 80048; 80053; 80306; 80307; 81001; 82140; 82550; 82553; 83605; 84484; 85025; 85610; 85730; 87040; 87077; 87086; 87149; 93005; 93306; 93970; 96361; 96365; J0692; J0696; J1650; J1815; J3370; J3490; U0002

== ENCOUNTER 2022-01-11 21:14 | Emergency (ER) | payer OTHER ==
[2022-01-12 02:19] LABS: Hemoglobin 8.6 g/dL (12.0-16.0); Mean Corpuscular HGB CONC 32.3 g/dL (32.0-36.0); Mean Corpuscular Hemoglobin 25.7 pg (27.0-31.0); Mean Corpuscular Volume 79.5 fL (78.0-98.0); Mean Platelet Volume 11.4 fL (7.4-10.4); Platelet Count 155 thou/uL (130-400); RBC Distribution Width 18.1 % (11.5-14.5); Red Blood Cell (RBC) Count 3.33 mill/uL (4.20-5.40); White Blood Cell (WBC) Count 7.2 thou/uL (4.8-10.8)
[2022-01-12 02:33] LABS: Eosinophils 4 % (0-10); Lymphocytes 40 % (21-51); MDiff Complete? YES; Monocytes 20 % (0-10); Neutrophil 36 % (42-75)
[2022-01-12 02:36] LABS: ALT (SGPT) 29 U/L (8-55); AST (SGOT) 70 U/L (5-34); Albumin 2.7 g/dL (3.5-5.0); Alkaline Phosphatase 213 U/L (40-110); Anion Gap 12 mmol/L (10-20); BUN (Urea Nitrogen) 6 mg/dL (7.0-18.7); Bilirubin, Total 1.3 mg/dL (0.2-1.2); Calc. Creatinine Clearance 0 mL/min (70-130); Calcium 8.5 mg/dL (7.8-10.44); Carbon Dioxide 27 mmol/L (22-29); Chloride 102 mmol/L (98-107); Estimated GFR 90; Globulin 4.2 g/dL (2.4-3.5); Glucose 249 mg/dL (70-105); Protein, Total 6.9 g/dL (6.0-8.3); Sodium 138 mmol/L (136-145)
[2022-01-12] MEDS ORDERED: Potassium Chloride 20 MEQ TAB ONE (03:01)
== END 2022-01-12 03:20 | disposition home or self-care (01) ==
LOC: ERS 21:14
DX: R60.0 Localized edema (principal); E87.6 Hypokalemia; E11.9 Type 2 diabetes mellitus without complications; F17.210 Nicotine dependence, cigarettes, uncomplicated; Z79.899 Other long term (current) drug therapy
CPT/HCPCS: 36415; 80053; 83880; 85025; 99284

== ENCOUNTER 2022-01-12 14:29 | Emergency (ER) | payer OTHER, SELFPAY ==
[2022-01-12 15:43] LABS: #Basophils 0.1 thou/uL (0.0-0.2); #Eosinphils 0.3 thou/uL (0.0-0.7); #Lymphocytes 2.2 thou/uL (1.20-3.40); #Monocytes 0.9 thou/uL (0.11-0.59); #Neutrophils 2.5 thou/uL (1.40-6.50); %Basophils 1.2 % (0.0-1.0); %Eosinophils 4.3 % (0.0-10.0); %Lymphocytes 37.6 % (21.0-51.0); %Monocytes 14.4 % (0.0-10.0); %Neutrophils 42.5 % (42.0-75.0); Hemoglobin 9.1 g/dL (12.0-16.0); Mean Corpuscular HGB CONC 31.7 g/dL (32.0-36.0); Mean Corpuscular Hemoglobin 25.1 pg (27.0-31.0); Mean Corpuscular Volume 79.1 fL (78.0-98.0); Mean Platelet Volume 11.1 fL (7.4-10.4); Platelet Count 165 thou/uL (130-400); RBC Distribution Width 18.1 % (11.5-14.5); Red Blood Cell (RBC) Count 3.61 mill/uL (4.20-5.40)
[2022-01-12 15:56] LABS: Acetaminophen Less than 10.0 mcg/mL (10.0-30.0); Alcohol 36 mg/dL (Less than 10); Salicylate Less than 8.0 mg/dL (15.0-30.0)
[2022-01-12 15:59] LABS: ALT (SGPT) 31 U/L (8-55); AST (SGOT) 78 U/L (5-34); Albumin 2.8 g/dL (3.5-5.0); Alkaline Phosphatase 191 U/L (40-110); Anion Gap 13 mmol/L (10-20); BUN (Urea Nitrogen) 8 mg/dL (7.0-18.7); Bilirubin, Total 1.6 mg/dL (0.2-1.2); CK (CPK) 392 U/L (29-168); Calc. Creatinine Clearance 0 mL/min (70-130); Calcium 8.8 mg/dL (7.8-10.44); Carbon Dioxide 24 mmol/L (22-29); Chloride 104 mmol/L (98-107); Estimated GFR 108; Globulin 4.4 g/dL (2.4-3.5); Glucose 104 mg/dL (70-105); Protein, Total 7.2 g/dL (6.0-8.3); Sodium 138 mmol/L (136-145)
== END 2022-01-12 16:05 | disposition home or self-care (01) ==
LOC: ERS 14:29
DX: R60.0 Localized edema (principal)
CPT/HCPCS: 80307; 82550; 84443; 93005; 94760

== ENCOUNTER 2022-01-22 16:02 | Inpatient (IN) | payer OTHER ==
[2022-01-22 18:51] LABS: #Basophils 0.1 thou/uL (0.0-0.2); #Eosinphils 0.4 thou/uL (0.0-0.7); #Lymphocytes 2.5 thou/uL (1.20-3.40); #Monocytes 0.6 thou/uL (0.11-0.59); #Neutrophils 2.1 thou/uL (1.40-6.50); %Basophils 1.4 % (0.0-1.0); %Eosinophils 7.4 % (0.0-10.0); %Lymphocytes 43.6 % (21.0-51.0); %Monocytes 11.1 % (0.0-10.0); %Neutrophils 36.6 % (42.0-75.0); Hemoglobin 9.1 g/dL (12.0-16.0); Mean Corpuscular HGB CONC 30.2 g/dL (32.0-36.0); Mean Corpuscular Hemoglobin 24.4 pg (27.0-31.0); Mean Corpuscular Volume 80.5 fL (78.0-98.0); Mean Platelet Volume 10.8 fL (7.4-10.4); Platelet Count 140 thou/uL (130-400); RBC Distribution Width 18.9 % (11.5-14.5); Red Blood Cell (RBC) Count 3.71 mill/uL (4.20-5.40); White Blood Cell (WBC) Count 5.7 thou/uL (4.8-10.8)
[2022-01-22 19:18] LABS: ALT (SGPT) 26 U/L (8-55); AST (SGOT) 92 U/L (5-34); Albumin 2.8 g/dL (3.5-5.0); Alcohol 123 mg/dL (Less than 10); Alkaline Phosphatase 201 U/L (40-110); Anion Gap 13 mmol/L (10-20); BUN (Urea Nitrogen) 4 mg/dL (7.0-18.7); Bilirubin, Total 2.3 mg/dL (0.2-1.2); Calc. Creatinine Clearance 0 mL/min (70-130); Calcium 8.4 mg/dL (7.8-10.44); Carbon Dioxide 21 mmol/L (22-29); Chloride 111 mmol/L (98-107); Estimated GFR 108; Globulin 4.5 g/dL (2.4-3.5); Glucose 78 mg/dL (70-105); Potassium 3.4 mmol/L (3.5-5.1); Protein, Total 7.3 g/dL (6.0-8.3); Sodium 142 mmol/L (136-145)
[2022-01-22 23:38] LABS: Magnesium 1.6 mg/dL (1.6-2.6)
[2022-01-22] MEDS ORDERED: Acetaminophen 325 MG TAB PO PRN (23:47)
[2022-01-22] MEDS ORDERED: Ondansetron PF 4 MG/2 ML Vial IVP PRN (23:47)
[2022-01-23] MEDS ORDERED: Lorazepam 2 MG/ML VIAL IM PRN (01:38)
[2022-01-23] MEDS ORDERED: Lorazepam 1 MG TAB PO PRN ×2 (01:38→21:44)
[2022-01-23] MEDS ORDERED: Ondansetron ODT 4 MG TAB PO PRN ×2 (01:38→21:44)
[2022-01-23] MEDS ORDERED: HumaLOG 300 UNITS/3 ML VIAL SC PRN ×2 (01:41)
[2022-01-23] MEDS ORDERED: Dextrose 50% Abboject 50 ML SYRINGE SLOW IVP PRN (01:41)
[2022-01-23] MEDS ORDERED: Dextrose 5% in Water 1,000 ML IV PRN (01:41)
[2022-01-23] MEDS ORDERED: Electrolyte Replacement Protocol 1 EACH FS SCH (01:45)
[2022-01-23] MEDS ORDERED: Magnesium 2 GM/50 ML(in water) 2 GM in Premix Bag 1 BAG IVPB SCH ×2 (04:00→08:00)
[2022-01-23] MEDS: Thiamine HCl 200 MG/2 ML VIAL SLOW IVP SCH (04:27)
[2022-01-23 04:42] LABS: Hemoglobin A1c 6.7 % (4.0-6.0)
[2022-01-23 04:55] LABS: INR-International Normal Ratio 1.5; Prothrombin Time 18.3 sec (12.0-14.7)
[2022-01-23 04:56] LABS: PTT 40.6 sec (22.9-36.1)
[2022-01-23 04:58] LABS: Anion Gap 12 mmol/L (10-20); BUN (Urea Nitrogen) 4 mg/dL (7.0-18.7); Calc. Creatinine Clearance 121 mL/min (70-130); Calcium 8.6 mg/dL (7.8-10.44); Carbon Dioxide 24 mmol/L (22-29); Chloride 110 mmol/L (98-107); Estimated GFR 108; Glucose 88 mg/dL (70-105); Magnesium 1.5 mg/dL (1.6-2.6); Potassium 3.3 mmol/L (3.5-5.1); Sodium 143 mmol/L (136-145)
[2022-01-23 05:27] LABS: Hemoglobin 9.3 g/dL (12.0-16.0); Mean Corpuscular HGB CONC 30.8 g/dL (32.0-36.0); Mean Corpuscular Hemoglobin 24.1 pg (27.0-31.0); Mean Corpuscular Volume 78.2 fL (78.0-98.0); Mean Platelet Volume 6.1 fL (7.4-10.4); Platelet Count 137 thou/uL (130-400); RBC Distribution Width 18.7 % (11.5-14.5); Red Blood Cell (RBC) Count 3.85 mill/uL (4.20-5.40); White Blood Cell (WBC) Count 5.4 thou/uL (4.8-10.8)
[2022-01-23 05:28] LABS: Band 2 % (5-11); Eosinophils 7 % (0-10); Lymphocytes 33 % (21-51); MDiff Complete? YES; Monocytes 15 % (0-10); Neutrophil 42 % (42-75); Reactive Lymphocytes 1 % (0-10)
[2022-01-23] MEDS: Potassium Chloride 20 MEQ in Premix Bag 1 BAG IVPB SCH ×2 (05:28→08:26)
[2022-01-23] MEDS ORDERED: hydrALAZINE 20 MG/ML VIAL SLOW IVP PRN (06:42)
[2022-01-23 08:12] LABS: Amphetamine Not Detected (NotDetected); Barbiturates Screen Not Detected (NotDetected); Benzodiazepine Screen Not Detected (NotDetected); Cocaine Metabolite Screen Detected (NotDetected); Methadone Not Detected (NotDetected); Methamphetamine Not Detected (NotDetected); Opiate Screen Not Detected (NotDetected); Oxycodone Screen Not Detected (NotDetected); Phencyclidine (PCP) Not Detected (NotDetected); THC/Cannabinoid Screen Not Detected (NotDetected); Tricyclic Screen Not Detected (NotDetected)
[2022-01-23 08:14] LABS: Bacteria/HPF 2+ HPF (None Seen); Bilirubin Negative (Negative); Blood, Urine Negative (Negative); Glucose, Urine (Dipstick) Normal (Negative); Ketone, Urine Negative (Negative); Leukocyte Negative Leu/uL (Negative); Nitrite Negative (Negative); Protein, Urine (Dipstick) Negative (Neg-Trace); RBC/HPF 0-3 HPF (0-3); Specific Gravity, Urine 1.013 (1.002-1.036); Squamous Epithelial 0-3 HPF (0-3); WBC/HPF 0-3 HPF (0-3); pH, Urine 7.5 (5.0-9.0)
[2022-01-23 08:17] LABS: Clarity Cloudy (Clear)
[2022-01-23 08:19] LABS: Urine Culture Reflex Yes Yes
[2022-01-23] MEDS: Multivit, Therapeutic 1 TAB PO SCH (09:36)
[2022-01-23] MEDS: Enoxaparin Sodium 40 MG/0.4 ML SYRINGE SC SCH (09:36)
[2022-01-23] MEDS: Folic Acid 1 MG TAB PO SCH (09:36)
[2022-01-23] MEDS: Furosemide 40 MG TAB PO SCH (09:36)
[2022-01-23] MEDS: Rifaximin 550 MG TAB PO SCH ×2 (09:36→21:13)
[2022-01-23] MEDS: Lorazepam 1 MG TAB PO SCH (22:06)
[2022-01-24] MEDS ORDERED: Lorazepam 1 MG TAB PO PRN ×2 (01:38→21:44)
[2022-01-24] MEDS: Thiamine HCl 200 MG/2 ML VIAL SLOW IVP SCH (03:21)
[2022-01-24] MEDS: Lorazepam 1 MG TAB PO SCH ×3 (03:22→15:23)
[2022-01-24 05:13] LABS: #Basophils 0.1 thou/uL (0.0-0.2); #Eosinphils 0.4 thou/uL (0.0-0.7); #Lymphocytes 2.2 thou/uL (1.20-3.40); #Monocytes 0.8 thou/uL (0.11-0.59); #Neutrophils 3.6 thou/uL (1.40-6.50); %Basophils 0.8 % (0.0-1.0); %Eosinophils 5.1 % (0.0-10.0); %Lymphocytes 31.4 % (21.0-51.0); %Monocytes 11.9 % (0.0-10.0); %Neutrophils 50.8 % (42.0-75.0); Hemoglobin 9.2 g/dL (12.0-16.0); Mean Corpuscular Hemoglobin 24.9 pg (27.0-31.0); Mean Corpuscular Volume 80.3 fL (78.0-98.0); Mean Platelet Volume 11.5 fL (7.4-10.4); Platelet Count 130 thou/uL (130-400); Red Blood Cell (RBC) Count 3.68 mill/uL (4.20-5.40)
[2022-01-24 05:33] LABS: Anion Gap 13 mmol/L (10-20); BUN (Urea Nitrogen) 6 mg/dL (7.0-18.7); Calc. Creatinine Clearance 4 mL/min (70-130); Calcium 8.5 mg/dL (7.8-10.44); Carbon Dioxide 20 mmol/L (22-29); Chloride 108 mmol/L (98-107); Estimated GFR 108; Glucose 108 mg/dL (70-105); Magnesium 1.5 mg/dL (1.6-2.6); Potassium 3.5 mmol/L (3.5-5.1); Sodium 137 mmol/L (136-145)
[2022-01-24 07:09] VITALS: TEMP 98.3
[2022-01-24] MEDS ORDERED: Potassium Chloride 20 MEQ TAB PO SCH (08:00)
[2022-01-24] MEDS ORDERED: Magnesium 2 GM/50 ML(in water) 2 GM in Premix Bag 1 BAG IVPB SCH (08:00)
[2022-01-24] MEDS: Enoxaparin Sodium 40 MG/0.4 ML SYRINGE SC SCH (08:02)
[2022-01-24] MEDS: Furosemide 40 MG TAB PO SCH (08:03)
[2022-01-24] MEDS: Multivit, Therapeutic 1 TAB PO SCH (08:03)
[2022-01-24] MEDS: Folic Acid 1 MG TAB PO SCH (08:03)
[2022-01-24] MEDS: Rifaximin 550 MG TAB PO SCH (08:03)
[2022-01-24 12:26] VITALS: BP 150/93
[2022-01-24 17:53] LABS: Syphilis Antibody Index 14.42 S/CO (<1.00 Non-Reactive)
[2022-01-24 17:54] LABS: Syphilis Antibody INDETERMINATE (Nonreactive)
[2022-01-25] MEDS ORDERED: Lorazepam 1 MG TAB PO PRN ×2 (01:38→21:44)
[2022-01-25] MEDS ORDERED: Lorazepam 0.5 MG TAB PO SCH (21:45)
[2022-01-26] MEDS ORDERED: Lorazepam 0.5 MG TAB PO PRN ×2 (01:38→21:44)
[2022-01-26] MEDS ORDERED: Thiamine 100 MG TAB PO SCH (09:00)
== END 2022-01-24 16:35 | disposition home or self-care (01) | DRG 443 ==
LOC: ERS 16:02 → 2NO 23:17 → OBSVTOIN 01-23 11:54 → MSONC 01-23 16:59
PROVIDERS: ADMIT Hospitalist; ATTEND Hospitalist
DX: K72.00 Acute and subacute hepatic failure without coma (principal); Z20.822 Contact with and (suspected) exposure to COVID-19; K70.30 Alcoholic cirrhosis of liver without ascites; J44.9 Chronic obstructive pulmonary disease, unspecified; E11.9 Type 2 diabetes mellitus without complications; F31.9 Bipolar disorder, unspecified; E87.6 Hypokalemia; K72.10 Chronic hepatic failure without coma; E78.00 Pure hypercholesterolemia, unspecified; F10.229 Alcohol dependence with intoxication, unspecified; Z91.14 Patient's other noncompliance with medication regimen; Z88.0 Allergy status to penicillin; Z79.899 Other long term (current) drug therapy; Z90.710 Acquired absence of both cervix and uterus; Z98.51 Tubal ligation status
CPT/HCPCS: 36415; 36416; 70450; 71045; 80048; 80053; 80306; 80307; 81001; 82140; 83036; 83735; 85025; 85610; 85730; 86593; 86780; 87040; 87086; 93005; 94640; J1650; J3411; J3475; J3480; J7620; U0003; U0005

== ENCOUNTER 2022-08-06 11:25 | Emergency (ER) | payer OTHER | END 2022-08-06 11:47 | disposition left against medical advice (07) | LOC: ERS 11:25 | DX: Z53.29 Procedure and treatment not carried out because of patient's decision for other reasons (principal) | CPT/HCPCS: 36416 ==

== ENCOUNTER 2022-09-14 17:30 | Emergency (ER) | payer SELFPAY ==
[2022-09-14 20:10] LABS: #Basophils 0.1 thou/uL (0.0-0.2); #Eosinphils 0.1 thou/uL (0.0-0.7); #Lymphocytes 2.5 thou/uL (1.20-3.40); #Monocytes 0.8 thou/uL (0.11-0.59); #Neutrophils 2.9 thou/uL (1.40-6.50); %Basophils 1.6 % (0.0-1.0); %Eosinophils 1.6 % (0.0-10.0); %Lymphocytes 39.1 % (21.0-51.0); %Monocytes 12.7 % (0.0-10.0); Hemoglobin 9.2 g/dL (12.0-16.0); Mean Corpuscular HGB CONC 32.1 g/dL (32.0-36.0); Mean Corpuscular Hemoglobin 28.1 pg (27.0-31.0); Mean Corpuscular Volume 87.5 fl (78.0-98.0); Mean Platelet Volume 12.5 fL (7.4-10.4); Platelet Count 64 10x3/uL (130-400); RBC Distribution Width 19.2 % (11.5-14.5); Red Blood Cell (RBC) Count 3.29 mill/uL (4.20-5.40); White Blood Cell (WBC) Count 6.4 10x3/uL (4.8-10.8)
[2022-09-14 20:23] LABS: Anisocytosis SLIGHT = 6-15 cells (100X) (0-5/hpf); MDiff Complete? YES; Platelet Morphology Comment Appears Decreased; Target Cells SLIGHT = 2-5 cells (100X) (0-1/hpf)
[2022-09-14 20:25] LABS: Acetaminophen Less than 10.0 mcg/mL (10.0-30.0); Alcohol 260 mg/dL (Less than 10); CK (CPK) 816 U/L (29-168); Salicylate Less than 8.0 mg/dL (15.0-30.0)
[2022-09-14 20:43] LABS: ALT (SGPT) 23 U/L (8-55); AST (SGOT) 120 U/L (5-34); Albumin 2.7 g/dL (3.5-5.0); Alkaline Phosphatase 270 U/L (40-110); Anion Gap 10 mmol/L (10-20); BUN (Urea Nitrogen) 7 mg/dL (7.0-18.7); Bilirubin, Total 4.5 mg/dL (0.2-1.2); Calc. Creatinine Clearance 0 mL/min (70-130); Calcium 7.4 mg/dL (7.8-10.44); Carbon Dioxide 24 mmol/L (22-29); Chloride 111 mmol/L (98-107); Estimated GFR 110; Glucose 121 mg/dL (70-105); Protein, Total 6.7 g/dL (6.0-8.3); Sodium 142 mmol/L (136-145)
[2022-09-14] MEDS ORDERED: Potassium Chloride 20 MEQ TAB ONE (21:29)
[2022-09-14] MEDS ORDERED: CALCIUM GLUC 1 GM/NS 50 ML BAG ONE (21:42)
[2022-09-14 22:40] LABS: Magnesium 1.4 mg/dL (1.6-2.6)
[2022-09-15] MEDS ORDERED: ALPRAZolam 0.25 MG TAB ONE (10:53)
[2022-09-15] MEDS ORDERED: Pantoprazole 40 MG VIAL ONE (10:54)
== END 2022-09-15 20:05 | disposition home or self-care (01) ==
LOC: ERS 17:30
DX: F10.129 Alcohol abuse with intoxication, unspecified (principal); Y90.6 Blood alcohol level of 120-199 mg/100 ml; D64.9 Anemia, unspecified; D69.6 Thrombocytopenia, unspecified; E87.6 Hypokalemia; R45.851 Suicidal ideations; I10 Essential (primary) hypertension; E11.9 Type 2 diabetes mellitus without complications
CPT/HCPCS: 36415; 36416; 70450; 71045; 80053; 80307; 82550; 83735; 84443; 85025; 93005; 96374; J0613

== ENCOUNTER 2022-09-23 13:12 | Inpatient (IN) | payer SELFPAY ==
[~2022-09-23 13:12] MED LIST changes: -ISOVUE-370 76%-LOCM 1 ML ONE; +Iopamidol-370 76% 500 ML MDV (1 ML CHARGE) ONE
[2022-09-23 13:50] LABS: #Basophils 0.1 thou/uL (0.0-0.2); #Eosinphils 0.2 thou/uL (0.0-0.7); #Lymphocytes 1.8 thou/uL (1.20-3.40); #Monocytes 0.8 thou/uL (0.11-0.59); #Neutrophils 2.3 thou/uL (1.40-6.50); %Eosinophils 3.6 % (0.0-10.0); %Lymphocytes 35.2 % (21.0-51.0); %Monocytes 14.8 % (0.0-10.0); %Neutrophils 45.3 % (42.0-75.0); Hemoglobin 8.6 g/dL (12.0-16.0); Mean Corpuscular HGB CONC 31.5 g/dL (32.0-36.0); Mean Corpuscular Hemoglobin 28.8 pg (27.0-31.0); Mean Corpuscular Volume 91.5 fl (78.0-98.0); Mean Platelet Volume 9.4 fL (7.4-10.4); Platelet Count 125 10x3/uL (130-400); White Blood Cell (WBC) Count 5.1 10x3/uL (4.8-10.8)
[2022-09-23 14:16] LABS: ALT (SGPT) 29 U/L (8-55); AST (SGOT) 112 U/L (5-34); Albumin 2.5 g/dL (3.5-5.0); Alkaline Phosphatase 294 U/L (40-110); Anion Gap 15 mmol/L (10-20); BUN (Urea Nitrogen) 8 mg/dL (7.0-18.7); Calc. Creatinine Clearance 0 mL/min (70-130); Carbon Dioxide 22 mmol/L (22-29); Chloride 106 mmol/L (98-107); Estimated GFR 108; Globulin 4.1 g/dL (2.4-3.5); Glucose 203 mg/dL (70-105); Potassium 3.5 mmol/L (3.5-5.1); Protein, Total 6.6 g/dL (6.0-8.3); Sodium 139 mmol/L (136-145)
[2022-09-23 14:17] LABS: Acetaminophen Less than 10.0 mcg/mL (10.0-30.0); Alcohol 214 mg/dL (Less than 10); Salicylate Less than 8.0 mg/dL (15.0-30.0)
[2022-09-23 14:18] LABS: BHCG - Serum Negative (NEGATIVE); Pregs Control Background? CLEAR/WHITE (CLR/WHITE); Pregs Control Bar Appear? YES (CONTROL BAR)
[2022-09-23 14:34] LABS: Bacteria/HPF None Seen HPF (None Seen); Bilirubin Negative (Negative); Blood, Urine Trace (Negative); Clarity Clear (Clear); Glucose, Urine (Dipstick) 30 mg/dL (Negative); Ketone, Urine Negative (Negative); Leukocyte Negative Leu/uL (Negative); Nitrite Negative (Negative); Protein, Urine (Dipstick) 10 mg/dL (Neg-Trace); RBC/HPF 0-3 HPF (0-3); Specific Gravity, Urine 1.016 (1.002-1.036); Squamous Epithelial 0-3 HPF (0-3); Urobilinogen 12 mg/dL (Less than 2); WBC/HPF 0-3 HPF (0-3)
[2022-09-23 14:42] LABS: Amphetamine Not Detected (NotDetected); Barbiturates Screen Not Detected (NotDetected); Benzodiazepine Screen Not Detected (NotDetected); Cocaine Metabolite Screen Detected (NotDetected); Methadone Not Detected (NotDetected); Methamphetamine Not Detected (NotDetected); Opiate Screen Not Detected (NotDetected); Oxycodone Screen Not Detected (NotDetected); Phencyclidine (PCP) Not Detected (NotDetected); THC/Cannabinoid Screen Not Detected (NotDetected); Tricyclic Screen Not Detected (NotDetected)
[2022-09-23] MEDS ORDERED: Cefepime 2 GM VIAL ONE (14:44)
[2022-09-23 15:33] LABS: Actual Bicarbonate (HCO3v) 25 mEq/L (22-28); Base Excess 0.1 mEq/L (-2.0 to +3.0); Calcium, Ionized (venous) 1.06 mmol/L (1.16-1.32); Chloride (VBG) 107 mmol/L (98-106); Hemoglobin (Hb) 8.6 g/dL (11.7-16.0); Sodium 140.6 mmol/L (133-146); pH (venous) 7.38 (7.32-7.43)
[2022-09-23] MEDS ORDERED: Thiamine HCl 200 MG/2 ML VIAL SLOW IVP SCH (16:45)
[2022-09-23 19:00] LABS: Lactic Acid 2.2 mmol/L (0.5-2.2)
[2022-09-23] MEDS ORDERED: Ondansetron PF 4 MG/2 ML Vial IVP PRN (19:34)
[2022-09-23] MEDS ORDERED: Dextrose 5% in Water 1,000 ML IV PRN (19:36)
[2022-09-23] MEDS ORDERED: HumaLOG 300 UNITS/3 ML VIAL SC PRN ×2 (19:36)
[2022-09-23] MEDS ORDERED: Dextrose 50% Abboject 50 ML SYRINGE SLOW IVP PRN (19:36)
[2022-09-23] MEDS ORDERED: Lorazepam 1 MG TAB PO PRN (19:36)
[2022-09-23] MEDS ORDERED: Lorazepam 2 MG/ML VIAL IM PRN (19:36)
[2022-09-23] MEDS ORDERED: Electrolyte Replacement Protocol 1 EACH FS SCH (19:45)
[2022-09-23 21:16] LABS: Magnesium 1.4 mg/dL (1.6-2.6)
[2022-09-23 21:36] VITALS: BMI 28.8
[2022-09-23] MEDS ORDERED: VANCOMYCIN 2 GRAM/500 ML BAG 2 GM in Premix Bag 1 BAG IVPB SCH (22:00)
[2022-09-23] MEDS: Thiamine HCl 200 MG/2 ML VIAL SLOW IVP SCH (22:24)
[2022-09-24] MEDS ORDERED: Magnesium Sulfate In Water 4 GM in Premix Bag 1 BAG IVPB SCH (00:45)
[2022-09-24] MEDS ORDERED: Magnesium Sulfate In Water 4 GM in Sodium Chloride 0.9% 250 ML 250 ML IVPB SCH (00:45)
[2022-09-24] MEDS ORDERED: Potassium Chloride 20 MEQ TAB PO SCH ×2 (00:45→10:00)
[2022-09-24 06:39] LABS: Hemoglobin 8.1 g/dL (12.0-16.0); Hemoglobin A1c 5.8 % (4.0-6.0); Mean Corpuscular HGB CONC 31.4 g/dL (32.0-36.0); Mean Corpuscular Volume 92.1 fl (78.0-98.0); Mean Platelet Volume 9.9 fL (7.4-10.4); Platelet Count 105 10x3/uL (130-400); RBC Distribution Width 19.5 % (11.5-14.5); Red Blood Cell (RBC) Count 2.79 mill/uL (4.20-5.40); White Blood Cell (WBC) Count 5.7 10x3/uL (4.8-10.8)
[2022-09-24 07:02] LABS: ALT (SGPT) 24 U/L (8-55); AST (SGOT) 104 U/L (5-34); Albumin 2.4 g/dL (3.5-5.0); Alkaline Phosphatase 239 U/L (40-110); Anion Gap 11 mmol/L (10-20); BUN (Urea Nitrogen) 4 mg/dL (7.0-18.7); Bilirubin, Total 4.5 mg/dL (0.2-1.2); Calc. Creatinine Clearance 151 mL/min (70-130); Calcium 7.6 mg/dL (7.8-10.44); Carbon Dioxide 23 mmol/L (22-29); Chloride 107 mmol/L (98-107); Estimated GFR 113; Globulin 3.7 g/dL (2.4-3.5); Glucose 101 mg/dL (70-105); Magnesium 1.7 mg/dL (1.6-2.6); Potassium 3.5 mmol/L (3.5-5.1); Protein, Total 6.1 g/dL (6.0-8.3); Sodium 137 mmol/L (136-145)
[2022-09-24] MEDS ORDERED: Meropenem 1 GM in Sodium Chloride 0.9% 100 ML IVPB SCH ×2 (08:30→14:00)
[2022-09-24] MEDS ORDERED: Cefepime 1 GM in Sodium Chloride 0.9% 100 ML IVPB SCH (09:00)
[2022-09-24] MEDS: hydrALAZINE 25 MG TAB PO SCH ×3 (09:19→21:32)
[2022-09-24] MEDS: Folic Acid 1 MG TAB PO SCH (09:20)
[2022-09-24] MEDS: Multivit, Therapeutic 1 TAB PO SCH (09:20)
[2022-09-24] MEDS: Vancomycin 1.5 GRAM/300 ML BAG 1.5 GM in Premix Bag 1 BAG IVPB SCH ×2 (09:23→21:32)
[2022-09-24 09:47] LABS: Band 2 % (5-11); Eosinophils 3 % (0-10); Lymphocytes 28 % (21-51); MDiff Complete? YES; Monocytes 21 % (0-10); Neutrophil 46 % (42-75); Platelet Morphology Comment Appears Decreased; Polychromasia SLIGHT = 2-3 cells (100X) (0-2/hpf)
[2022-09-24] MEDS: Meropenem 1 GM in Sodium Chloride 0.9% 100 ML IVPB SCH (17:18)
[2022-09-24] MEDS ORDERED: fentaNYL 50 mcg/mL 1 mL Vial ONE (17:21)
[2022-09-24] MEDS ORDERED: Esmolol 100 MG/10 ML VIAL ONE (17:39)
[2022-09-24] MEDS ORDERED: Lidocaine 1% PF 5 ML VIAL ONE (17:39)
[2022-09-24] MEDS ORDERED: Phenylephrine 10 MG/ML VIAL ONE (17:39)
[2022-09-24] MEDS ORDERED: PROPOFOL 200 MG/20 ML VIAL ONE (17:39)
[2022-09-24] MEDS ORDERED: Ondansetron PF 4 MG/2 ML Vial ONE (17:39)
[2022-09-24] MEDS ORDERED: Dexamethasone 20 MG/5 ML VIAL ONE (17:39)
[2022-09-24] MEDS ORDERED: Rocuronium Bromide 10 MG/ML (10ML VIAL) ONE (17:39)
[2022-09-24] MEDS ORDERED: Bupivacaine HCl 0.5%/Epinephrine 1:200,000/PF 30 ml Vial ONE (18:04)
[2022-09-24] MEDS ORDERED: SUGAMMADEX SODIUM 200 MG/2 ML VIAL ONE (18:08)
[2022-09-24] MEDS: Gabapentin 300 MG CAP PO SCH (21:30)
[2022-09-24] MEDS: Thiamine HCl 200 MG/2 ML VIAL SLOW IVP SCH (21:31)
[2022-09-24] MEDS: Lorazepam 1 MG TAB PO PRN (21:32)
[2022-09-25] MEDS: Lorazepam 1 MG TAB PO PRN ×2 (01:03→16:35)
[2022-09-25] MEDS: Meropenem 1 GM in Sodium Chloride 0.9% 100 ML IVPB SCH ×2 (01:03→19:23)
[2022-09-25 06:15] LABS: %Basophils 0.2 % (0.0-1.0); %Lymphocytes 11.2 % (21.0-51.0); %Monocytes 11.4 % (0.0-10.0); %Neutrophils 77.2 % (42.0-75.0); Hemoglobin 8.2 g/dL (12.0-16.0); Mean Corpuscular HGB CONC 31.9 g/dL (32.0-36.0); Mean Corpuscular Hemoglobin 29.3 pg (27.0-31.0); Mean Platelet Volume 9.8 fL (7.4-10.4); Platelet Count 108 10x3/uL (130-400); RBC Distribution Width 19.9 % (11.5-14.5); Red Blood Cell (RBC) Count 2.81 mill/uL (4.20-5.40)
[2022-09-25 06:39] LABS: ALT (SGPT) 22 U/L (8-55); AST (SGOT) 85 U/L (5-34); Albumin 2.2 g/dL (3.5-5.0); Alkaline Phosphatase 212 U/L (40-110); Anion Gap 10 mmol/L (10-20); BUN (Urea Nitrogen) 11 mg/dL (7.0-18.7); Bilirubin, Total 4.1 mg/dL (0.2-1.2); Calc. Creatinine Clearance 109 mL/min (70-130); Calcium 8.2 mg/dL (7.8-10.44); Carbon Dioxide 19 mmol/L (22-29); Chloride 108 mmol/L (98-107); Estimated GFR 93; Globulin 3.8 g/dL (2.4-3.5); Glucose 185 mg/dL (70-105); Magnesium 1.7 mg/dL (1.6-2.6); Potassium 4.3 mmol/L (3.5-5.1); Sodium 133 mmol/L (136-145)
[2022-09-25] MEDS ORDERED: Magnesium 2 GM/50 ML(in water) 2 GM in Premix Bag 1 BAG IVPB SCH (08:00)
[2022-09-25 09:44] LABS: Vancomycin, Trough 10.2 ug/mL
[2022-09-25] MEDS: traMADol HCl 50 MG TAB PO PRN (09:49)
[2022-09-25] MEDS: Acetaminophen 500 MG TAB PO PRN (09:50)
[2022-09-25] MEDS ORDERED: Morphine 2 MG/ML VIAL SLOW IVP PRN (10:00)
[2022-09-25] MEDS ORDERED: Morphine 4 MG/ML VIAL ONE (10:05)
[2022-09-25] MEDS: Gabapentin 300 MG CAP PO SCH ×3 (10:51→20:02)
[2022-09-25] MEDS: Multivit, Therapeutic 1 TAB PO SCH (10:51)
[2022-09-25] MEDS: Folic Acid 1 MG TAB PO SCH (10:51)
[2022-09-25] MEDS: hydrALAZINE 25 MG TAB PO SCH ×3 (10:53→20:01)
[2022-09-25] MEDS ORDERED: Lorazepam 1 MG TAB PO PRN (19:36)
[2022-09-26] MEDS: Multivit, Therapeutic 1 TAB PO SCH (09:19)
[2022-09-26] MEDS: Gabapentin 300 MG CAP PO SCH ×3 (09:19→19:38)
[2022-09-26] MEDS: hydrALAZINE 25 MG TAB PO SCH ×3 (09:19→19:39)
[2022-09-26] MEDS: Folic Acid 1 MG TAB PO SCH (09:19)
[2022-09-26] MEDS: Acetaminophen 500 MG TAB PO PRN (09:23)
[2022-09-26] MEDS: traMADol HCl 50 MG TAB PO PRN (09:24)
[2022-09-26 09:35] LABS: #Basophils 0.1 thou/uL (0.0-0.2); #Eosinphils 0.1 thou/uL (0.0-0.7); #Lymphocytes 2.5 thou/uL (1.20-3.40); #Monocytes 1.7 thou/uL (0.11-0.59); #Neutrophils 7.7 thou/uL (1.40-6.50); %Basophils 0.8 % (0.0-1.0); %Eosinophils 0.9 % (0.0-10.0); %Lymphocytes 20.9 % (21.0-51.0); %Neutrophils 63.4 % (42.0-75.0); Hemoglobin 8.4 g/dL (12.0-16.0); Mean Corpuscular HGB CONC 31.4 g/dL (32.0-36.0); Mean Corpuscular Hemoglobin 29.3 pg (27.0-31.0); Mean Corpuscular Volume 93.3 fl (78.0-98.0); Mean Platelet Volume 9.4 fL (7.4-10.4); Platelet Count 135 10x3/uL (130-400); RBC Distribution Width 20.4 % (11.5-14.5); Red Blood Cell (RBC) Count 2.87 mill/uL (4.20-5.40); White Blood Cell (WBC) Count 12.1 10x3/uL (4.8-10.8)
[2022-09-26 09:55] LABS: ALT (SGPT) 24 U/L (8-55); AST (SGOT) 80 U/L (5-34); Albumin 2.4 g/dL (3.5-5.0); Alkaline Phosphatase 235 U/L (40-110); Anion Gap 12 mmol/L (10-20); BUN (Urea Nitrogen) 13 mg/dL (7.0-18.7); Bilirubin, Total 3.6 mg/dL (0.2-1.2); Calc. Creatinine Clearance 120 mL/min (70-130); Calcium 8.8 mg/dL (7.8-10.44); Carbon Dioxide 20 mmol/L (22-29); Chloride 106 mmol/L (98-107); Estimated GFR 104; Globulin 3.9 g/dL (2.4-3.5); Glucose 128 mg/dL (70-105); Magnesium 1.5 mg/dL (1.6-2.6); Potassium 4.2 mmol/L (3.5-5.1); Protein, Total 6.3 g/dL (6.0-8.3); Sodium 134 mmol/L (136-145)
[2022-09-26] MEDS ORDERED: Lorazepam 0.5 MG TAB PO PRN (19:36)
[2022-09-26] MEDS: Thiamine 100 MG TAB PO SCH (19:39)
[2022-09-27 06:40] LABS: Anion Gap 11 mmol/L (10-20); BUN (Urea Nitrogen) 11 mg/dL (7.0-18.7); Calc. Creatinine Clearance 118 mL/min (70-130); Calcium 8.5 mg/dL (7.8-10.44); Carbon Dioxide 23 mmol/L (22-29); Chloride 105 mmol/L (98-107); Estimated GFR 102; Glucose 123 mg/dL (70-105); Potassium 3.9 mmol/L (3.5-5.1); Sodium 135 mmol/L (136-145)
[2022-09-27] MEDS: Gabapentin 300 MG CAP PO SCH ×3 (08:19→20:21)
[2022-09-27] MEDS: Folic Acid 1 MG TAB PO SCH (08:19)
[2022-09-27] MEDS: hydrALAZINE 25 MG TAB PO SCH ×3 (08:19→20:22)
[2022-09-27] MEDS: Multivit, Therapeutic 1 TAB PO SCH (08:19)
[2022-09-27 10:29] LABS: Hemoglobin 7.8 g/dL (12.0-16.0); Mean Corpuscular Hemoglobin 28.2 pg (27.0-31.0); Mean Corpuscular Volume 93.9 fl (78.0-98.0); Mean Platelet Volume 9.5 fL (7.4-10.4); Platelet Count 125 10x3/uL (130-400); RBC Distribution Width 20.5 % (11.5-14.5); Red Blood Cell (RBC) Count 2.75 mill/uL (4.20-5.40); White Blood Cell (WBC) Count 9.5 10x3/uL (4.8-10.8)
[2022-09-27 10:36] LABS: Eosinophils 3 % (0-10); Hypochromia SLIGHT = 6-15 cells (100X) (0-5/hpf); Lymphocytes 34 % (21-51); MDiff Complete? YES; Monocytes 14 % (0-10); Neutrophil 49 % (42-75); Platelet Morphology Comment Appears Decreased; Polychromasia SLIGHT = 2-3 cells (100X) (0-2/hpf); Target Cells SLIGHT = 2-5 cells (100X) (0-1/hpf); Vacuoles SLIGHT
[2022-09-27] MEDS: Thiamine 100 MG TAB PO SCH (20:22)
[2022-09-27] MEDS: traMADol HCl 50 MG TAB PO PRN (20:23)
[2022-09-28 06:31] LABS: Hemoglobin 8.3 g/dL (12.0-16.0); Hypochromia SLIGHT = 6-15 cells (100X) (0-5/hpf); Lymphocytes 13 % (21-51); MDiff Complete? YES; Mean Corpuscular HGB CONC 33.2 g/dL (32.0-36.0); Mean Corpuscular Hemoglobin 30.2 pg (27.0-31.0); Mean Corpuscular Volume 90.9 fl (78.0-98.0); Monocytes 14 % (0-10); Neutrophil 73 % (42-75); Platelet Count 131 10x3/uL (130-400); Platelet Morphology Comment Appears Adequate; RBC Distribution Width 19.3 % (11.5-14.5); Red Blood Cell (RBC) Count 2.74 mill/uL (4.20-5.40); Target Cells SLIGHT = 2-5 cells (100X) (0-1/hpf); White Blood Cell (WBC) Count 9.5 10x3/uL (4.8-10.8)
[2022-09-28 06:40] LABS: Anion Gap 11 mmol/L (10-20); BUN (Urea Nitrogen) 11 mg/dL (7.0-18.7); Calc. Creatinine Clearance 120 mL/min (70-130); Calcium 8.6 mg/dL (7.8-10.44); Carbon Dioxide 23 mmol/L (22-29); Chloride 103 mmol/L (98-107); Estimated GFR 104; Glucose 104 mg/dL (70-105); Sodium 133 mmol/L (136-145)
[2022-09-28] MEDS: Gabapentin 300 MG CAP PO SCH ×3 (08:23→20:23)
[2022-09-28] MEDS: hydrALAZINE 25 MG TAB PO SCH ×3 (08:24→20:23)
[2022-09-28] MEDS: Folic Acid 1 MG TAB PO SCH (08:24)
[2022-09-28] MEDS: Multivit, Therapeutic 1 TAB PO SCH (08:24)
[2022-09-28] MEDS: traMADol HCl 50 MG TAB PO PRN (09:45)
[2022-09-28] MEDS: Thiamine 100 MG TAB PO SCH (20:23)
[2022-09-29] MEDS: hydrALAZINE 25 MG TAB PO SCH ×3 (09:11→20:55)
[2022-09-29] MEDS: Folic Acid 1 MG TAB PO SCH (09:11)
[2022-09-29] MEDS: Gabapentin 300 MG CAP PO SCH ×3 (09:12→20:54)
[2022-09-29] MEDS: Multivit, Therapeutic 1 TAB PO SCH (09:12)
[2022-09-29] MEDS: Thiamine 100 MG TAB PO SCH (20:55)
[2022-09-30] MEDS: Gabapentin 300 MG CAP PO SCH ×3 (08:56→19:36)
[2022-09-30] MEDS: hydrALAZINE 25 MG TAB PO SCH ×3 (08:57→19:36)
[2022-09-30] MEDS: Multivit, Therapeutic 1 TAB PO SCH (08:57)
[2022-09-30] MEDS: Folic Acid 1 MG TAB PO SCH (08:57)
[2022-09-30] MEDS: Thiamine 100 MG TAB PO SCH (19:36)
[2022-10-01] MEDS: Multivit, Therapeutic 1 TAB PO SCH (07:21)
[2022-10-01] MEDS: hydrALAZINE 25 MG TAB PO SCH ×3 (07:21→20:07)
[2022-10-01] MEDS: Folic Acid 1 MG TAB PO SCH (07:21)
[2022-10-01] MEDS: Gabapentin 300 MG CAP PO SCH ×3 (07:22→20:07)
[2022-10-01] MEDS: Thiamine 100 MG TAB PO SCH (20:07)
[2022-10-02] MEDS: hydrALAZINE 25 MG TAB PO SCH ×2 (07:30→16:17)
[2022-10-02] MEDS: Gabapentin 300 MG CAP PO SCH ×2 (07:30→16:17)
[2022-10-02] MEDS: Folic Acid 1 MG TAB PO SCH (07:30)
[2022-10-02] MEDS: Multivit, Therapeutic 1 TAB PO SCH (07:31)
[2022-10-02 12:52] VITALS: BP 127/74; TEMP 98.3
== END 2022-10-02 16:30 | disposition home or self-care (01) | DRG 603 ==
LOC: ERS 13:12 → SURG B 18:16
PROVIDERS: ADMIT Internal Medicine; ATTEND Internal Medicine
PROC: 0J990ZZ Drainage of Buttock Subcutaneous Tissue and Fascia, Open Approach (ICD-10-PCS; principal; 2022-09-24)
DX: L02.31 Cutaneous abscess of buttock (principal); D68.9 Coagulation defect, unspecified; L03.213 Periorbital cellulitis; M79.81 Nontraumatic hematoma of soft tissue; K60.4 Rectal fistula; F31.9 Bipolar disorder, unspecified; E11.9 Type 2 diabetes mellitus without complications; I10 Essential (primary) hypertension; J44.9 Chronic obstructive pulmonary disease, unspecified; D69.6 Thrombocytopenia, unspecified; F10.10 Alcohol abuse, uncomplicated; F14.10 Cocaine abuse, uncomplicated; K70.31 Alcoholic cirrhosis of liver with ascites; Z88.8 Allergy status to other drugs, medicaments and biological substances; Z88.0 Allergy status to penicillin; Z90.710 Acquired absence of both cervix and uterus; Z98.51 Tubal ligation status; Z98.890 Other specified postprocedural states; Z87.891 Personal history of nicotine dependence; Z91.148 Patient's other noncompliance with medication regimen for other reason
CPT/HCPCS: 36415; 36416; 70450; 70481; 72193; 80048; 80053; 80202; 80306; 80307; 81003; 81015; 82010; 82140; 82805; 83036; 83605; 83735; 84703; 85025; 87040; 87086; 96374; 96375; 97139; J0692; J1100; J2185; J2270; J2370; J2405; J2704; J3010; J3370; J3411; J3475; J3490; Q9967

== ENCOUNTER 2022-10-17 16:32 | Emergency (ER) | payer SELFPAY | END 2022-10-18 01:13 | disposition home or self-care (01) | LOC: ERS 16:32 | DX: F10.129 Alcohol abuse with intoxication, unspecified (principal); I10 Essential (primary) hypertension; E11.9 Type 2 diabetes mellitus without complications | CPT/HCPCS: 99284 ==

== ENCOUNTER 2023-03-17 16:59 | Emergency (ER) | payer OTHER ==
[2023-03-17 18:36] LABS: #Basophils 0.1 thou/uL (0.0-0.2); #Eosinphils 0.1 thou/uL (0.0-0.7); #Monocytes 0.7 thou/uL (0.11-0.59); #Neutrophils 2.7 thou/uL (1.40-6.50); %Basophils 1.8 % (0.0-1.0); %Eosinophils 2.3 % (0.0-10.0); %Lymphocytes 29.2 % (21.0-51.0); %Monocytes 14.2 % (0.0-10.0); %Neutrophils 52.3 % (42.0-75.0); Hematocrit 32.5 % (36.0-47.0); Hemoglobin 10.8 g/dL (12.0-16.0); Mean Corpuscular HGB CONC 33.2 g/dL (32.0-36.0); Mean Corpuscular Volume 84.2 fl (78.0-98.0); RBC Distribution Width 20.1 % (11.5-14.5); Red Blood Cell (RBC) Count 3.86 mill/uL (4.20-5.40); White Blood Cell (WBC) Count 5.1 10x3/uL (4.8-10.8)
[2023-03-17 19:10] LABS: Platelet Count 86 10x3/uL (130-400)
[2023-03-17 19:24] LABS: ALT (SGPT) 24 U/L (8-55); AST (SGOT) 112 U/L (5-34); Albumin 2.8 g/dL (3.5-5.0); Alkaline Phosphatase 225 U/L (40-110); Anion Gap 15 mmol/L (10-20); BUN (Urea Nitrogen) 6 mg/dL (7.0-18.7); Bilirubin, Total 3.6 mg/dL (0.2-1.2); Calc. Creatinine Clearance 0 mL/min (70-130); Calcium 8.7 mg/dL (7.8-10.44); Carbon Dioxide 22 mmol/L (22-29); Chloride 106 mmol/L (98-107); Estimated GFR 107; Globulin 5.3 g/dL (2.4-3.5); Glucose 99 mg/dL (70-105); Protein, Total 8.1 g/dL (6.0-8.3); Sodium 139 mmol/L (136-145)
[2023-03-17] MEDS ORDERED: Diazepam 10 MG/2 ML SYRINGE ONE (19:37)
[2023-03-17 21:16] LABS: Bilirubin Negative (Negative); Blood, Urine 2+ (Negative); CAUTI Indications for Culture Dysuria,urgency,freq; Clarity Clear (Clear); Glucose, Urine (Dipstick) Normal (Negative); Ketone, Urine Negative (Negative); Leukocyte Negative Leu/uL (Negative); Nitrite 2+ (Negative); Protein, Urine (Dipstick) 30 mg/dL (Neg-Trace); RBC/HPF 0-3 HPF (0-3); Specific Gravity, Urine 1.011 (1.002-1.036); Squamous Epithelial 0-3 HPF (0-3); Urobilinogen 3 mg/dL (Less than 2); WBC/HPF 0-3 HPF (0-3); pH, Urine 7.5 (5.0-9.0)
[2023-03-17 21:20] LABS: Bacteria/HPF 1+ HPF (None Seen)
[2023-03-17 21:21] LABS: Urine Culture Reflex No No
[2023-03-17 21:22] LABS: Amphetamine Not Detected (NotDetected); Barbiturates Screen Not Detected (NotDetected); Benzodiazepine Screen Not Detected (NotDetected); Cocaine Metabolite Screen Not Detected (NotDetected); Methadone Not Detected (NotDetected); Methamphetamine Not Detected (NotDetected); Opiate Screen Not Detected (NotDetected); Oxycodone Screen Not Detected (NotDetected); Phencyclidine (PCP) Not Detected (NotDetected); THC/Cannabinoid Screen Not Detected (NotDetected); Tricyclic Screen Not Detected (NotDetected)
== END 2023-03-17 23:24 | disposition home or self-care (01) ==
LOC: ERS 16:59
DX: F10.10 Alcohol abuse, uncomplicated (principal); I10 Essential (primary) hypertension; E11.9 Type 2 diabetes mellitus without complications; G40.909 Epilepsy, unspecified, not intractable, without status epilepticus
CPT/HCPCS: 36415; 70450; 80053; 80306; 81001; 85025; 96365; 96375; J3360; J3411

== ENCOUNTER 2023-03-18 23:24 | Inpatient (IN) | payer OTHER, SELFPAY ==
[2023-03-19 00:21] LABS: #Basophils 0.1 thou/uL (0.0-0.2); #Monocytes 2.1 thou/uL (0.11-0.59); #Neutrophils 11.6 thou/uL (1.40-6.50); %Basophils 0.4 % (0.0-1.0); %Lymphocytes 7.1 % (21.0-51.0); %Monocytes 13.9 % (0.0-10.0); Hematocrit 33.7 % (36.0-47.0); Mean Corpuscular HGB CONC 32.6 g/dL (32.0-36.0); Mean Corpuscular Hemoglobin 27.3 pg (27.0-31.0); Mean Corpuscular Volume 83.6 fl (78.0-98.0); RBC Distribution Width 19.9 % (11.5-14.5); Red Blood Cell (RBC) Count 4.03 mill/uL (4.20-5.40); White Blood Cell (WBC) Count 14.9 10x3/uL (4.8-10.8)
[2023-03-19 00:25] LABS: Platelet Count 80 10x3/uL (130-400)
[2023-03-19 00:31] LABS: INR-International Normal Ratio 1.6; PTT 39.5 sec (22.9-36.1); Prothrombin Time 19.6 sec (12.0-14.7)
[2023-03-19] MEDS ORDERED: Acetaminophen 500 MG TAB ONE (00:37)
[2023-03-19 00:41] LABS: BHCG - Serum Negative (NEGATIVE); Pregs Control Background? CLEAR/WHITE (CLR/WHITE); Pregs Control Bar Appear? YES (CONTROL BAR)
[2023-03-19 00:43] LABS: Acetaminophen Less than 10 mcg/mL (10.0-30.0); Alcohol Less than 10.0 mg/dL (Less than 10); Lipase 41 U/L (8-78); Salicylate Less than 8.0 mg/dL (15.0-30.0)
[2023-03-19 00:45] LABS: ALT (SGPT) 23 U/L (8-55); AST (SGOT) 103 U/L (5-34); Alkaline Phosphatase 190 U/L (40-110); Anion Gap 17 mmol/L (10-20); BUN (Urea Nitrogen) 9 mg/dL (7.0-18.7); Bilirubin, Total 5.1 mg/dL (0.2-1.2); CK (CPK) 525 U/L (29-168); Calc. Creatinine Clearance 0 mL/min (70-130); Calcium 8.9 mg/dL (7.8-10.44); Carbon Dioxide 18 mmol/L (22-29); Chloride 101 mmol/L (98-107); Estimated GFR 92; Globulin 5.4 g/dL (2.4-3.5); Glucose 111 mg/dL (70-105); Potassium 3.2 mmol/L (3.5-5.1); Protein, Total 8.4 g/dL (6.0-8.3); Sodium 133 mmol/L (136-145)
[2023-03-19 00:47] LABS: Troponin I 0.051 ng/mL (< 0.028)
[2023-03-19 00:49] LABS: Anisocytosis SLIGHT = 6-15 cells HPF (0-5); CellaVision Operator ID lab.abc; Platelet Adequacy Comment Platelets Decreased; Polychromasia SLIGHT = 2-3 cells HPF (0-2); Target Cells MODERATE= 6-15 cells HPF (0-1)
[2023-03-19] MEDS ORDERED: Piperacillin/Tazobactam 3.375 GM VIAL ONE (01:51)
[2023-03-19] MEDS ORDERED: LORazepam 2 MG/ML SYR.(CARPUJECT) ONE (01:51)
[2023-03-19] MEDS ORDERED: Vancomycin 1 GM/200 ML (FROZEN) BAG ONE (01:51)
[2023-03-19] MEDS ORDERED: Thiamine HCl 200 MG/2 ML VIAL SLOW IVP SCH (02:15)
[2023-03-19 03:34] VITALS: BMI 26.6
[2023-03-19] MEDS ORDERED: Aspirin Chewable 81 MG TAB ONE (03:42)
[2023-03-19] MEDS ORDERED: Sodium Chloride 0.9% 1,000 ML IV SCH (03:45)
[2023-03-19] MEDS ORDERED: Ondansetron ODT 4 MG TAB SL PRN (03:45)
[2023-03-19] MEDS ORDERED: Acetaminophen 325 MG TAB PO PRN (03:45)
[2023-03-19] MEDS ORDERED: Ondansetron PF 4 MG/2 ML Vial IVP PRN (03:45)
[2023-03-19] MEDS ORDERED: Lorazepam 2 MG/ML VIAL IM PRN (04:11)
[2023-03-19] MEDS ORDERED: Lorazepam 1 MG TAB PO PRN (04:11)
[2023-03-19] MEDS ORDERED: Ondansetron ODT 4 MG TAB PO PRN (04:11)
[2023-03-19] MEDS ORDERED: Senokot S 8.6-50 MG TAB PO PRN (04:12)
[2023-03-19] MEDS ORDERED: Electrolyte Replacement Protocol 1 EACH FS SCH (04:15)
[2023-03-19 04:48] LABS: Lactic Acid 1.5 mmol/L (0.5-2.2)
[2023-03-19 04:54] LABS: Troponin I 0.048 ng/mL (< 0.028)
[2023-03-19 05:49] LABS: Magnesium 1.2 mg/dL (1.6-2.6); Phosphorus 3.4 mg/dL (2.3-4.7)
[2023-03-19] MEDS: Lorazepam 1 MG TAB PO SCH ×4 (05:52→22:55)
[2023-03-19 07:23] LABS: Troponin I 0.044 ng/mL (< 0.028)
[2023-03-19] MEDS ORDERED: Magnesium Sulfate In Water 4 GM in Premix Bag 1 BAG IVPB SCH (08:00)
[2023-03-19] MEDS ORDERED: Potassium Chloride 20 MEQ TAB PO SCH ×2 (08:00→17:45)
[2023-03-19] MEDS ORDERED: Famotidine 20 MG TAB ONE (08:50)
[2023-03-19] MEDS ORDERED: Potassium Chloride 20 MEQ TAB ONE (08:50)
[2023-03-19] MEDS ORDERED: Folic Acid 1 MG TAB ONE (08:50)
[2023-03-19] MEDS ORDERED: Famotidine 20 MG TAB PO SCH (09:00)
[2023-03-19] MEDS: Folic Acid 1 MG TAB PO SCH (09:45)
[2023-03-19] MEDS ORDERED: VANCOMYCIN IVPB PRN (09:47)
[2023-03-19] MEDS ORDERED: Cefepime 2 GM VIAL ONE (10:48)
[2023-03-19] MEDS: Cefepime 2 GM in Sodium Chloride 0.9% 100 ML IVPB SCH ×2 (11:00→22:55)
[2023-03-19 11:23] LABS: Amphetamine Not Detected (NotDetected); Barbiturates Screen Not Detected (NotDetected); Benzodiazepine Screen Detected (NotDetected); Cocaine Metabolite Screen Detected (NotDetected); Methadone Not Detected (NotDetected); Methamphetamine Not Detected (NotDetected); Opiate Screen Not Detected (NotDetected); Oxycodone Screen Not Detected (NotDetected); Phencyclidine (PCP) Not Detected (NotDetected); THC/Cannabinoid Screen Not Detected (NotDetected); Tricyclic Screen Not Detected (NotDetected)
[2023-03-19] MEDS ORDERED: Lorazepam 1 MG TAB ONE (11:29)
[2023-03-19 14:48] LABS: #Basophils 0.1 thou/uL (0.0-0.2); #Eosinphils 0.1 thou/uL (0.0-0.7); #Monocytes 1.7 thou/uL (0.11-0.59); #Neutrophils 10.3 thou/uL (1.40-6.50); %Basophils 0.5 % (0.0-1.0); %Eosinophils 0.7 % (0.0-10.0); %Lymphocytes 8.5 % (21.0-51.0); %Monocytes 12.7 % (0.0-10.0); %Neutrophils 76.8 % (42.0-75.0); Hemoglobin 10.5 g/dL (12.0-16.0); Mean Corpuscular HGB CONC 32.8 g/dL (32.0-36.0); Mean Corpuscular Hemoglobin 27.6 pg (27.0-31.0); RBC Distribution Width 20.3 % (11.5-14.5); Red Blood Cell (RBC) Count 3.81 mill/uL (4.20-5.40); White Blood Cell (WBC) Count 13.4 10x3/uL (4.8-10.8)
[2023-03-19 15:13] LABS: Platelet Count 68 10x3/uL (130-400)
[2023-03-19 15:15] LABS: Anion Gap 9 mmol/L (10-20); BUN (Urea Nitrogen) 11 mg/dL (7.0-18.7); Calc. Creatinine Clearance 102 mL/min (70-130); Calcium 8.1 mg/dL (7.8-10.44); Carbon Dioxide 23 mmol/L (22-29); Chloride 106 mmol/L (98-107); Estimated GFR 98; Glucose 129 mg/dL (70-105); Magnesium 2.2 mg/dL (1.6-2.6); Phosphorus 2.2 mg/dL (2.3-4.7); Potassium 3.5 mmol/L (3.5-5.1); Sodium 134 mmol/L (136-145)
[2023-03-19] MEDS: Vancomycin 1 GM in Premix Bag 1 BAG IVPB SCH (16:15)
[2023-03-19] MEDS: PHOS-NAK 1 PKT PACK PO SCH ×2 (18:05→20:45)
[2023-03-19] MEDS: Multivit, Therapeutic 1 TAB PO SCH (18:06)
[2023-03-19 19:15] LABS: Bilirubin Negative (Negative); Blood, Urine 3+ (Negative); CAUTI Indications for Culture Alt mental st,lethar; Clarity Clear (Clear); Glucose, Urine (Dipstick) Normal (Negative); Ketone, Urine Negative (Negative); Leukocyte 500 Leu/uL (Negative); Nitrite Negative (Negative); Protein, Urine (Dipstick) 70 mg/dL (Neg-Trace); RBC/HPF 21-50 HPF (0-3); Specific Gravity, Urine 1.019 (1.002-1.036); Urobilinogen Greater than 12 mg/dL (Less than 2); WBC/HPF 21-50 HPF (0-3)
[2023-03-19 19:16] LABS: Bacteria/HPF 1+ HPF (None Seen)
[2023-03-19 19:17] LABS: Urine Culture Reflex Yes Yes
[2023-03-19] MEDS: Acetaminophen 500 MG TAB PO PRN (20:39)
[2023-03-20] MEDS: Vancomycin 1 GM in Premix Bag 1 BAG IVPB SCH ×3 (03:34→17:14)
[2023-03-20] MEDS ORDERED: Lorazepam 1 MG TAB PO PRN (04:11)
[2023-03-20 05:09] LABS: Hematocrit 28.8 % (36.0-47.0); Mean Corpuscular HGB CONC 34.7 g/dL (32.0-36.0); Mean Corpuscular Hemoglobin 27.6 pg (27.0-31.0); RBC Distribution Width 19.7 % (11.5-14.5); Red Blood Cell (RBC) Count 3.62 mill/uL (4.20-5.40); White Blood Cell (WBC) Count 10.5 10x3/uL (4.8-10.8)
[2023-03-20 05:33] LABS: ALT (SGPT) 22 U/L (8-55); AST (SGOT) 94 U/L (5-34); Albumin 2.4 g/dL (3.5-5.0); Alkaline Phosphatase 149 U/L (40-110); Anion Gap 11 mmol/L (10-20); BUN (Urea Nitrogen) 9 mg/dL (7.0-18.7); Bilirubin, Total 3.5 mg/dL (0.2-1.2); Calc. Creatinine Clearance 112 mL/min (70-130); Calcium 7.8 mg/dL (7.8-10.44); Carbon Dioxide 21 mmol/L (22-29); Chloride 104 mmol/L (98-107); Estimated GFR 107; Globulin 4.3 g/dL (2.4-3.5); Glucose 112 mg/dL (70-105); Magnesium 1.5 mg/dL (1.6-2.6); Potassium 3.6 mmol/L (3.5-5.1); Protein, Total 6.7 g/dL (6.0-8.3); Sodium 132 mmol/L (136-145)
[2023-03-20 05:34] LABS: Phosphorus 2.5 mg/dL (2.3-4.7)
[2023-03-20 05:40] LABS: Mean Corpuscular Volume 79.6 fl (78.0-98.0); Platelet Count 73 10x3/uL (130-400)
[2023-03-20 05:41] LABS: Delete Auto Diff?? YES; Manual Diff?? YES
[2023-03-20] MEDS: Lorazepam 1 MG TAB PO SCH ×3 (06:37→18:07)
[2023-03-20 06:41] LABS: Anisocytosis MODERATE=16-30 cells HPF (0-5); Band 12 % (5-11); CellaVision Operator ID LAB.JMM; Eosinophils 1 % (0-10); Lymphocytes 7 % (21-51); Macrocytosis MODERATE=16-30 cells HPF (0-5); Monocytes 6 % (0-10); Neutrophil 73 % (42-75); Platelet Adequacy Comment Platelets Decreased; Polychromasia SLIGHT = 2-3 cells HPF (0-2); Smudge Cells 25.3 %; Target Cells SLIGHT = 2-5 cells HPF (0-1); Total Cell Count 99
[2023-03-20] MEDS: Thiamine HCl 200 MG/2 ML VIAL SLOW IVP SCH (06:41)
[2023-03-20] MEDS ORDERED: Magnesium 2 GM/50 ML(in water) 2 GM in Premix Bag 1 BAG IVPB SCH (08:00)
[2023-03-20] MEDS ORDERED: Aspirin 81 mg Enteric Coated Tablet PO SCH (09:00)
[2023-03-20] MEDS: Cefepime 2 GM in Sodium Chloride 0.9% 100 ML IVPB SCH ×2 (09:06→21:55)
[2023-03-20] MEDS: Folic Acid 1 MG TAB PO SCH (13:05)
[2023-03-20] MEDS: Multivit, Therapeutic 1 TAB PO SCH (13:05)
[2023-03-20] MEDS ORDERED: Vancomycin 1 GM in Premix Bag 1 BAG IVPB SCH (15:30)
[2023-03-20 16:39] LABS: Vancomycin, Trough 3.7 ug/mL
[2023-03-20] MEDS ORDERED: D5 LR w/20 mEq KCL 1,000 ML IV SCH (17:30)
[2023-03-20] MEDS: Dextrose 5%-Lactated Ringers 1,000 ML IV SCH (18:07)
[2023-03-20] MEDS ORDERED: Glucagon 1 MG/ML KIT IM PRN (19:12)
[2023-03-20] MEDS ORDERED: HumaLOG 300 UNITS/3 ML VIAL SC PRN ×2 (19:12)
[2023-03-20] MEDS ORDERED: Dextrose 5% in Water 1,000 ML IV PRN (19:12)
[2023-03-20] MEDS ORDERED: Dextrose 50% Abboject 50 ML SYRINGE SLOW IVP PRN (19:12)
[2023-03-20] MEDS ORDERED: Phytonadione 10 MG/ML AMP PO SCH (19:15)
[2023-03-20] MEDS ORDERED: Phytonadione 5 MG TAB PO SCH (19:45)
[2023-03-21] MEDS: Vancomycin 1 GM in Premix Bag 1 BAG IVPB SCH (01:50)
[2023-03-21] MEDS ORDERED: Lorazepam 1 MG TAB PO PRN (04:11)
[2023-03-21 05:04] LABS: Hematocrit 27.6 % (36.0-47.0); Hemoglobin 9.3 g/dL (12.0-16.0); Manual Diff?? YES; Mean Corpuscular HGB CONC 33.7 g/dL (32.0-36.0); Mean Corpuscular Hemoglobin 27.4 pg (27.0-31.0); Mean Corpuscular Volume 81.4 fl (78.0-98.0); RBC Distribution Width 20.1 % (11.5-14.5); Red Blood Cell (RBC) Count 3.39 mill/uL (4.20-5.40); White Blood Cell (WBC) Count 7.9 10x3/uL (4.8-10.8)
[2023-03-21 05:10] LABS: Platelet Count 70 10x3/uL (130-400)
[2023-03-21 05:11] LABS: Delete Auto Diff?? YES
[2023-03-21 05:20] LABS: INR-International Normal Ratio 1.8; PTT 40.3 sec (22.9-36.1); Prothrombin Time 21.8 sec (12.0-14.7)
[2023-03-21 05:27] LABS: ALT (SGPT) 20 U/L (8-55); AST (SGOT) 83 U/L (5-34); Albumin 2.2 g/dL (3.5-5.0); Alkaline Phosphatase 123 U/L (40-110); Anion Gap 8 mmol/L (10-20); BUN (Urea Nitrogen) 8 mg/dL (7.0-18.7); Bilirubin, Total 3.2 mg/dL (0.2-1.2); Calc. Creatinine Clearance 119 mL/min (70-130); Calcium 7.7 mg/dL (7.8-10.44); Carbon Dioxide 24 mmol/L (22-29); Chloride 103 mmol/L (98-107); Estimated GFR 109; Globulin 4.1 g/dL (2.4-3.5); Glucose 120 mg/dL (70-105); Magnesium 1.5 mg/dL (1.6-2.6); Potassium 3.5 mmol/L (3.5-5.1); Protein, Total 6.3 g/dL (6.0-8.3); Sodium 131 mmol/L (136-145)
[2023-03-21 05:48] LABS: Anisocytosis SLIGHT = 6-15 cells HPF (0-5); CellaVision Operator ID lab.abc; Large Platelets 7.1 % (0-5); Lymphocytes 31 % (21-51); Monocytes 14 % (0-10); Neutrophil 55 % (42-75); Platelet Adequacy Comment Platelets Decreased; Polychromasia SLIGHT = 2-3 cells HPF (0-2); Smudge Cells 32.3 %; Target Cells SLIGHT = 2-5 cells HPF (0-1); Total Cell Count 99
[2023-03-21] MEDS ORDERED: Lorazepam 0.5 MG TAB PO SCH (06:00)
[2023-03-21] MEDS ORDERED: Magnesium 2 GM/50 ML(in water) 2 GM in Premix Bag 1 BAG IVPB SCH (06:00)
[2023-03-21] MEDS: Thiamine HCl 200 MG/2 ML VIAL SLOW IVP SCH (06:22)
[2023-03-21] MEDS ORDERED: Potassium Chloride 20 MEQ TAB PO SCH (08:00)
[2023-03-21] MEDS: Folic Acid 1 MG TAB PO SCH (08:29)
[2023-03-21] MEDS: Multivit, Therapeutic 1 TAB PO SCH (08:41)
[2023-03-21] MEDS: Cefepime 2 GM in Sodium Chloride 0.9% 100 ML IVPB SCH (08:48)
[2023-03-21] MEDS: Dextrose 5%-Lactated Ringers 1,000 ML IV SCH (12:59)
[2023-03-21 13:00] LABS: Potassium 3.7 mmol/L (3.5-5.1)
[2023-03-21] MEDS: cefTRIAXone\\ROCEPHIN 2 GM in Sodium Chloride 0.9% 100 ML IVPB SCH (16:20)
[2023-03-21] MEDS: Acetaminophen 500 MG TAB PO PRN (21:16)
[2023-03-22 04:07] LABS: Hematocrit 28.5 % (36.0-47.0); Hemoglobin 9.6 g/dL (12.0-16.0); Manual Diff?? YES; Mean Corpuscular HGB CONC 33.7 g/dL (32.0-36.0); Mean Corpuscular Hemoglobin 27.2 pg (27.0-31.0); Mean Corpuscular Volume 80.7 fl (78.0-98.0); RBC Distribution Width 20.1 % (11.5-14.5); Red Blood Cell (RBC) Count 3.53 mill/uL (4.20-5.40); White Blood Cell (WBC) Count 6.8 10x3/uL (4.8-10.8)
[2023-03-22] MEDS ORDERED: Lorazepam 0.5 MG TAB PO PRN (04:11)
[2023-03-22 04:43] LABS: ALT (SGPT) 17 U/L (8-55); AST (SGOT) 75 U/L (5-34); Albumin 2.1 g/dL (3.5-5.0); Alkaline Phosphatase 134 U/L (40-110); Anion Gap 9 mmol/L (10-20); BUN (Urea Nitrogen) 6 mg/dL (7.0-18.7); Bilirubin, Total 2.3 mg/dL (0.2-1.2); Calc. Creatinine Clearance 119 mL/min (70-130); Calcium 8.5 mg/dL (7.8-10.44); Carbon Dioxide 23 mmol/L (22-29); Chloride 108 mmol/L (98-107); Estimated GFR 109; Globulin 3.8 g/dL (2.4-3.5); Glucose 146 mg/dL (70-105); Magnesium 1.4 mg/dL (1.6-2.6); Potassium 3.6 mmol/L (3.5-5.1); Protein, Total 5.9 g/dL (6.0-8.3); Sodium 136 mmol/L (136-145)
[2023-03-22 04:46] LABS: Delete Auto Diff?? YES; Platelet Count 70 10x3/uL (130-400)
[2023-03-22 05:08] LABS: Anisocytosis MODERATE=16-30 cells HPF (0-5); Band 4 % (5-11); CellaVision Operator ID LAB.JMM; Eosinophils 5 % (0-10); Hypochromia SLIGHT = 6-15 cells HPF (0-5); Lymphocytes 27 % (21-51); Macrocytosis SLIGHT = 6-15 cells HPF (0-5); Monocytes 15 % (0-10); Neutrophil 46 % (42-75); Nucleated RBC (Manual Ct) 1 % (0); Platelet Adequacy Comment Platelets Decreased; Reactive Lymphocytes 2 % (0-10); Target Cells SLIGHT = 2-5 cells HPF (0-1); Total Cell Count 100
[2023-03-22] MEDS ORDERED: Magnesium Sulfate In Water 4 GM in Premix Bag 1 BAG IVPB SCH (06:00)
[2023-03-22] MEDS: Multivit, Therapeutic 1 TAB PO SCH (08:08)
[2023-03-22] MEDS: Thiamine 100 MG TAB PO SCH (08:09)
[2023-03-22] MEDS: cefTRIAXone\\ROCEPHIN 2 GM in Sodium Chloride 0.9% 100 ML IVPB SCH (15:58)
[2023-03-22] MEDS: Acetaminophen 500 MG TAB PO PRN (20:25)
[2023-03-23] MEDS: Thiamine 100 MG TAB PO SCH (08:36)
[2023-03-23] MEDS: Folic Acid 1 MG TAB PO SCH (08:36)
[2023-03-23] MEDS: Multivit, Therapeutic 1 TAB PO SCH (08:36)
[2023-03-23 09:46] LABS: Hematocrit 28.2 % (36.0-47.0); Hemoglobin 9.8 g/dL (12.0-16.0); Manual Diff?? YES; Mean Corpuscular HGB CONC 34.8 g/dL (32.0-36.0); Mean Corpuscular Volume 80.6 fl (78.0-98.0); RBC Distribution Width 20.5 % (11.5-14.5); White Blood Cell (WBC) Count 6.7 10x3/uL (4.8-10.8)
[2023-03-23 09:53] LABS: Delete Auto Diff?? YES; Platelet Count 75 10x3/uL (130-400)
[2023-03-23 10:08] LABS: ALT (SGPT) 21 U/L (8-55); AST (SGOT) 76 U/L (5-34); Albumin 2.1 g/dL (3.5-5.0); Alkaline Phosphatase 168 U/L (40-110); Anion Gap 11 mmol/L (10-20); BUN (Urea Nitrogen) 7 mg/dL (7.0-18.7); Bilirubin, Total 2.3 mg/dL (0.2-1.2); Calc. Creatinine Clearance 118 mL/min (70-130); Calcium 8.7 mg/dL (7.8-10.44); Carbon Dioxide 24 mmol/L (22-29); Chloride 105 mmol/L (98-107); Estimated GFR 109; Globulin 3.9 g/dL (2.4-3.5); Glucose 136 mg/dL (70-105); Potassium 3.5 mmol/L (3.5-5.1); Sodium 136 mmol/L (136-145)
[2023-03-23 10:15] LABS: Anisocytosis SLIGHT = 6-15 cells HPF (0-5); Band 1 % (5-11); CellaVision Operator ID lab.dlt; Eosinophils 3 % (0-10); Hypochromia SLIGHT = 6-15 cells HPF (0-5); Lymphocytes 21 % (21-51); Monocytes 12 % (0-10); Neutrophil 60 % (42-75); Platelet Adequacy Comment Platelets Decreased; Polychromasia SLIGHT = 2-3 cells HPF (0-2); Reactive Lymphocytes 1 % (0-10); Target Cells MODERATE= 6-15 cells HPF (0-1); Total Cell Count 100
[2023-03-23] MEDS ORDERED: Potassium Chloride 20 MEQ TAB PO SCH (12:15)
[2023-03-23] MEDS: cefTRIAXone\\ROCEPHIN 2 GM in Sodium Chloride 0.9% 100 ML IVPB SCH (15:20)
[2023-03-24 04:29] LABS: Hematocrit 27.4 % (36.0-47.0); Hemoglobin 9.3 g/dL (12.0-16.0); Mean Corpuscular HGB CONC 33.9 g/dL (32.0-36.0); Mean Corpuscular Hemoglobin 27.6 pg (27.0-31.0); Mean Corpuscular Volume 81.3 fl (78.0-98.0); RBC Distribution Width 20.5 % (11.5-14.5); Red Blood Cell (RBC) Count 3.37 mill/uL (4.20-5.40); White Blood Cell (WBC) Count 7.7 10x3/uL (4.8-10.8)
[2023-03-24 05:11] LABS: ALT (SGPT) 21 U/L (8-55); AST (SGOT) 74 U/L (5-34); Albumin 2.3 g/dL (3.5-5.0); Alkaline Phosphatase 170 U/L (40-110); Anion Gap 7 mmol/L (10-20); BUN (Urea Nitrogen) 6 mg/dL (7.0-18.7); Calc. Creatinine Clearance 114 mL/min (70-130); Calcium 9.3 mg/dL (7.8-10.44); Carbon Dioxide 28 mmol/L (22-29); Chloride 105 mmol/L (98-107); Estimated GFR 108; Globulin 3.8 g/dL (2.4-3.5); Glucose 131 mg/dL (70-105); Potassium 3.8 mmol/L (3.5-5.1); Protein, Total 6.1 g/dL (6.0-8.3); Sodium 136 mmol/L (136-145)
[2023-03-24 05:29] LABS: Delete Auto Diff?? YES; Manual Diff?? YES
[2023-03-24 05:30] LABS: Platelet Count 93 10x3/uL (130-400)
[2023-03-24 07:01] LABS: Anisocytosis SLIGHT = 6-15 cells HPF (0-5); Band 1 % (5-11); CellaVision Operator ID LAB.GE; Eosinophils 3 % (0-10); Large Platelets 9.1 % (0-5); Lymphocytes 31 % (21-51); Monocytes 5 % (0-10); Neutrophil 57 % (42-75); Platelet Adequacy Comment Platelets Decreased; Polychromasia SLIGHT = 2-3 cells HPF (0-2); Reactive Lymphocytes 1 % (0-10); Smudge Cells 20.2 %; Target Cells SLIGHT = 2-5 cells HPF (0-1); Total Cell Count 99
[2023-03-24] MEDS: Multivit, Therapeutic 1 TAB PO SCH (09:45)
[2023-03-24] MEDS: Folic Acid 1 MG TAB PO SCH (09:45)
[2023-03-24] MEDS: Thiamine 100 MG TAB PO SCH (09:45)
[2023-03-24 10:03] VITALS: TEMP 97.6
[2023-03-24 12:04] VITALS: BP 140/88
== END 2023-03-24 15:00 | disposition home or self-care (01) | DRG 871 ==
LOC: ERS 23:24 → ERHOLD 03-19 03:07 → 2NO 03-19 13:23
PROVIDERS: ADMIT Student in an Organized Health Care Education/Training Program; ATTEND Internal Medicine
DX: A41.51 Sepsis due to Escherichia coli [E. coli] (principal); G93.41 Metabolic encephalopathy; I21.A1 Myocardial infarction type 2; E87.20 Acidosis, unspecified; E72.20 Disorder of urea cycle metabolism, unspecified; D68.9 Coagulation defect, unspecified; N13.6 Pyonephrosis; F10.231 Alcohol dependence with withdrawal delirium; R65.20 Severe sepsis without septic shock; E80.6 Other disorders of bilirubin metabolism; J44.9 Chronic obstructive pulmonary disease, unspecified; K70.30 Alcoholic cirrhosis of liver without ascites; F19.10 Other psychoactive substance abuse, uncomplicated; D64.9 Anemia, unspecified; E11.9 Type 2 diabetes mellitus without complications; F31.9 Bipolar disorder, unspecified; F14.10 Cocaine abuse, uncomplicated; F15.10 Other stimulant abuse, uncomplicated; D69.6 Thrombocytopenia, unspecified; E83.42 Hypomagnesemia; E87.6 Hypokalemia; R53.1 Weakness; Z88.0 Allergy status to penicillin; Z91.018 Allergy to other foods; Z79.899 Other long term (current) drug therapy; Z90.710 Acquired absence of both cervix and uterus; Z98.890 Other specified postprocedural states; Z98.51 Tubal ligation status; K76.82 Hepatic encephalopathy
CPT/HCPCS: 36415; 36416; 70450; 71045; 72100; 72125; 74177; 76705; 80053; 80202; 80306; 80307; 81001; 82140; 82550; 83605; 83690; 83735; 84100; 84443; 84484; 84703; 85025; 85610; 85730; 87040; 87077; 87086; 87149; 87186; 93005; 93306; 96361; 96365; 96367; 96375; J0692; J0696; J2060; J2543; J3370-JW; J3411; J3475; J3490; J7050

== ENCOUNTER 2023-04-22 20:57 | Emergency (ER) | payer SELFPAY ==
[2023-04-22] MEDS ORDERED: Acetaminophen 500 MG TAB ONE (22:27)
[2023-04-22] MEDS ORDERED: cefTRIAXone (ROCEPHIN) 1 GM VIAL ONE (22:27)
[2023-04-22] MEDS ORDERED: Sodium Chloride 0.9% 100 ML ONE (22:28)
[2023-04-22 22:51] LABS: SARS-CoV-2 NAA Rapid Test Not Detected (NotDetected)
[2023-04-23] MEDS ORDERED: Azithromycin 500 MG VIAL ONE (00:30)
== END 2023-04-23 01:26 | disposition home or self-care (01) ==
LOC: ERS 20:57
DX: J18.9 Pneumonia, unspecified organism (principal); E11.9 Type 2 diabetes mellitus without complications; I10 Essential (primary) hypertension; Z20.822 Contact with and (suspected) exposure to COVID-19
CPT/HCPCS: 71045; 96365; 96367; J0456; J0696; J3490

== ENCOUNTER 2023-04-30 16:42 | Inpatient (IN) | payer SELFPAY ==
[2023-04-30 17:48] LABS: #Basophils 0.1 thou/uL (0.0-0.2); #Eosinphils 0.2 thou/uL (0.0-0.7); #Monocytes 1.1 thou/uL (0.11-0.59); #Neutrophils 3.5 thou/uL (1.40-6.50); %Basophils 1.8 % (0.0-1.0); %Lymphocytes 34.1 % (21.0-51.0); %Monocytes 15.1 % (0.0-10.0); %Neutrophils 46.6 % (42.0-75.0); Hematocrit 36.2 % (36.0-47.0); Hemoglobin 11.4 g/dL (12.0-16.0); Mean Corpuscular HGB CONC 31.5 g/dL (32.0-36.0); Mean Corpuscular Hemoglobin 27.9 pg (27.0-31.0); Mean Corpuscular Volume 88.7 fl (78.0-98.0); Mean Platelet Volume 11.7 fL (7.4-10.4); Platelet Count 191 10x3/uL (130-400); Red Blood Cell (RBC) Count 4.08 mill/uL (4.20-5.40); White Blood Cell (WBC) Count 7.4 10x3/uL (4.8-10.8)
[2023-04-30 18:28] LABS: Acetaminophen Less than 10 mcg/mL (10.0-30.0); Alcohol Less than 10.0 mg/dL (Less than 10); Lipase 134 U/L (8-78); Salicylate Less than 8.0 mg/dL (15.0-30.0)
[2023-04-30 18:35] LABS: ALT (SGPT) 26 U/L (8-55); AST (SGOT) 81 U/L (5-34); Alcohol Less than 10.0 mg/dL (Less than 10); Alkaline Phosphatase 135 U/L (40-110); Anion Gap 14 mmol/L (10-20); BUN (Urea Nitrogen) 11 mg/dL (7.0-18.7); Bilirubin, Total 2.7 mg/dL (0.2-1.2); Calc. Creatinine Clearance 0 mL/min (70-130); Calcium 8.6 mg/dL (7.8-10.44); Carbon Dioxide 18 mmol/L (22-29); Chloride 108 mmol/L (98-107); Estimated GFR 107; Glucose 86 mg/dL (70-105); Potassium 4.4 mmol/L (3.5-5.1); Sodium 136 mmol/L (136-145)
[2023-04-30 19:10] LABS: Bacteria/HPF None Seen HPF (None Seen); Bilirubin Negative (Negative); Blood, Urine 1+ (Negative); CAUTI Indications for Culture Alt mental st,lethar; Clarity Clear (Clear); Glucose, Urine (Dipstick) Normal (Negative); Ketone, Urine Negative (Negative); Leukocyte Negative Leu/uL (Negative); Nitrite Negative (Negative); Protein, Urine (Dipstick) 70 mg/dL (Neg-Trace); Specific Gravity, Urine 1.022 (1.002-1.036); Squamous Epithelial 0-3 HPF (0-3); Urobilinogen 6 mg/dL (Less than 2); WBC/HPF 0-3 HPF (0-3); pH, Urine 6.5 (5.0-9.0)
[2023-04-30 19:11] LABS: Urine Culture Reflex No No
[2023-04-30 19:19] LABS: Amphetamine Not Detected (NotDetected); Barbiturates Screen Not Detected (NotDetected); Benzodiazepine Screen Detected (NotDetected); Cocaine Metabolite Screen Not Detected (NotDetected); Methadone Not Detected (NotDetected); Methamphetamine Not Detected (NotDetected); Opiate Screen Not Detected (NotDetected); Oxycodone Screen Not Detected (NotDetected); Phencyclidine (PCP) Not Detected (NotDetected); THC/Cannabinoid Screen Not Detected (NotDetected); Tricyclic Screen Not Detected (NotDetected)
[2023-04-30] MEDS ORDERED: Lorazepam 1 MG TAB PO PRN (21:08)
[2023-04-30] MEDS ORDERED: Acetaminophen 325 MG TAB PO PRN (21:08)
[2023-04-30] MEDS ORDERED: Lorazepam 2 MG/ML VIAL IM PRN (21:08)
[2023-04-30] MEDS ORDERED: Ondansetron ODT 4 MG TAB PO PRN (21:08)
[2023-04-30] MEDS ORDERED: Ipratropium/Albuterol 3 ML NEB NEB PRN (21:10)
[2023-04-30] MEDS ORDERED: Electrolyte Replacement Protocol 1 EACH FS PRN (21:15)
[2023-04-30] MEDS ORDERED: Thiamine 100 MG TAB PO SCH (21:15)
[2023-04-30 22:08] LABS: Magnesium 1.6 mg/dL (1.6-2.6); Phosphorus 3.4 mg/dL (2.3-4.7)
[2023-04-30] MEDS: Thiamine HCl 200 MG/2 ML VIAL SLOW IVP SCH (22:40)
[2023-04-30] MEDS ORDERED: Magnesium 2 GM/50 ML(in water) 2 GM in Premix 1 BAG IVPB SCH (23:00)
[2023-04-30 23:38] VITALS: BMI 28.1
[2023-05-01 05:50] LABS: #Basophils 0.1 thou/uL (0.0-0.2); #Eosinphils 0.3 thou/uL (0.0-0.7); #Monocytes 1.1 thou/uL (0.11-0.59); #Neutrophils 2.9 thou/uL (1.40-6.50); %Basophils 1.6 % (0.0-1.0); %Eosinophils 3.6 % (0.0-10.0); %Lymphocytes 36.8 % (21.0-51.0); %Monocytes 16.1 % (0.0-10.0); %Neutrophils 41.8 % (42.0-75.0); Hematocrit 34.4 % (36.0-47.0); Hemoglobin 11.2 g/dL (12.0-16.0); Mean Corpuscular HGB CONC 32.6 g/dL (32.0-36.0); Mean Corpuscular Hemoglobin 27.6 pg (27.0-31.0); Mean Platelet Volume 11.7 fL (7.4-10.4); Platelet Count 186 10x3/uL (130-400); RBC Distribution Width 19.5 % (11.5-14.5); Red Blood Cell (RBC) Count 4.06 mill/uL (4.20-5.40); White Blood Cell (WBC) Count 6.9 10x3/uL (4.8-10.8)
[2023-05-01 05:57] LABS: Mean Corpuscular Volume 84.7 fl (78.0-98.0)
[2023-05-01 06:16] LABS: ALT (SGPT) 20 U/L (8-55); AST (SGOT) 59 U/L (5-34); Albumin 2.4 g/dL (3.5-5.0); Alkaline Phosphatase 115 U/L (40-110); Anion Gap 10 mmol/L (10-20); BUN (Urea Nitrogen) 9 mg/dL (7.0-18.7); Bilirubin, Total 2.2 mg/dL (0.2-1.2); Calc. Creatinine Clearance 121 mL/min (70-130); Calcium 8.5 mg/dL (7.8-10.44); Carbon Dioxide 25 mmol/L (22-29); Chloride 110 mmol/L (98-107); Estimated GFR 108; Globulin 4.5 g/dL (2.4-3.5); Glucose 80 mg/dL (70-105); Potassium 3.6 mmol/L (3.5-5.1); Protein, Total 6.9 g/dL (6.0-8.3); Sodium 141 mmol/L (136-145)
[2023-05-01] MEDS: Multivit, Therapeutic 1 TAB PO SCH (08:11)
[2023-05-01] MEDS: Famotidine 20 MG TAB PO SCH ×2 (08:11→21:10)
[2023-05-01] MEDS: Gabapentin 300 MG CAP PO SCH ×3 (08:11→21:10)
[2023-05-01] MEDS: Folic Acid 1 MG TAB PO SCH (08:12)
[2023-05-01] MEDS ORDERED: FLU VACC QS2023-24(6MOS UP)/PF 60 MCG/0.5 ML SYRINGE IM ONE (09:00)
[2023-05-01] MEDS ORDERED: Lorazepam 1 MG TAB PO PRN (21:08)
[2023-05-01] MEDS: Thiamine HCl 200 MG/2 ML VIAL SLOW IVP SCH (21:10)
[2023-05-02 05:03] LABS: #Basophils 0.1 thou/uL (0.0-0.2); #Eosinphils 0.2 thou/uL (0.0-0.7); #Neutrophils 3.2 thou/uL (1.40-6.50); %Basophils 1.5 % (0.0-1.0); %Eosinophils 3.4 % (0.0-10.0); %Lymphocytes 33.9 % (21.0-51.0); %Monocytes 14.2 % (0.0-10.0); %Neutrophils 46.9 % (42.0-75.0); Hemoglobin 11.2 g/dL (12.0-16.0); Mean Corpuscular Hemoglobin 27.2 pg (27.0-31.0); Mean Platelet Volume 10.5 fL (7.4-10.4); Platelet Count 179 10x3/uL (130-400); RBC Distribution Width 19.6 % (11.5-14.5); Red Blood Cell (RBC) Count 4.12 mill/uL (4.20-5.40); White Blood Cell (WBC) Count 6.9 10x3/uL (4.8-10.8)
[2023-05-02 05:27] LABS: ALT (SGPT) 24 U/L (8-55); AST (SGOT) 69 U/L (5-34); Albumin 2.7 g/dL (3.5-5.0); Alkaline Phosphatase 114 U/L (40-110); Anion Gap 10 mmol/L (10-20); BUN (Urea Nitrogen) 11 mg/dL (7.0-18.7); Bilirubin, Total 2.3 mg/dL (0.2-1.2); Calc. Creatinine Clearance 121 mL/min (70-130); Calcium 8.7 mg/dL (7.8-10.44); Carbon Dioxide 25 mmol/L (22-29); Chloride 107 mmol/L (98-107); Estimated GFR 108; Glucose 89 mg/dL (70-105); Potassium 3.9 mmol/L (3.5-5.1); Protein, Total 7.7 g/dL (6.0-8.3); Sodium 138 mmol/L (136-145)
[2023-05-02] MEDS: Gabapentin 300 MG CAP PO SCH ×3 (10:13→21:29)
[2023-05-02] MEDS: Folic Acid 1 MG TAB PO SCH (10:14)
[2023-05-02] MEDS: Famotidine 20 MG TAB PO SCH ×2 (10:14→21:30)
[2023-05-02] MEDS: Multivit, Therapeutic 1 TAB PO SCH (10:14)
[2023-05-02] MEDS ORDERED: Lorazepam 1 MG TAB PO PRN (21:08)
[2023-05-02] MEDS: Rifaximin 200 MG TAB PO SCH (21:30)
[2023-05-02] MEDS: Thiamine HCl 200 MG/2 ML VIAL SLOW IVP SCH (21:31)
[2023-05-03] MEDS: Multivit, Therapeutic 1 TAB PO SCH (08:15)
[2023-05-03] MEDS: Folic Acid 1 MG TAB PO SCH (08:15)
[2023-05-03] MEDS: Gabapentin 300 MG CAP PO SCH ×3 (08:15→20:53)
[2023-05-03] MEDS: Famotidine 20 MG TAB PO SCH ×2 (08:15→20:53)
[2023-05-03] MEDS: Rifaximin 200 MG TAB PO SCH ×2 (08:15→20:52)
[2023-05-03] MEDS: Thiamine 100 MG TAB PO SCH (20:52)
[2023-05-03] MEDS ORDERED: Lorazepam 0.5 MG TAB PO PRN (21:08)
[2023-05-04] MEDS: Folic Acid 1 MG TAB PO SCH (10:12)
[2023-05-04] MEDS: Gabapentin 300 MG CAP PO SCH ×3 (10:12→21:06)
[2023-05-04] MEDS: Multivit, Therapeutic 1 TAB PO SCH (10:12)
[2023-05-04] MEDS: Rifaximin 200 MG TAB PO SCH ×2 (10:12→21:06)
[2023-05-04] MEDS: Famotidine 20 MG TAB PO SCH ×2 (10:13→21:07)
[2023-05-04] MEDS: Thiamine 100 MG TAB PO SCH (21:42)
[2023-05-05 03:42] LABS: #Basophils 0.1 thou/uL (0.0-0.2); #Eosinphils 0.4 thou/uL (0.0-0.7); #Monocytes 1.1 thou/uL (0.11-0.59); #Neutrophils 2.7 thou/uL (1.40-6.50); %Basophils 1.1 % (0.0-1.0); %Eosinophils 4.9 % (0.0-10.0); %Lymphocytes 41.7 % (21.0-51.0); %Monocytes 15.3 % (0.0-10.0); %Neutrophils 36.9 % (42.0-75.0); Hematocrit 34.4 % (36.0-47.0); Hemoglobin 11.1 g/dL (12.0-16.0); Mean Corpuscular HGB CONC 32.3 g/dL (32.0-36.0); Mean Corpuscular Hemoglobin 27.6 pg (27.0-31.0); Mean Corpuscular Volume 85.6 fl (78.0-98.0); Mean Platelet Volume 11.4 fL (7.4-10.4); Platelet Count 179 10x3/uL (130-400); RBC Distribution Width 18.9 % (11.5-14.5); Red Blood Cell (RBC) Count 4.02 mill/uL (4.20-5.40); White Blood Cell (WBC) Count 7.3 10x3/uL (4.8-10.8)
[2023-05-05 03:57] LABS: Anion Gap 13 mmol/L (10-20); BUN (Urea Nitrogen) 8 mg/dL (7.0-18.7); Calc. Creatinine Clearance 111 mL/min (70-130); Calcium 8.8 mg/dL (7.8-10.44); Carbon Dioxide 24 mmol/L (22-29); Chloride 106 mmol/L (98-107); Estimated GFR 101; Glucose 131 mg/dL (70-105); Potassium 3.8 mmol/L (3.5-5.1); Sodium 139 mmol/L (136-145)
[2023-05-05 08:26] VITALS: BP 127/76; TEMP 98.3
[2023-05-05] MEDS: Rifaximin 200 MG TAB PO SCH (09:11)
[2023-05-05] MEDS: Gabapentin 300 MG CAP PO SCH (09:11)
[2023-05-05] MEDS: Famotidine 20 MG TAB PO SCH (09:11)
[2023-05-05] MEDS: Folic Acid 1 MG TAB PO SCH (09:12)
[2023-05-05] MEDS: Multivit, Therapeutic 1 TAB PO SCH (09:12)
== END 2023-05-05 13:17 | disposition home or self-care (01) | DRG 443 ==
LOC: ERS 16:42 → T4-A 20:51
PROVIDERS: ADMIT Student in an Organized Health Care Education/Training Program; ATTEND Emergency Medicine
DX: K76.82 Hepatic encephalopathy (principal); I10 Essential (primary) hypertension; E11.9 Type 2 diabetes mellitus without complications; K70.30 Alcoholic cirrhosis of liver without ascites; F10.20 Alcohol dependence, uncomplicated; F31.9 Bipolar disorder, unspecified; J44.9 Chronic obstructive pulmonary disease, unspecified; Z90.710 Acquired absence of both cervix and uterus; Z98.890 Other specified postprocedural states; Z88.0 Allergy status to penicillin; E80.6 Other disorders of bilirubin metabolism; Z79.899 Other long term (current) drug therapy
CPT/HCPCS: 36415; 70450; 71045; 80048; 80053; 80306; 80307; 81001; 82140; 83690; 83735; 83930; 84100; 85025; 90471; 90686; 93005; G0008; J2060; J3411; J3475